=== PATIENT | female | born 1955 | race Caucasian/White ===

== ENCOUNTER 2023-12-27 22:10 | Emergency (ER) | payer MEDICARE, MEDICAID, SELFPAY ==
--- NOTE | ~2023-12-27 | CT_ITS ---
EXAMINATION: CT pelvis wo con DATE: 12/27/2023 23:54 INDICATION: Sacrococcygeal pain. Fall. TECHNIQUE: Computed tomography (CT) of the pelvis was performed without intravenous contrast. Automat ed exposure control and iterative reconstruction technique were employed. The dose-length product was 673.58 mGy-cm. COMPARISON: None FINDINGS: There is diverticulosis of the colon without evidence of diverticulitis. Bone alignment is normal. No fracture. There is mild osteoarthritis of the hips. There are dystrophic calcifications in volving left obturator internus muscle, which is smaller than the right. There is moderate lumbar spo ndylosis. There is a chronic compression fracture of L5. There is mild osteoarthritis of the sacrococ cygeal joints. IMPRESSION: 1. No acute fracture. Reviewed, dictated and finalized at location E. E PRINCIPAL IMPRESSION: 1. No acute fracture.
--- NOTE | ~2023-12-27 | CT_ITS ---
EXAMINATION: CT brain wo con DATE: 12/27/2023 22:38 INDICATION: Head injury. TECHNIQUE: Computed tomography (CT) of the head was performed without intravenous contrast. The mA wa s adjusted according to patient size. Iterative reconstruction technique was employed. The dose-lengt h product was 681.00 mGy-cm. COMPARISON: None FINDINGS: There is an old infarct involving right frontal, parietal, and occipital lobes and right in sula. There is no intracranial hemorrhage, acute infarction, or abnormal intracranial mass lesion. Th e ventricles are normal in size. The orbits are normal. There is mild mucosal thickening in the ethmo id sinuses. There is a small left mastoid effusion. IMPRESSION: 1. Large old infarct in the expected distribution of right middle cerebral artery. Reviewed, dictated and finalized at location E. ING MILL OPERATOR IMPRESSION: 1. Large old infarct in the expected distribution of right middle cerebral luann ry.
--- NOTE | ~2023-12-27 | CT_ITS ---
EXAMINATION: CT cervical spine wo con DATE: 12/27/2023 22:42 INDICATION: Head injury. TECHNIQUE: Computed tomography (CT) of the cervical spine was performed without intravenous contrast. Automated exposure control and iterative reconstruction technique were employed. The dose-length pro duct was 375.94 mGy-cm. COMPARISON: None FINDINGS: The visualized portions of the lung apices demonstrate emphysema. The patient's head is rot ated to her right. There is 6 degrees levocurvature of cervical spine. There is mild chronic anterior wedging of T1 vertebral body. There is mildly decreased disc height at C3-C4 and C4-C5, severely dec reased disc height at C5-C6, and mildly decreased disc height at C6-C7. The following disc levels are specifically discussed: C2-C3: There is mild bilateral uncovertebral joint osteoarthritis. There is mild bilateral facet join t osteoarthritis. There is no neural foraminal stenosis. There is no central canal stenosis. C3-C4: There is moderate bilateral uncovertebral joint osteoarthritis. There is moderate right and mi ld left facet joint osteoarthritis. There is no neural foraminal stenosis. There is mild central eliana l stenosis. C4-C5: There is mild bilateral uncovertebral joint osteoarthritis. There is moderate bilateral facet joint osteoarthritis. There is mild bilateral neural foraminal stenosis. There is mild central canal stenosis. C5-C6: There is severe bilateral uncovertebral joint osteoarthritis. There is moderate right and mild left facet joint osteoarthritis. There is mild bilateral neural foraminal stenosis. There is mild ce ntral canal stenosis. C6-C7: There is mild bilateral uncovertebral joint osteoarthritis. There is mild bilateral facet join t osteoarthritis. There is no neural foraminal stenosis. There is no central canal stenosis. C7-T1: There is no uncovertebral joint osteoarthritis. There is mild bilateral facet joint osteoarthr itis. There is no neural foraminal stenosis. There is no central canal stenosis. IMPRESSION: 1. No fracture. 2. Severe spondylosis at C5-C6 and mild spondylosis at other levels. 3. Emphysema. Reviewed, dictated and finalized at location E. GER TRANSPORTATION PLANNING
[2023-12-27 22:13] VITALS: BP 125/75; PULSE 60; RESP 20; TEMP 36.6; O2SAT 100
--- NOTE | 2023-12-27 23:29 | ED.FALL ---
HPI - Fall General Chief Complaint: Fall Stated Complaint: fall Time Seen by Provider: 12/27/23 22:24 Source: patient Mode of arrival: EMS Limitations: dementia History of Present Illness HPI Narrative: Patient is a 68-year-old female, with past medical history of CVA, who presents the ED via EMS with report of a fall. Patient is a resident of [facility]. Per [facility] report, patient had a fall earlier today in which she fell and struck her forehead. Patient denied LOC. She was then sent here for further evaluation. Patient is reportedly on Eliquis. Patient is a poor historian. Unable to tell me further how the fall occurred. She also complains of pain to her tailbone which is new from today. Denies chest pain, difficulty breathing. Related Data Allergies Allergy/AdvReac Type Severity Reaction Status Date / Time Penicillins Allergy Severe Verified 05/14/11 10:44 Review of Systems Review of Systems: CONSTITUTIONAL: Denies fever, chills, or sweats. CARDIOVASCULAR: Denies chest pain. RESPIRATORY: Denies dyspnea. GASTROINTESTINAL: Denies abdominal pain, nausea, vomiting. MUSCULOSKELETAL: See HPI. NEUROLOGIC: See HPI. All systems reviewed & are unremarkable except as noted in HPI and below Exam Narrative: GENERAL: Elderly, frail, non-toxic, in no acute distress. HEAD: Normocephalic, atraumatic. No wounds or contusions. RESPIRATORY: Airway patent, respirations nonlabored. Clear to auscultation bilaterally, no rales, rhonchi, wheezing. CARDIOVASCULAR: Regular rate and rhythm ABDOMINAL: Soft, nontender, nondistended. Normoactive BS. MUSCULOSKELETAL: Limited range of motion of left arm due to previous CVA. Right upper extremity and orthopedic stabilizer splint. No midline thoracic or lumbar spinal tenderness. Mild tenderness in directly over coccyx. SKIN: Warm, dry, normal color. NEURO: A&O X2. Speech clear. Intermittently confused. No ataxic movements. PSYCHIATRIC: Appropriate mood and affect. Normal interaction. Course Vital Signs Vital signs: Vital Signs Temperature 98 F 12/27/23 22:13 Pulse Rate 60 12/27/23 22:13 Respiratory Rate 20 12/27/23 22:13 Blood Pressure 125/75 12/27/23 22:13 Pulse Oximetry 100 12/27/23 22:13 Oxygen Delivery Nasal Cannula 12/27/23 22:13 Oxygen Flow Rate 4 12/27/23 22:13 Temperature 98 F 12/27/23 22:13 Pulse Rate 60 12/27/23 22:13 Respiratory Rate 20 12/27/23 22:13 Blood Pressure 125/75 12/27/23 22:13 Pulse Oximetry 100 12/27/23 22:13 Oxygen Delivery Nasal Cannula 12/27/23 22:13 Oxygen Flow Rate 4 12/27/23 22:13 MDM - Fall MDM Narrative Medical decision making narrative: Patient presented to ED from local [facility] with ground level fall, head injury, reportedly on Eliquis. Hx CVA, bedbound. CT brain and cervical spine without acute traumatic findings. Does show large old infarct. Patient also complaining of pain to tail bone, TTP on exam. CT pelvis obtained and also without traumatic findings, no acute fracture. Patient will be discharged back to [facility]. Discussed return precautions, pain management. D/C in stable condition. Medical Records Attestation: I reviewed the patient's medical records. Imaging Data Attestation: I personally reviewed and interpreted this imaging study as follows: Radiologist's impression: ITS Impressions Head CT 12/27/23 22:45 IMPRESSION: 1. Large old infarct in the expected distribution of right middle cerebral artery. Cervical Spine CT 12/27/23 22:48 IMPRESSION: 1. No fracture. 2. Severe spondylosis at C5-C6 and mild spondylosis at other levels. 3. Emphysema. Pelvis CT 12/27/23 23:58 IMPRESSION: 1. No acute fracture. Discharge Plan Discharge Clinical Impression: Fall from ground level Closed head injury Qualifiers: Encounter type: initial encounter Qualified Code(s): S09.90XA - Unspecified injury of head, initial encounter
[2023-12-28 00:19] VITALS: BP 122/68; PULSE 72; RESP 19; O2SAT 99
--- NOTE | 2023-12-28 00:22 | PC.NURSE ---
Patient began to start showing signs of altered mental status. Patient was saying that it was November. Per EMS patient was A&Ox3-4 en route.
== END 2023-12-28 00:59 ==
PROVIDERS: Emergency Provider Physician Assistant
DX: S09.90XA Unspecified injury of head, initial encounter (principal); S30.0XXA Contusion of lower back and pelvis, initial encounter; W19.XXXA Unspecified fall, initial encounter; Z86.73 Personal history of transient ischemic attack (TIA), and cerebral infarction without residual deficits
CPT/HCPCS: 70450; 72125; 72192; 99284

== ENCOUNTER 2023-12-31 11:42 | Emergency (ER) | payer MEDICARE, MEDICAID, SELFPAY ==
[2023-12-31] VITALS (11 sets, daily range): BP systolic 110–139; BP diastolic 56–71; PULSE 57–98; RESP 19–29; TEMP 37.1; O2SAT 96–100
--- NOTE | ~2023-12-31 | CT_ITS ---
EXAMINATION: CT thoracic lumbar wo con DATE: 12/31/2023 12:34 INDICATION: Trauma. Back pain. TECHNIQUE: Computed tomography (CT) of the thoracic and lumbar spine was performed without intravenou s contrast. The dose-length product was 1704.57 mGy-cm. Automated exposure control and iterative arthur nstruction technique were employed. COMPARISON: None FINDINGS: There is mild superior endplate compression fracture of L5 which is chronic. There is mild multilevel thoracic and lumbar spondylosis. There is accentuated thoracic kyphosis. Mild wedge-shaped appearance to 2 T5-T9, likely chronic. There are multiple left renal stones. There is emphysema. No pneumothorax. There is atherosclerosis without evidence for aneurysm. IMPRESSION: 1. No acute abnormality of the thoracic or lumbar spine. Reviewed, dictated and finalized at location A. M CRANE OPERATOR
--- NOTE | ~2023-12-31 | CT_ITS ---
EXAMINATION: CT cervical spine wo con DATE: 12/31/2023 12:34 INDICATION: Trauma TECHNIQUE: Computed tomography (CT) of the cervical spine was performed without intravenous contrast. The dose-length product was 220 mGy-cm. Automated exposure control and iterative reconstruction tech [email or web address] were employed. COMPARISON: CT dated 12/27/2023 FINDINGS: No acute fracture. There is cervical spondylosis, most severe at C5-6. Craniovertebral junc tion is normal. Odontoid process is normal. There is multilevel uncinate and facet hypertrophy. Mild levoscoliosis. There is emphysema in the lung apices. Study limited by motion. No paraspinal soft tis quirino abnormality. IMPRESSION: 1. No acute abnormality of the cervical spine. No significant interval change. Reviewed, dictated and finalized at location A. CE ACADEMY PROGRAM COORDINATOR
--- NOTE | ~2023-12-31 | CT_ITS ---
EXAMINATION: CT brain wo con DATE: 12/31/2023 12:34 INDICATION: Trauma. Head injury. TECHNIQUE: Computed tomography (CT) of the head was performed without intravenous contrast. The dose- length product was 832.33 mGy-cm. Automated exposure control and iterative reconstruction technique w ere employed. COMPARISON: CT dated 12/27/2023 FINDINGS: Large chronic infarction of the right middle cerebral artery distribution. No ventriculomeg jerry or midline shift. Study limited by motion artifact. Basilar cisterns are patent. There is intracr anial atherosclerosis. There are scattered mild periventricular and subcortical white matter changes, most likely related to small vessel ischemic disease (microangiopathy). No significant abnormality o f the sinuses or mastoids. No depressed skull fractures. IMPRESSION: 1. No acute intracranial abnormality. No interval change. Reviewed, dictated and finalized at location A. NSED SURVEYOR
--- NOTE | 2023-12-31 12:09 | ED.FALL ---
HPI - Fall General Chief Complaint: Fall Stated Complaint: fall History of Present Illness HPI Narrative: 68-year-old female presenting to the emergency department for evaluation after having a fall from bed. Patient does stay at a local intermediate and patient was reportedly leaning out of bed when she fell struck her head and injuring her neck tailbone. Patient denies any loss consciousness. Patient does have history CVA but is not blood thinners per intermediate. Related Data Allergies Allergy/AdvReac Type Severity Reaction Status Date / Time Penicillins Allergy Severe Verified 05/14/11 10:44 Review of Systems Review of Systems: All systems reviewed & are unremarkable except as noted in HPI and below Exam Narrative: APPEARANCE: Well appearing, no pain, no distress, well-nourished. HEAD: normocephalic, atraumatic. EYES: PERRLA/EOMI, conjunctivae clear. NOSE: Normal no drainage EARS:TMS clear with good light reflex. THROAT: Pharynx clear, no exudate. NECK: Supple. No adenopathy, no masses. RESPIRATORY: Airway patent, respirations nonlabored. Clear to auscultation bilaterally, no rales, rhonchi, wheezing. CARDIOVASCULAR: Regular rate and rhythm without murmurs rubs or gallops. ABDOMINAL: Soft, nontender, nondistended, normal bowel sounds MUSCULOSKELETAL: Right arm is in an external fixation NEURO: Alert. Cranial nerves II through XII intact. Grossly intact SKIN: Warm, dry. Normal Color Course Course Emergency Course: No acute injury and patient was discharged back to her care facility. Vital Signs Vital signs: Vital Signs Pulse Rate 98 12/31/23 11:49 Respiratory Rate 20 12/31/23 11:49 Blood Pressure 119/67 12/31/23 11:49 Pulse Oximetry 100 12/31/23 11:49 Oxygen Delivery Nasal Cannula 12/31/23 11:49 Oxygen Flow Rate 2 12/31/23 11:49 Temperature 98.8 F 12/31/23 12:02 Pulse Rate 64 12/31/23 14:24 Respiratory Rate 19 12/31/23 14:24 Blood Pressure 122/70 12/31/23 14:24 Pulse Oximetry 96 12/31/23 14:24 Oxygen Delivery Nasal Cannula 12/31/23 11:49 Oxygen Flow Rate 2 12/31/23 11:49 MDM - Fall MDM Narrative Medical decision making narrative: 68-year-old female presenting ED for evaluation after having a ground level fall. CTS of head neck cervical thoracic and lumbar spine were ordered due to locations of pain. Cervical brain, cervical spine, thoracic spine and lumbar spine were negative for acute fracture. Differential Diagnosis Differential diagnosis: Likely other (Subdural hematoma, subarachnoid fracture, cervical spine fracture, lumbar fracture) Lab Data Labs: Lab Results 12/31/23 Range/Units 12:11 POC Capillary Glucose 148 H (65-105) mg/dl Imaging Data Radiologist's impression: Impressions Head CT 12/31/23 12:35 IMPRESSION: 1. No acute intracranial abnormality. No interval change. Cervical Spine CT 12/31/23 12:40 IMPRESSION: 1. No acute abnormality of the cervical spine. No significant interval change. Thoracic/Lumbar Spine CT 12/31/23 12:43 IMPRESSION: 1. No acute abnormality of the thoracic or lumbar spine. Discharge Plan Discharge Clinical Impression: Head injury, Coccyx pain Patient Disposition: NH Detention/Asst Living Condition: Stable Instructions: Antibiotic Form Additional Instructions: Have close follow-up with your primary care physician Follow-up/Referrals: UNKNOWN,DOCTOR [Primary Care Provider] -
[2023-12-31 12:15] LABS: Glucose Point of Care 148 mg/dl (65-105)
== END 2023-12-31 14:27 ==
PROVIDERS: Emergency Provider Emergency Medicine
DX: S09.90XA Unspecified injury of head, initial encounter (principal); S39.92XA Unspecified injury of lower back, initial encounter; Z86.73 Personal history of transient ischemic attack (TIA), and cerebral infarction without residual deficits; W06.XXXA Fall from bed, initial encounter
CPT/HCPCS: 70450; 72125; 72128; 72131; 82948; 99284

== ENCOUNTER 2025-01-29 08:33 | Outpatient (CLI) | payer MEDICARE, MEDICAID, SELFPAY ==
--- NOTE | ~2025-01-29 | CT_ITS ---
EXAMINATION:CT diagnostic chest w con DATE: 01/29/2025 09:21 INDICATION: Cancer. TECHNIQUE: Computed tomography (CT) of the chest was performed with 75 mL Omnipaque 350 intravenous c ontrast. Automated exposure control and iterative reconstruction technique were employed. The dose-le ngth product (DLP) was 312.05 mGy-cm. COMPARISON: Thoracic spine CT 12/31/2023 FINDINGS: There is moderate emphysema. There are changes of left upper lobectomy. There is mild atele ctasis bilaterally. There is a 14 mm nodule in right lower lobe. There is a cluster of nodules measur ing up to 5 mm in right lower lobe. There is a 7 mm nodule in right upper lobe. No pleural effusion. There is a 12 mm nodule in the thyroid, likely not clinically significant. The heart size is normal. No pericardial effusion. There are coronary artery calcifications. There are cysts in the liver measu ring up to 14 mm. There are stones in left kidney measuring up to 7 mm. There is mild chronic anterio r wedging of multiple vertebral bodies. There is moderate thoracic spondylosis. IMPRESSION: 1. Pulmonary nodules measuring up to 14 mm suspicious for metastatic disease. 2. Moderate emphysema. 3. Left upper lobectomy. Reviewed, dictated and finalized at location A.
--- OUTSIDE RECORDS SUMMARY | 2025-01-29 09:00 | XMS_ITS | CONTINUITY OF CARE DOCUMENT ---
Author Name ashly shilpirodríguez Address Unknown Organization [facility] Address [address] [place] [address] Phone [phone] Care Team Providers Care Reinsurance Accountant Name Role Phone Rosy SHAH, Ralf Unavailable Ralf Gallegos MD Unavailable KYA ABREU MD Unavailable [phone] PROBLEMS Condition Status Date Provider Notes New patient consultation active Lana Vent imiglia RESIDENT CARE DIRECTOR Atrial fib paroxysmal active Lana Ventimi glia RESIDENT CARE DIRECTOR Diabetes mellitus, type 2 active Lana Raghav timiglia RESIDENT CARE DIRECTOR CVA active Lana Ventimiglia RESIDENT CARE DIRECTOR COPD active Lana Ventimiglia RESIDENT CARE DIRECTOR Hyperlipidemia active Lana Ventimiglia FN P Vitamin D deficiency active Lana Ventimig escobar RESIDENT CARE DIRECTOR Hypertension benign essential active Lana Ventimiglia RESIDENT CARE DIRECTOR PVD active Ralf Gallegos MD ENCOUNTERS Date Type Provider Location Encounter Diag nosis - In-person encounter Office Visit Ralf Gallegos MD [facility] PVD - In-person encounter Office Visit Ralf Gallegos MD [facility] - In-person encounter Office Visit Ralf Gallegos MD [facility] New patient consultationAtrial fib paroxysmalDiabetes mellitus, type 2CVACOPDHyperlipidemiaVitami n D deficiencyHypertension benign essential VITAL SIGNS Date Observation Value Provider Body Mass Index (Ratio) 28.03 kg/m2 Geoff Gallegos MD blood pressure, diastolic 69 mm[Hg] Roseanne heard Crandall blood pressure, systolic 106 mm[Hg] Evelyn solo Crandall oxygen saturation, oximetry 90 % Ramona Tahoma pulse rate 72 /min Ramona [place] respiratory rate E&M 12 [facility] 179 [lb_av] Ramona [place] height E&M 67 [in_i] [facility] blood pressure, cuff size regular An félix [place] blood pressure, cuff size regular Ke rri Gruenenfelder blood pressure, diastolic 70 mm[Hg] Ke rri Gruenenfelder blood pressure, systolic 102 mm[Hg] Birdie ri Gruenenfelder oxygen saturation, oximetry 95 % Rajani Grlilynenfelder respiratory rate E&M 12 /min Rajani perrinenenfelder pulse rate 52 /min Rajani Grlilynenfe lder height E&M 67 [in_i] Rajani Gruenenfe lder blood pressure, diastolic 79 mm[Hg] Li nkLogic blood pressure, systolic 116 mm[Hg] Kamla kLogic blood pressure, cuff size regular Do nnell Naveen blood pressure, diastolic 79 mm[Hg] Do nnell Naveen blood pressure, systolic 116 mm[Hg] Leonid mcgraw Naveen oxygen saturation, oximetry 98 % Layo Naveen respiratory rate E&M 16 /min Layo Naveen pulse rate 65 /min Layo Naveen height E&M 67 [in_i] Layo Hodge ALLERGIES Allergy Name Onset Date Reaction Criticality Status PENICILLIN High Criticality active HISTORY OF MEDICATION USE Medication Status Instructions Dates Provider Indications Com ments metoclopramide HCl 10 mg tablet active take 1 pill at bedtime Rajani Tavera cholecalciferol (vitamin D3) 1,250 mcg (50,000 unit) tablet active 1 tablet once a week Lana LI mirtazapine 30 mg tablet active 1 pill at bedtime as needed Rajani Tavera alprazolam 0.5 mg tablet active 1 pill a day as needed Rajani Tavera albuterol sulfate 1.25 mg/3 mL solution for nebulization active 1 mg using nebulizer four times a day Lana Keemishantal LI atorvastatin 40 mg tablet active TAKE 1 TABLET BY MOUTH AT BEDTIME Lana LI dicyclomine 20 mg tablet active 1 tablet via g-tube four times a day as needed Rajani Tavera Eliquis 5 mg tablet active TAKE ONE TABLET BY MOUTH TWICE A DAY Lana Ventimiglia RESIDENT CARE DIRECTOR Flonase Allergy Relief 50 mcg/actuation spray,suspension active ADMINISTER 2 SPRAYS INTO EACH NOSTRIL 2 TIMES A DAY. Lana Keemiglia RESIDENT CARE DIRECTOR Combivent Respimat 20-100 mcg/actuation mist active 1 puff as directed Lana LI metoprolol tartrate 25 mg tablet active Take 1 tablet by mouth twice a day depending on bp Rajani Tavera oxycodone 5 mg capsule active 1 capsule by mouth four times a day Lana LI SOCIAL HISTORY Date Observation Value Provider personal history of marijuana use no Ralf Gallegos MD drug use no Ralf Willett alcohol use no Ralf Willett smoking status Former smoker Ralf cruz MD personal history of marijuana use no Ralf Gallegos MD drug use no Ralf Willett alcohol use no Ralf Willett smoking status Former smoker Ralf cruz MD personal history of marijuana use no Lana Keemiglia RESIDENT CARE DIRECTOR drug use no Lana Bernalg escobar RESIDENT CARE DIRECTOR alcohol use no Lana Keemig escobar [facility] smoking status Former smoker Lana arce RESIDENT CARE DIRECTOR FAMILY HISTORY Family Member Condition Father Stroke/CVA Father Hypertension INSURANCE PROVIDERS Payer name Policy type / Coverage type Jenifer red republican ID ALDO [employer] Other [id number] 51 [place] MEDICARE Medicare [id number] HEALTHCARE AND FAMILY SERVICES Medicaid 0 [id number] ADVANCE DIRECTIVES Name Date DISCUSSED - NO DECISION MADE TREATMENT PLAN Date Name Performer Cardiology: o n statin therapy LDL 61 on last labs H er updated medication list for this problem includes: Atorvastatin 40 Mg Tablet (Atorvastatin) ..... Take 1 tablet by mouth at bedtime Ralf Gallegos MD Cardiology:Some impr ovement in left side Last visit P atient with recent ischemic CVA and admitted at [facility], will obtain those records to evaluate echo and carotid studies c ontinue eliquis and statin Ralf Gallegos MD Cardiology Ralf Gallegos MD Cardiology:This visi t has been a part of the consistent, comprehensive, and ongoing management of the chronic medical condition(s) listed above for the patient. N o recurrance on monitor. F/U in 6 months. Ralf Gallegos MD Cardiology: o n statin therapy LDL 61 on last labs H er updated medication list for this problem includes: Atorvastatin 40 Mg Tablet (Atorvastatin) ..... Take 1 tablet by mouth at bedtime Ralf Gallegos MD Cardiology Ralf Gallegos MD Cardiology: l ast Hgb A1C of 6.2% Ralf Gallegos MD Cardiology: P atient with recent ischemic CVA and admitted at [facility], will obtain those records to evaluate echo and carotid studies c ontinue eliquis and statin Ralf Gallegos MD Cardiology: M onitor showed a large amount of ectopy both supra and ventricular. No a-fib noted. c urrently in NSR, rate controlled. Will decrease BB to BID dosing W ill continue Eliquis for AC W ill do 2 week tele to determine afib burden H er updated medication list for this problem includes: Metoprolol Tartrate 25 Mg Tablet (Metoprolol tartrate) ..... Take 1 tablet by mouth twice a day Ralf Gallegos MD Cardiology:last Hgb A1C of 6.2% [facility] Cardiology:vitamin D of 13 on last labs W ill begin replacement therapy Gunlock Chilangomishantal [facility] Cardiology:on statin therapy LDL 61 on last labs H er updated medication list for this problem includes: Atorvastatin 40 Mg Tablet (Atorvastatin) ..... Take 1 tablet by mouth at bedtime Gunlock Chilangomiglreynold [facility] Cardiology:currently in NSR, rate controlled. Will decrease BB to BID dosing W ill continue Eliquis for AC W ill do 2 week tele to determine afib burden H er updated medication list for this problem includes: Metoprolol Tartrate 25 Mg Tablet (Metoprolol tartrate) ..... Take 1 tablet by mouth twice a day Gunlock Chilangomiglia [facility] Cardiology:Patient w ith recent ischemic CVA and admitted at [facility], will obtain those records to evaluate echo and carotid studies c ontinue eliquis and statin Lana Chilangomiglia [facility] Date Name Monitor - Telemetry (Mobile Cardiac) HISTORY OF PROCEDURES Procedure Date Procedure Name Provider Procedure Notes S tatus Complex e/m visit add on Ralf Gallegos MD completed EKG Ralf Gallegos MD complete d
--- OUTSIDE RECORDS SUMMARY | 2025-01-29 09:00 | XMS_ITS | Clinical Summary ---
Author Organization [facility] Address [address] [place] [address] Care Team Providers Care Supervisor Properties Name Role Phone Daly Redmond DO Primary Care Provider [phone] Source Comments [facility],non-owned Affiliates and Associated Physician Practices is amultiple site organization consisting of ambulatory clinics and hospital sitesin [place], [place], [place] and [place]. This disclosure is being madepursuant to the Care Everywhere program and may not contain all information available regarding this patient. Last updated 18.[facility] Allergies Active Allergy Reactions Criticality Noted Date Comments Penicillins Anaphylaxis High 04/10/2019 Medications * Be aware that medications may not be up to date on this document. Alwaysverify current medications with the patient. Medication Sig Dispensed Refills Start Date End Date Status albuterol (ACCUNEB) 1.25 MG/3ML nebulizer solution 02/27/2019 Active ALPRAZolam (XANAX) 1 MG tablet Take 0.5 (one-half) tablet by mouth once daily 03/25/2019 Active VENTOLIN HFA 108 (90 Base) MCG/ACT inhaler 03/25/2019 Act marilu fluticasone propionate (FLONASE) 50 MCG/ACT nasal spray 03/22/2019 Active dicyclomine (BENTYL) 20 MG tablet Take 1 (one) tablet by mouth 4 times daily Active mirtazapine (REMERON) 30 MG tablet Take 0.5 (one-half) tablet by mouth at bedtime Active OXYGEN Use as directed Active apixaban (Eliquis) 5 MG tablet 1 (one) tablet by Enteral Tube route 2 times daily 12/23/2023 Active metoprolol tartrate IR (Lopressor) 25 MG tablet 1 (one) tablet by Enteral Tube route every 6 hours 12/23/2023 Active atorvastatin (Lipitor) 40 MG tablet 1 (one) tablet by Enteral Tube route at bedtime 12/23/2023 Active metoclopramide (Reglan) 10 MG tablet Take 1 (one) tablet by mouth at bedtime 12/23/2023 Active vitamin D3 (Cholecalciferol) 25 MCG (1000 UNITS) tablet 1 (one) tablet by Enteral Tube route once daily 12/23/2023 Active oxyCODONE (Roxicodone) 5 MG/5ML oral solutionIndications:Se izure (HCC),Cerebrovascular accident (CVA), unspecified mechanism (HCC) 2.5 mL by Enteral Tube route every 6 hours as needed 15 mL 12/23/2023 Active Active Problems Problem Noted Date Diagnosed Date Status epilepticus 11/16/2023 Seizure 11/16/2023 Other closed nondisplaced fr acture of proximal end of right humerus, initial encounter 11/16/2023 Endotracheally intubated 11/16/2023 Cerebrovascular accident (CVA), unspecified mech anism 11/16/2023 COPD (chronic obstructive pulmonary disease) 09/2024 Hx of cancer of lung 11/16/2023 History of lobectomy of lung 11/16/2023 CAD (coronary artery disease) 11/16/2023 Family History Medical History Relation Name Comments Hypertension Father Relation Name Status Comments Father Social History Tobacco Use Types Packs/Day Years Used Date Smoking Tobacco: Former Cigarettes 1 45 Smokeless Tobacco: Never Tobacco Cessation:Counseling Given: Not Answered Alcohol Use Standard Drinks/Week Comments Yes 1 (1 standard drink = 0.6 oz pur e alcohol) AUDIT-C Answer Date Recorded Q1: How often do you have a drink containing alc ohol? Patient declined 11/16/2023 Q2: How many drinks containi ng alcohol do you have on a typical day when you are drinking? Patient declined 11/16/2023 Q3: How often do you have si x or more drinks on one occasion? Patient declined 11/16/2023 PHQ-2 Answer Date Recorded Patient Health Questionnaire-2 Score 0 02/29/2024 Sex and Gender Information Value Date Recorded Sex Assigned at Not on file Gender Identity Not on file Sexual Orientation Not on file Last Filed Vital Signs Vital Sign Reading Time Taken Comments Blood Pressure 102/68 01/29/2024 9:53 AM CDT Pulse 83 01/29/2024 9:53 AM CDT Temperature 36.1 C (97 F) 01/24/2024 10:18 AM CDT Respiratory Rate 10 01/29/2024 9:53 AM CDT Oxygen Saturation 88% 01/24/2024 10:18 AM CDT Inhaled Oxygen Concentration 32% 12/14/2023 5 :48 PM HOUSEMAN Weight 78.5 kg (173 lb) 02/29/2024 10:06 AM CDT Height 167.6 cm (5' 6 ) 11/17/2023 8:00 AM HOUSEMAN Body Mass Index 27.92 11/17/2023 8:00 AM HOUSEMAN Plan of Treatment Health Maintenance Due Date Last Done Comments BONE DENSITY TESTING 1957 COLOGUARD (AGES 45-75) - COLON CA SCREENING 1957 COLON MONITORING 1957 COLONOSCOPY - COLON CA SCREENING 1957 CT COLONOGRAPHY - COLON CA SCREENING 1957 Colorectal Cancer Screening 1957 FIT - COLON CA SCREENING 1957 FLEX SIG - COLON CA SCREENING 1957 MAMMOGRAM 1957 MEDICARE AWV 12 MONTHS 1957 HEPATITIS C SCREENING 08/15/1975 DTAP/TDAP/TD VACCINES (1 - Tdap) 1976 PNEUMOCOCCAL VACCINE 50+ (1 of 2 - PCV) 1976 LUNG CANCER SCREENING 2007 ZOSTER VACCINE (1 of 2) 2007 Respiratory Syncytial Virus (RSV) Vaccine Pt: or over 60 yrs (1 - Risk 60-74 years 1-dose series) 2017 COVID-19 VACCINE ( - season) 2024 INFLUENZA VACCINE (#1) 2024 08/06/2018, 2013 DEPRESSION SCREENING 11/06/2024 11/16/2023 SCREENING FOR DIABETES 12/25/2026 , 12/25/2023, 12/25/2023, Additional history exists HEPATITIS B VACCINE Aged Out No longe r eligible based on patient's age to complete this topic HIB VACCINE Aged Out No longer eligi ble based on patient's age to complete this topic HPV VACCINE Aged Out No longer eligi ble based on patient's age to complete this topic MENINGOCOCCAL (Group B) VACCINE SHARED DECISION-MAKING Aged Out No longer eligible based on patient's age to complete this topic MENINGOCOCCAL GROUPS A/C/Y/W VACCINE Aged Out No longer eligible based on patient's age to complete this topic Medical Devices Implanted Type Area Web Press Operator Helper Offset Device Identifier Shelf Expiration Date Model / Serial / Lot 9 Holes 153mm Right Extra Long Implanted:Qty: 1 on 12/01/2023 by Alex Merchant MD at [facility] Right: Humerus [id number] S / / Screw 3.5mm 6mm 24mm 2.5mm Ft Slf-Tap Implanted:Qty: 2 on 12/01/2023 by Alex Merchant MD at [facility] Right: Humerus [employer] [id number] / / Plate 1/3 Tblr [id number] Ss 2.7/3.5mm Implanted:Qty: 1 on 12/01/2023 by Alex Merchant MD at [facility] Right: Humerus [employer] [id number] / / Screw 2.7mm 24mm T8 Slf-Tap Lck Va Strdr Implanted:Qty: 1 on 12/01/2023 by Alex Merchant MD at [facility] Right: Humerus [employer] [id number] / / Screw 2.7mm 26mm T8 Slf-Tap Lck Va Strdr Implanted:Qty: 1 on 12/01/2023 by Alex Merchant MD at [facility] Right: Humerus [employer] [id number] / / Screw 2.7mm 30mm T8 Slf-Tap Lck Va Strdr Implanted:Qty: 1 on 12/01/2023 by Alex Merchant MD at [facility] Right: Humerus [employer] [id number] / / Screw 3.5mm 2.9mm 16mm T15 Ft Slf-Tap Implanted:Qty: 1 on 12/01/2023 by Alex Merchant MD at [facility] Right: Humerus [employer] [id number] / / Screw 3.5mm 2.9mm 20mm T15 Ft Slf-Tap Implanted:Qty: 3 on 12/01/2023 by Alex Merchant MD at [facility] Right: Humerus [employer] [id number] / / Screw 3.5mm 2.9mm 22mm T15 Ft Slf-Tap Implanted:Qty: 1 on 12/01/2023 by Alex Merchant MD at [facility] Right: Humerus [employer] [id number] / / Screw 3.5mm 6mm 14mm Ft Hank Slf-Tap Sm Implanted:Qty: 1 on 12/01/2023 by Alex Merchant MD at [facility] Right: Humerus [employer] [id number] / / Explanted Type Area Web Press Operator Helper Offset Device Identifier Shelf Expiration Date Model / Serial / Lot Screw 3.5mm 6mm 22mm 2.5mm Ft Slf-Tap Explanted:Qty: 2 on 12/01/2023 at [facility] Right: Humerus [employer] [id number] / / Procedures Procedure Name Priority Date/Time Associated Diagnosis Comments COMPREHENSIVE METABOLIC PANEL AM Draw 12/25/2023 10:58 AM HOUSEMAN from Last 3 Months or Most Recently Relevant to Health Maintenance Results * (ABNORMAL) COMPREHENSIVE METABOLIC PANEL (12/25/2023 10:58 AM HOUSEMAN) BUN 11 7 - 26 mg/dL 12/25/2023 12:[address] [facility] Creatinine 0.38(L) 0.56 - 0.96 mg/dL 12/25/2023 12:[address] [facility] Sodium 145 136 - 145 mmol/L 12/25/2023 12:[address] [facility] Potassium 3.5 3.5 - 4.5 mmol/L 12/25/2023 12:[address] [facility] Chloride 107 98 - 107 mmol/L 12/25/2023 12:[address] [facility] CO2 32(H) 22 - 29 mmol/L 12/25/2023 12:[address] [facility] Glucose 136(H) 70 - 115 mg/dL 12/25/2023 12:[address] [facility] Calcium 9.3 8.4 - 10.2 mg/dL 12/25/2023 12:[address] [facility] Protein Total 6.5 6.0 - 8.3 g/dL 12/25/2023 12:[address] [facility] Albumin 2.9(L) 3.4 - 5.0 g/dL 12/25/2023 12:[address] [facility] Bilirubin Total 0.6 0.2 - 1.2 mg/dL 12/25/2023 12:[address] [facility] Alkaline Phosphatase 205(H) 40 - 150 U/L 12/25/2023 12:[address] [facility] ALT 33 5 - 55 U/L 12/25/2023 12:[address] [facility] AST 22 5 - 34 U/L 12/25/2023 12:[address] [facility] Anion Gap 6 6 - 16 12/25/2023 12:[address] [facility] BUN/Creatinine Ratio 29(H) 7 - 23 12/25/2023 12:[address] [facility] Osmolality Calculated 301(H) 275 - 295 mOsm/kg 12/25/2023 12:[address] [facility] Albumin/Globulin Ratio 0.8(L) 1.1 - 2.3 12/25/2023 12:[address] [facility] eGFR by CKD-EPI >90 >=90 mL/min/1.7 3 m2 12/25/2023 12:[address] [facility] Blood BLOOD SPECIMEN / Unknown Lab Venipuncture / Unknown 12/25/2023 10:58 AM HOUSEMAN 12/25/2023 12:08 PM [facility] Madina Carson MD LAB - CHEMISTRY ORD ERABLES [facility] [address] [place] [address], [facility] [phone] from Last 3 Months or Most Recently Relevant to Health Maintenance Advance Directives * Full Code (Latest Code Status on File) Date Activated Date Inactivated Comments 11/16/2023 2:44 PM 12/25/2023 5:14 PM Care Teams Supervisor Properties Relationship Specialty Start Date End Date Daly Redmond DO [address] [address] PCP - General 03/06/19
--- OUTSIDE RECORDS SUMMARY | 2025-01-29 09:00 | XMS_ITS | Encounter Summary ---
Author Organization [facility] Address [address] [place] [address] Care Team Providers Care Seismic Prospecting Observer Helper Name Role Phone Daly Redmond DO Primary Care Provider [phone] Encounter Details Date Type Department Care Team (Late st Contact Info) Description 04/19/2019 Telephone [facility] [address] [place] [phone] Sowmya Kellogg RN Social History Tobacco Use Types Packs/Day Years Used Date Smoking Tobacco: Every Day Cigarettes 1 45 Smokeless Tobacco: Never Alcohol Use Standard Drinks/Week Comments Yes 1 (1 standard drink = 0.6 oz pur e alcohol) Sex and Gender Information Value Date Recorded Sex Assigned at Not on file Gender Identity Not on file Sexual Orientation Not on file documented as of this encounter Progress Notes * Sowmya Kellogg RN - 04/19/2019 9:57 AM CDT IR received a request for R lower lung 10 mm nodule bx. Spoke to the referral office who would likethe bx. Done post PET ( PET is on schedule for 04/29/29 ) . 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
--- OUTSIDE RECORDS SUMMARY | 2025-01-29 09:00 | XMS_ITS | Continuity of Care Document ---
Author Organization [facility] Address [address] [place] [address] Phone Care Team Providers Care Comprehensive Advisor Name Role Phone Thompson OD, Ortiz Unavailable Unavailable Advance Directives Directive Yes / No Effective Date File Name No Information Encounters Encounter Description Practice Location Reason(s) For Visit Diagnoses Date Provider Providers Copied on Encounter [facility], [address], [place], [place], [id number], [place] tel:[phone] [facility] No Information Nov-0 1-200 1 Thompson OD Ortiz. [address], [place], [address], [place]. tel:[phone] Family History Family Member Type Diagnosis Age At Onset No Information Payers Payer name Insurance type Covered libertarian ID Authoriza tion(s) Medicaid [facility] [id number] Social History Type Description Quantity Date Captured [...]
--- OUTSIDE RECORDS SUMMARY | 2025-01-29 09:00 | XMS_ITS ---
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 okay, it's normal. Depression: 2-3/10 Anxiety/Panic attacks: 7-8/10 Anger/Irritability: Denies Hallucinations/Paranoia: Denies Current Suicidal ideation: Denies Past suicidal ideation: Denies Homicidal ideation: Denies Medical concerns: Bilateral Lung Cancer-going to [facility] receiving radiation right now. Oncologist-cannot recall name Wears 3L home O2 Hospitalizations/medication changes by other providers: Denies Support system: , Daughter, Friends Labs: Had recent blood work will have sign disclosure Screening [place] Suicide Severity Rating Scale (LF) Do you want to initiate with: Screener form 1. Wish to be : Have you wished you were or wished you could go to sleep and not wake up?: No 2. Suicidal Thoughts: Have you actually had any thoughts of killing yourself?: No 6. Suicide Behavior Question: Have you ever done anything,started to do anything, or prepared to end your life?: No Interpretation:: Low Risk Do Not Use CSSRS Interpretation and Follow Up Plan CSSRS Interpretation and Follow Up Plan CSSRS Screen documented using SF: Yes Moderate or High risk requir es selection of a follow up plan: CSSRS No/Low: intervention not needed at this time Examination Category Sub-Category Detail Notes Category Not es General Examination PSYCH: full range o f affect/positive mood , speech clear , no auditory or visual hallucinations , thought content without suicidal ideation or delusions , alert, oriented x4 , cognitive function intact , cooperative with exam , judgement and insight good , thought process logical, goal directed , thought content without delusions , denies any current thoughts/plans of suidicial/homicidal ideation Mental Status Exam Protective Factors: , Children, Coping Skills, Denies Intent/Desire/Means
--- OUTSIDE RECORDS SUMMARY | 2025-01-29 09:00 | XMS_ITS ---
Author Organization [facility] Address [address] [place] [address] Care Team Providers Care Manager Lean Name Role Phone Doris Lynch Primary Care Provider REASON FOR VISIT 2 Month Psych F/U & Med Refill Medications Medication SIG (Take, Route, Frequency, Duration) Notes Start Date End Date Status Ambien CR 6.25 MG 1 tablet at bedtime as needed Orally Once a day as needed for sleep for 30 days Active Xanax 1 MG 1 tablet Orally up t o Twice a day as needed for SEVERE anxiety for 30 days 09/21/2023 Active Zolpidem Tartrate ER 6.25 mg TAKE 1 TABLET BY MOUTH AT BEDTIME NEEDED FOR SLEEP for 30 11/06/2023 Active Remeron 30 MG 1 tablet at bedtime Orally Once a day for 30 days Active Mirtazapine 30 mg TAKE 1 TABLET BY RAJIV TH AT BEDTIME for 30 Active Dicyclomine HCl 20 MG 1 tablet Orally Th ree times a day for 30 day(s) Active Full Kit Nebulizer Set - as directed neb ulizer machine with full kit three times daily for 10 days 02/27/2019 Active Albuterol Sulfate 1.25 MG/3ML 3 ml as needed Inhalation every 8 hrs for 10 days 02/27/2019 Active ALPRAZolam 1 mg TAKE 1 TABLET BY RAJIV TH UP TO TWICE A DAY NEEDED FOR SEVERE ANXIETY FOR 30 DAYS for 30 09/07/2023 Active Flonase 50 MCG/DOSE 1 spray in each nost ril Nasally Once a day for 30 days 01/31/2018 Active Albuterol Sulfate HFA 108 (90 Base) MCG/ACT 2 puffs as needed Inhalation every 4-6 hrs Active Benadryl Allergy 25 MG 1 tablet at bedti me as needed Orally Once a day Active Encounters Encounter Location Date Provider Diagnosis [address] [place] [address] 11/21/2023 Doris Lynch Plan Of Treatment No Information Progress Notes * Linda RAMIREZDOB:1955 (69 yo F)Acc No.[id number]:11/21/2023 UNLOCKED PROGRESS NOTE Patient: Linda MCLAUGHLIN Provider: Roslyn Lynch, MSN, DIRECTOR VALIDATION-BC, PMHNP-BC :1955 A ge:68 Y S ex:Female Date:11/21/2023 Address:[address] [place], [place] [id number] Subjective: * Chief Complaints: * 1 . 2 Month Psych F/U & Med Refill. * Medical History: * Medications: T aking Benadryl Allergy 25 MG Tablet 1 tablet at bedtime as needed Orally Once a day , Taking Albuterol Sulfate HFA 108 (90 Base) MCG/ACT Aerosol Solution 2 puffs as needed Inhalation every 4-6 hrs , Taking Dicyclomine HCl 20 MG Tablet 1 tablet Orally Three times a day , Taking Albuterol Sulfate 1.25 MG/3ML Nebulization Solution 3 ml as needed Inhalation every 8 hrs , Taking Full Kit Nebulizer Set - Miscellaneous as directed nebulizer machine with full kit three times daily , Taking Flonase 50 MCG/DOSE Inhaler 1 spray in each nostril Nasally Once a day , Taking ALPRAZolam 1 mg Tablet TAKE 1 TABLET BY MOUTH UP TO TWICE A DAY NEEDED FOR SEVERE ANXIETY FOR 30 DAYS , Taking Mirtazapine 30 mg Tablet TAKE 1 TABLET BY MOUTH AT BEDTIME , Taking Remeron 30 MG Tablet 1 tablet at bedtime Orally Once a day , Taking Xanax 1 MG Tablet 1 tablet Orally up to Twice a day as needed for SEVERE anxiety , Taking Ambien CR 6.25 MG Tablet Extended Release 1 tablet at bedtime as needed Orally Once a day as needed for sleep , Taking Zolpidem Tartrate ER 6.25 mg Tablet Extended Release TAKE 1 TABLET BY MOUTH AT BEDTIME NEEDED FOR SLEEP Objective: * Vitals: Assessment: Plan: * Treatment: * * Electronic signature of Doris Lynch , [id number] on 01/29/2025 at 08:59 AM CDT Sign off status: Pending * Provider: Roslyn Lynch, MSN, DIRECTOR VALIDATION-BC, PMHNP-BC Date: 0 11/21/2023 Generated for Cheryle hernandez/Yosef/Parish on: 0 01/29/2025 08:59 AM CDT
[2025-01-29 09:11] LABS: Estimated Glomerular Filt Rate > 60
== END 2025-01-29 08:34 | disposition home or self-care (01) ==
PROVIDERS: Visit Provider Nurse Practitioner Family
DX: J44.9 Chronic obstructive pulmonary disease, unspecified (principal); R91.8 Other nonspecific abnormal finding of lung field; J43.9 Emphysema, unspecified
CPT/HCPCS: 71260; Q9967

== ENCOUNTER 2025-02-17 15:41 | Outpatient (CLI) | payer MEDICARE, MEDICAID, SELFPAY ==
[2025-02-17 15:57] LABS: Basophils Absolute Auto 0.1 K/mm3 (0.0-0.1); Basophils Percent Auto 0.8 % (0.2-1.2); Eosinophils Absolute Auto 0.2 K/mm3 (0-0.3); Eosinophils Percent Auto 2.6 % (0-4.4); Hematocrit 45.4 % (37.0-47.0); Hemoglobin 14.5 g/dL (12.0-15.0); Immature Granulocyte Absolute 0.03 K/mm3 (0.00-0.031); Immature Granulocyte Percent A 0.4 % (0-0.5); Lymphocytes Absolute Auto 1.07 K/mm3 (0.9-3.2); Mean Corpuscular HGB Conc 31.9 g/dl (32-36); Mean Corpuscular Hemoglobin 30.3 pg (26-34); Mean Platelet Volume 11.7 fl (7.4-10.4); Monocytes Absolute Auto 0.6 K/mm3 (0.1-0.6); Monocytes Percent Auto 8.4 % (2.6-8.5); Neutrophils Absolute Auto 5.7 K/mm3 (1.3-6.7); Neutrophils Percent Auto 73.8 % (45.5-73.1); Platelet Count Result 220 k/mm3 (150-375); Red Blood Count 4.78 M/mm3 (4.2-5.4); Red Cell Distribution Width 12.7 % (11.5-14.5); White Blood Count 7.7 K/mm3 (4.5-10.0)
[2025-02-17 16:34] LABS: Alanine Aminotransferase 16 U/L (6-35); Albumin Level 4.1 g/dL (3.5-5.1); Alkaline Phosphatase 110 U/L (38-126); Anion Gap 7 mmol/L (4-12); Aspartate Amino Transferase 31 U/L (14-36); Bilirubin,Total 0.7 mg/dL (0.2-1.3); Blood Urea Nitrogen 14 mg/dL (7-17); Calcium 9.2 mg/dL (8.4-10.2); Carbon Dioxide 30 mmol/L (22-30); Chloride 101 mmol/L (98-107); Estimated Glomerular Filt Rate > 60; Glucose 131 mg/dL (65-110); Potassium 3.8 mmol/L (3.4-5.0); Sodium 138 mmol/L (137-145)
--- OUTSIDE RECORDS SUMMARY | 2025-02-17 17:25 | XMS_ITS | Clinical Summary ---
Author Organization [facility] [employer] [facility] [employer] Address [address] [place] [address] Care Team Providers Care Invoice Machine Operator Name Role Phone Daly Redmond DO Primary Care Provider [phone] Source Comments [facility],non-owned Affiliates and Associated Physician Practices is amultiple site organization consisting of ambulatory clinics and hospital sitesin [place], [place], [place] and [place]. This disclosure is being madepursuant to the Care Everywhere program and may not contain all information available regarding this patient. Last updated 18.[facility] Allergies Active Allergy Reactions Criticality Noted Date Comments Penicillins Anaphylaxis High 04/10/2019 Medications * Be aware that medications may not be up to date on this document. Alwaysverify current medications with the patient. albuterol (ACCUNEB) 1.25 MG/3ML nebulizer solution 9 Active ALPRAZolam (XANAX) 1 MG tablet Take 0.5 (one-half) tablet by mouth once daily 9 Active VENTOLIN HFA 108 (90 Base) MCG/ACT inhaler 9 Active fluticasone propionate (FLONASE) 50 MCG/ACT nasal spray 9 Active dicyclomine (BENTYL) 20 MG tablet Take 1 (one) tablet by mouth 4 times daily Active mirtazapine (REMERON) 30 MG tablet Take 0.5 (one-half) tablet by mouth at bedtime Active OXYGEN Use as directed Active apixaban (Eliquis) 5 MG tablet 1 (one) tablet by Enteral Tube route 2 times daily 4 Active metoprolol tartrate IR (Lopressor) 25 MG tablet 1 (one) tablet by Enteral Tube route every 6 hours 4 Active atorvastatin (Lipitor) 40 MG tablet 1 (one) tablet by Enteral Tube route at bedtime 4 Active metoclopramide (Reglan) 10 MG tablet Take 1 (one) tablet by mouth at bedtime 4 Active vitamin D3 (Cholecalciferol ) 25 MCG (1000 UNITS) tablet 1 (one) tablet by Enteral Tube route once daily 4 Active oxyCODONE (Roxicodone) 5 MG/5ML oral solutionIndicati ons:Seizure (HCC),Cerebrovas cular accident (CVA), unspecified mechanism (HCC) 2.5 mL by Enteral Tube route every 6 hours as needed 15 mL 4 Active Active Problems Problem Noted Date Diagnosed [...] Recorded Patient Health Questionnaire-2 Score 0 02/29/2024 Comments No Sex and Gender Information Value Date Recorded Sex Assigned at Not on file Legal Sex Female 5:50 AM BUTTON BUTTONHOLE MARKER Gender Identity Not on file Sexual Orientation [...] Oxygen Concentration 32% 12/14/2023 5 :48 PM BUTTON BUTTONHOLE MARKER Weight 78.5 kg (173 lb) 02/29/2024 10:06 AM CDT Height 167.6 cm (5' 6 ) 11/17/2023 8:00 AM BUTTON BUTTONHOLE MARKER Body Mass Index 27.92 11/17/2023 8:00 AM BUTTON BUTTONHOLE MARKER Plan of Treatment Upcoming Encounters Date Type Department Care Team (Late st Contact Info) Description 03/05/2025 1:30 PM CDT Office Visit [facility] - General Surgery [address] [place] [address], [place] [address] Health Maintenance Due Date Last Done Comments [...] 2017 COVID-19 VACCINE ( - season) 2024 DEPRESSION SCREENING 11/06/2024 11/16/2023 INFLUENZA VACCINE (Season Ended) 2025 08/06/2018, 09/11/2014 SCREENING FOR DIABETES 12/25/2026 , 12/25/2023, 12/25/2023, [...] this topic Medical Devices Implanted Type Area Centrifugal Machine Tender Device Identifier Shelf Expiration Date Model / Serial / Lot 9 Holes 153mm Right Extra Long Implanted:Qty: 1 on 12/01/2023 by Alex Merchant MD at [facility] Right: Humerus [id number] S / / Screw 3.5mm 6mm 24mm 2.5mm Ft Slf-Tap Implanted:Qty: 2 on 12/01/2023 by Alex Merchant MD at [facility] Right: Humerus Synthes Usa [id number] / / Plate 1/3 Tblr [id number] Ss 2.7/3.5mm Implanted:Qty: 1 on 12/01/2023 by Alex Merchant MD at [facility] Right: Humerus [employer] [id number] / / Screw 2.7mm 24mm T8 Slf-Tap Lck Va Strdr Implanted:Qty: 1 on 12/01/2023 by Alex Merchant MD at [facility] Right: Humerus [employer] [id number] / / Screw 2.7mm 26mm T8 Slf-Tap Lck Va Strdr Implanted:Qty: 1 on 12/01/2023 by Alex Merchant MD at [facility] Right: Humerus [employer] [id number] / / Screw 2.7mm 30mm T8 Slf-Tap Lck Va Strdr Implanted:Qty: 1 on 12/01/2023 by Alex Merchant MD at [facility] Right: Humerus [employer] [id number] / / Screw 3.5mm 2.9mm 16mm T15 Ft Slf-Tap Implanted:Qty: 1 on 12/01/2023 by Alex Merchant MD at [facility] Right: Humerus [employer]sa 212.104 / / Screw 3.5mm 2.9mm 20mm T15 Ft Slf-Tap Implanted:Qty: 3 on 12/01/2023 by Alex Merchant MD at [facility] Right: Humerus [employer] 212.106 / / Screw 3.5mm 2.9mm 22mm T15 Ft Slf-Tap Implanted:Qty: 1 on 12/01/2023 by Alex Merchant MD at [facility] Right: Humerus [employer]sa 212.107 / / Screw 3.5mm 6mm 14mm Ft Hank Slf-Tap Sm Implanted:Qty: 1 on 12/01/2023 by Alex Merchant MD at [facility] Right: Humerus [employer] [id number] / / Explanted Type Area Centrifugal Machine Tender Device Identifier Shelf Expiration Date Model / Serial / Lot Screw 3.5mm 6mm 22mm 2.5mm Ft Slf-Tap Explanted:Qty: 2 on 12/01/2023 at [facility] Right: Humerus [employer]sa 204.822 / / Procedures Procedure Name Priority Date/Time Associated Diagnosis Comments COMPREHENSIVE METABOLIC PANEL AM Draw 12/25/2023 10:58 AM BUTTON BUTTONHOLE MARKER from Last 3 Months or Most Recently Relevant to Health Maintenance Results * (ABNORMAL) COMPREHENSIVE METABOLIC PANEL (12/25/2023 10:58 AM BUTTON BUTTONHOLE MARKER) BUN 11 7 - 26 mg/dL 12/25/2023 12:38 PM [facility] Creatinine 0.38(L) 0.56 - 0.96 mg/dL 12/25/2023 12:38 PM [facility] Sodium 145 136 - 145 mmol/L 12/25/2023 12:38 PM BUTTON BUTTONHOLE MARKER [facility] Potassium 3.5 3.5 - 4.5 mmol/L 12/25/2023 12:38 PM [facility] Chloride 107 98 - 107 mmol/L 12/25/2023 12:38 PM [facility] CO2 32(H) 22 - 29 mmol/L 12/25/2023 12:38 PM [facility] Glucose 136(H) 70 - 115 mg/dL 12/25/2023 12:38 PM [facility] Calcium 9.3 8.4 - 10.2 mg/dL 12/25/2023 12:38 PM [facility] Protein Total 6.5 6.0 - 8.3 g/dL 12/25/2023 12:38 PM [facility] Albumin 2.9(L) 3.4 - 5.0 g/dL 12/25/2023 12:38 PM [facility] Bilirubin Total 0.6 0.2 - 1.2 mg/dL 12/25/2023 12:38 PM [facility] Alkaline Phosphatase 205(H) 40 - 150 U/L 12/25/2023 12:38 PM [facility] ALT 33 5 - 55 U/L 12/25/2023 12:38 PM [facility] AST 22 5 - 34 U/L 12/25/2023 12:38 PM [facility] Anion Gap 6 6 - 16 12/25/2023 12:38 PM [facility] BUN/Creatinine Ratio 29(H) 7 - 23 12/25/2023 12:38 PM [facility] Osmolality Calculated 301(H) 275 - 295 mOsm/kg 12/25/2023 12:38 PM [facility] Albumin/Globulin Ratio 0.8(L) 1.1 - 2.3 12/25/2023 12:38 PM [facility] eGFR by CKD-EPI >90 >=90 mL/min/1.7 3 m2 12/25/2023 12:38 PM [facility] Blood BLOOD SPECIMEN / Unknown Lab Venipuncture / Unknown 12/25/2023 10:58 AM BUTTON BUTTONHOLE MARKER 12/25/2023 12:08 PM [facility] Madina Carson MD LAB - CHEMISTRY ORDERABLES Final Result [facility] [address] [place] [address], [facility] [phone] from Last 3 Months or Most Recently Relevant to Health Maintenance Insurance [facility] MEDICARE COMMERCIAL GENERIC Advance Directives * Full Code (Latest Code Status on File) Date Activated Date Inactivated Comments 11/16/2023 2:44 PM 12/25/2023 5:14 PM Care Teams Invoice Machine Operator Relationship Specialty Start Date End Date Daly Redmond DO [address] [place] [address] PCP - General 03/06/19
--- OUTSIDE RECORDS SUMMARY | 2025-02-17 17:25 | XMS_ITS ---
Author Organization [facility] Address [address] [place] [address] Care Team Providers Care Auto Mechanics Instructor Name Role Phone Cris, Cari Primary Care Provider [phone] Allergies Allergen (clinical drug ingredient) Drug/Non Drug [...] Active Encounters Encounter Location Date Provider Diagnosis [address] [place] [address] 09/21/2023 Dorisrocio Noblei Tobacco dependence F17.200 ; [...] May also contact the 24-hour crisis hotline ([facility]), refer to the closest emergency [...] Notes * Lisa RAMIREZ:1955 (68 yo F)Acc No.[id number]:09/21/2023 Patient: Linda MCLAUGHLIN Provider: JEN Pope :1955 A ge:68 Y S ex:Female Date:09/21/2023 Address:[address] [place], [place] [id number] Subjective: * Chief Complaints: * 2 Month [...] COVID-19 emergency, with client/parental/guardian consent. S creening: [place] Suicide Severity Rating Scale (LF) D o [...] M edical concerns: Bilateral Lung Cancer-going to [facility] receiving radiation right now. O ncologist-cannot recall [...] 30.0 30 6.25 MG NA Doris Lynch [employer] - [id number] [employer] [place], [place] NA 0 [place] 1 [id number] 09/07/2023 09/07/2023 ALPRAZolam 34.0 30 1 MG NA Doris Lynch [facility] - [id number] [employer] [place], [place] NA 0 [place] 1 [id number] 08/10/2023 08/10/2023 ALPRAZolam 34.0 30 1 MG NA Doris Lynch [facility] - [id number] Barbra. * Medications: T akingBenadryl Allergy 25 [...] May also contact the 24-hour crisis hotline ([facility]), refer tot closest emergency room [...] - Medication Check,Psychiatric medication refill) * * INE FILLER SERVICER Sign off status: Completed true * Provider: JEN Pope Date: 1 11/21/2022 Generated for Cheryle hernandez/Yosef/Parish on: 0 02/17/2025 05:25 PM CDT History and Physical Notes * HPI [...] Going for walks, playing games, playing with [employer] (x5) Drugs/ETOH/nicotine: Tobacco smoker 10/day; No ETOH [...] Denies Medical concerns: Bilateral Lung Cancer-going to [facility] receiving radiation right now. Oncologist-cannot recall name Wears 3L home O2 Hospitalizations/medication changes by other providers: Denies Support system: , Daughter, Friends Labs: Had recent blood work will have sign disclosure Screening [place] Suicide Severity Rating Scale (LF) Do you [...]
--- OUTSIDE RECORDS SUMMARY | 2025-02-17 17:25 | XMS_ITS | Continuity of Care Document ---
Author Organization [facility] Address [address] [place] [address] Phone Care Team Providers Care Motion Picture Narrator Name Role Phone Thompson OD, Ortiz Unavailable Unavailable Advance Directives Directive Yes / No Effective Date File Name No Information Encounters Encounter Description Practice Location Reason(s) For Visit Diagnoses Date Provider Providers Copied on Encounter [facility], [address], [place], [place], [id number], [place] tel:[phone] [facility] No Information Nov-0 1-200 1 Thompson OD Ortiz. [address] , [address], [place], [address], [place]. tel:[phone] Family History Family Member Type Diagnosis Age At Onset No Information Payers Payer name Insurance type Covered republican ID Authoriza tion(s) [facility] [id number] Social History Type Description Quantity Date Captured [...]
--- OUTSIDE RECORDS SUMMARY | 2025-02-17 17:25 | XMS_ITS | CONTINUITY OF CARE DOCUMENT ---
Author Name ashly shilpirodríguez Address Unknown Organization [facility] Address [address] [place] [address] Phone [phone] Care Team Providers Care Knife Machine Operator Name Role Phone Rosy SHAH, Ralf Unavailable [phone] Ralf Gallegos MD Unavailable KYA ABREU MD Unavailable [phone] PROBLEMS Condition Status Date Provider Notes New patient consultation active Lana Vent imiglia PROPERTY CUSTODIAN Atrial fib paroxysmal active Lana Ventimi glia PROPERTY CUSTODIAN Diabetes mellitus, type 2 active Lana Raghav timiglia PROPERTY CUSTODIAN CVA active Lana Ventimiglia PROPERTY CUSTODIAN COPD active Lana Ventimiglia PROPERTY CUSTODIAN Hyperlipidemia active Lana Ventimiglia FN P Vitamin D deficiency active Lana Ventimig escobar PROPERTY CUSTODIAN Hypertension benign essential active Lana Ventimiglia PROPERTY CUSTODIAN PVD active Ralf Gallegos MD ENCOUNTERS Date Type Provider Location Encounter Diag nosis - In-person encounter Office Visit Ralf Gallegos MD [facility] PVD - In-person encounter Office Visit Ralf Gallegos MD [facility] - In-person encounter Office Visit Ralf Gallegos MD [facility] New patient consultationAtrial fib paroxysmalDiabetes mellitus, type 2CVACOPDHyperlipidemiaVitami n D deficiencyHypertension benign essential VITAL SIGNS Date Observation Value Provider Body Mass Index (Ratio) 28.03 kg/m2 Geoff Gallegos MD blood pressure, diastolic 69 mm[Hg] Roseanne heard Crandall blood pressure, systolic 106 mm[Hg] Evelyn solo Crandall oxygen saturation, oximetry 90 % Ramona Paterson pulse rate 72 /min Ramona Paterson respiratory rate E&M 12 /min [facility] E&M 179 [lb_av] Ramona Paterson height E&M 67 [in_i] [facility] blood pressure, cuff size regular An félix Paterson blood pressure, cuff size regular Ke rri [...] BY MOUTH TWICE A DAY Lana Ventimiglia PROPERTY CUSTODIAN Flonase Allergy Relief 50 mcg/actuation spray,suspension active ADMINISTER 2 SPRAYS INTO EACH NOSTRIL 2 TIMES A DAY. Lana Keemiglia PROPERTY CUSTODIAN Combivent Respimat 20-100 mcg/actuation mist active 1 [...] history of marijuana use no Lana Keemiglia PROPERTY CUSTODIAN drug use no Lana Bernalg escobar PROPERTY CUSTODIAN alcohol use no Lana Keemig escobar [facility] smoking status Former smoker Lana arce PROPERTY CUSTODIAN FAMILY HISTORY Family Member Condition Father Stroke/CVA Father Hypertension INSURANCE PROVIDERS Payer name Policy type / Coverage type Jenifer red republican ID [employer] [place] Other [id number] 51 [place] MEDICARE Medicare [id number] HEALTHCARE AND FAMILY SERVICES Medicaid 0 [id number] ADVANCE DIRECTIVES Name Date DISCUSSED - NO [...] with recent ischemic CVA and admitted at [facility], will obtain those records to evaluate echo [...] with recent ischemic CVA and admitted at [facility], will obtain those records to evaluate echo [...] Gallegos MD Cardiology:last Hgb A1C of 6.2% [facility] Cardiology:vitamin D of 13 on last labs W ill begin replacement therapy Elliott Chilangomishantal [facility] Cardiology:on statin therapy LDL 61 on last labs H er updated medication list for this problem includes: Atorvastatin 40 Mg Tablet (Atorvastatin) ..... Take 1 tablet by mouth at bedtime Elliott Chilangomiglreynold [facility] Cardiology:currently in NSR, rate controlled. Will decrease BB to BID dosing W ill continue Eliquis for AC W ill do 2 week tele to determine afib burden H er updated medication list for this problem includes: Metoprolol Tartrate 25 Mg Tablet (Metoprolol tartrate) ..... Take 1 tablet by mouth twice a day Elliott Chilangomiglia [facility] Cardiology:Patient w ith recent ischemic CVA and admitted at [facility], will obtain those records to evaluate echo and carotid studies c ontinue eliquis and statin Lana Chilangomiglia [facility] Date Name Monitor - Telemetry (Mobile Cardiac) HISTORY OF PROCEDURES Procedure Date Procedure Name Provider Procedure Notes S tatus Complex e/m visit add on Ralf Gallegos MD completed EKG Ralf Gallegos MD complete d
--- OUTSIDE RECORDS SUMMARY | 2025-02-17 17:25 | XMS_ITS | Encounter Summary ---
Author Organization [facility] Health Address [facility] [place] [address] Care Team Providers Care Computing Systems Mechanic Name Role Phone Daly Redmond DO Primary Care Provider [phone] Encounter Details Date Type Department Care Team (Late Contact Info) Description 04/19/2019 Telephone [facility] [address] [place] [address] Sowmya Kellogg RN Social History Tobacco Use Types Packs/Day Years Used Date Smoking Tobacco: Every Day Cigarettes 1 45 Smokeless Tobacco: Never Alcohol Use Standard Drinks/Week Comments Yes 1 (1 standard drink = 0.6 oz pur e alcohol) Comments Unknown Sex and Gender Information Value Date Recorded Sex Assigned at Not on file Legal Sex Female 5:50 AM AUDIO PRODUCTION MANAGER Gender Identity Not on file Sexual Orientation [...] documented in this encounter Plan of Treatment Upcoming Encounters Date Type Department Care Team (Late Contact Info) Description 03/05/2025 1:30 PM CDT Office Visit [facility] - General Surgery [address] [facility], [place] [address] documented as of this encounter Visit Diagnoses Not on filedocumented in this encounter Additional Health Concerns Infection Onset Date Last Indicated Resolved Time COVID-19 Under Investigation 11/21/2023 11/21/2023 11/21/2023 12:30 PM AUDIO PRODUCTION MANAGER documented as of this encounter Care Teams Computing Systems Mechanic Relationship Specialty Start Date End Date Daly Redmond DO [address] [place] [address] PCP - General 03/06/19 documented as of this encounter
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
--- OUTSIDE RECORDS SUMMARY | 2025-02-17 17:26 | XMS_ITS ---
Author Organization [facility] Address [address] [place] [address] Care Team Providers Care Photo Mask Inspector Name Role Phone Doris Lynch Primary Care [...] Active Encounters Encounter Location Date Provider Diagnosis [address] [place] [address] 11/21/2023 Doris Lynch Plan Of Treatment No Information Progress Notes * Linda RAMIREZDOB:1955 (69 yo F)Acc No.[id number]:11/21/2023 UNLOCKED PROGRESS NOTE Patient: Linda MCLAUGHLIN Provider: Roslyn Lynch, MSN, PROGRAMMER OPERATOR NUMERICAL CONTROL-BC, PMHNP-BC :1955 A ge:68 Y S ex:Female Date:11/21/2023 Address:[address] [place], [place] [id number] Subjective: * Chief Complaints: * 1 . [...] * Electronic signature of Doris Lynch , [id number] on 02/17/2025 at 05:25 PM CDT Sign off status: Pending * Provider: Roslyn Lynch, MSN, PROGRAMMER OPERATOR NUMERICAL CONTROL-BC, PMHNP-BC Date: 0 11/21/2023 Generated for Cheryle hernandez/Yosef/Parish on: 0 02/17/2025 05:25 PM CDT
== END 2025-02-17 15:42 | disposition home or self-care (01) ==
PROVIDERS: Visit Provider Internal Medicine Hematology & Oncology
DX: C34.12 Malignant neoplasm of upper lobe, left bronchus or lung (principal)
CPT/HCPCS: 36415; 80053; 85025

== ENCOUNTER 2025-04-01 11:54 | Outpatient (CLI) | payer MEDICARE, MEDICAID, SELFPAY ==
--- NOTE | ~2025-04-01 | PE_ITS ---
EXAMINATION: PET skull to mid thigh DATE: 04/01/2025 14:35 INDICATION: Left lung cancer TECHNIQUE: Blood glucose level was 126 mg/dL. 8.381 mCi of 18-fluorodeoxyglucose (18-FDG) was adminis tered i.v. Low dose computed tomography (CT) images were acquired from the base of the brain to the p roximal thighs for attenuation correction and anatomic localization. Positron emission tomography (PE T) images were acquired in the same distribution beginning 56 minutes after injection. Images includi ng fused PET/CT images were reconstructed in axial, coronal, and sagittal planes. Automated exposure control technique was employed. The dose-length product was 1019.36mGy-cm. COMPARISON: Chest CT dated 01/29/2025 FINDINGS: Head/neck: There is decreased activity such with a large region of encephalomalacia involving the right middle c erebral artery vascular distribution consistent with sequela of chronic infarct. There is symmetric i ncreased activity in the oral cavity, palatine tonsils, submandibular glands, laryngeal muscles and o cular muscles without CT correlate, likely physiologic. No pathologically enlarged cervical lymphaden opathy or suspicious foci of increased FDG uptake in the visualized head or neck. Chest: Moderate emphysema. Postoperative change of prior left thoracotomy and left upper lobectomy. No signi ficant interval change in a 12 x 10 mm right lower lobe nodule which without significant increased FD G uptake with maximal SUV of 2.2. There has also been no significant change in a 9 x 7 mm right upper lobe nodule as well as a cluster of smaller nodules the largest measuring up to 5 mm in the right lo wer lobe, all without abnormal FDG uptake. There is a more solid appearance to a 3 mm nodule in the l eft lower lobe near the apex which without activity. Mild atelectasis/scarring at the lung bases, lef t greater than right. Heart size is normal. Atherosclerotic coronary artery calcific location. Thorac ic aorta is normal in caliber. No pathologically enlarged or FDG avid thoracic lymphadenopathy. Small sliding-type hiatal hernia. Abdomen/pelvis/proximal thighs: There is mild uptake along the tract of a left upper quadrant percutaneous gastrostomy tube with bulb within the body the stomach. Physiologic renal accumulation and excretion of FDG activity in the kid neys, bladder and along portions of ureters. Bilateral nonobstructing renal stones the largest the le ft kidney measuring up to 1 cm. There are multiple scattered low-attenuation hepatic cysts, the large st measuring up to 1.7 cm. Normal degree and heterogenous pattern of increased uptake throughout the liver without radiologic correlate or dominant FDG avid lesion. The gallbladder, pancreas, spleen and bilateral adrenal glands are normal. Mild uptake scattered throughout the bowels without radiologic correlate, also likely physiologic. Mild diverticulosis without adjacent comparison to suggest divert iculitis0. Normal appendix. The uterus is not identified and has likely been surgically resected. The re is mild increased activity with maximal SUV of 5.1 associated with a 6 x 5 x 2.3 cm lesion in the subcutaneous fat along the left lateral margin of the sacrum and coccyx which demonstrates thickened soft tissue density rim and internal septations surrounding central macroscopic fat. No other abnorm al foci of increased FDG uptake or pathologically enlarged lymphadenopathy in the abdomen, pelvis or proximal thighs. Musculoskeletal: Small focus of marked increased FDG activity with maximal SUV of 23.6 at the T3 spinous process. Ther e appears be subtle cortical thinning at the left side of the base of the spinous process which is montgomery spicious for metastatic disease. There is an additional small focus of increased uptake at the latera l right sixth rib which is without radiologic correlate on CT. Curvilinear peripheral sclerosis under lying the articular cortex of the right humeral head suggestive of a small region of osteonecrosis. I nternal fixation with plate and screws and cerclage wires along the right humeral diaphysis. Mild upt kennedy associated with enthesopathy at the bilateral ischial tuberosities and the linear aspera along th e proximal bilateral femurs. IMPRESSION: 1. There is increased FDG uptake associated with a couple bone lesions at the lateral right sixth rib and more prominently at the T3 spinous process what appears to be a region of subtle cortical erosio n new since CT dated 12/31/2023 and concerning for metastatic disease. 2. Moderate emphysema with no significant increased FDG uptake associated with a few indeterminate pu lmonary nodules which are without significant change in the right L2 short interval since the prior s tudy. Despite the absence of significant increased FDG uptake, these could be infectious, inflammator y or malignant/metastatic in etiology. Recommend correlation with any earlier prior outside imaging. 3. Mild FDG uptake associated with a 6 x 5 x 2.3 cm mixed fat tissue and soft tissue density lesion i n the subcutaneous tissues along the left lateral margin of the sacrum and coccyx with appearance fav oring sequela of fat necrosis. The soft tissue density appears relatively thin along septations and a t the periphery of the lesion with no more nodular soft tissue density to elevate concern for neoplas m. Reviewed, dictated and finalized at location A. IMPRESSION: 1. There is increased FDG uptake associated with a couple bone lesions at the l ateral right sixth rib and more prominently at the T3 spinous process what appe ars to be a region of subtle cortical erosion new since CT dated 12/31/2023 and concerning for metastatic disease. 2. Moderate emphysema with no significant increased FDG uptake associated with a few indeterminate pulmonary nodules which are without significant change in t he right L2 short interval since the prior study. Despite the absence of signif icant increased FDG uptake, these could be infectious, inflammatory or malignan t/metastatic in etiology. Recommend correlation with any earlier prior outside imaging. 3. Mild FDG uptake associated with a 6 x 5 x 2.3 cm mixed fat tissue and soft t issue density lesion in the subcutaneous tissues along the left lateral margin of the sacrum and coccyx with appearance favoring sequela of fat necrosis. The soft tissue density appears relatively thin along septations and at the periphe ry of the lesion with no more nodular soft tissue density to elevate concern fo r neoplasm.
--- OUTSIDE RECORDS SUMMARY | 2025-04-01 12:03 | XMS_ITS ---
Author Organization [facility] Address [address] [place] [address] Care Team Providers Care Release And Technical Records Clerk Name Role Phone Doris Lynch Primary Care Provider [phone] REASON FOR VISIT 2 Month Psych F/U [...] Active Encounters Encounter Location Date Provider Diagnosis [address] [place] [address] 11/21/2023 Doris Lynch Plan Of Treatment No Information Progress Notes * Linda RAMIREZDOB:1955 (69 yo F)Acc No.[id number]:11/21/2023 UNLOCKED PROGRESS NOTE Patient: Linda MCLAUGHLIN Provider: Roslyn Lynch, MSN, BRONZE CHASER-BC, PMHNP-BC :1955 A ge:68 Y S ex:Female Date:11/21/2023 Address:[address] [place], [place] [id number] Subjective: * Chief Complaints: * 1 . [...] * Electronic signature of Doris Lynch , [id number] on 04/01/2025 at 12:03 PM CDT Sign off status: Pending * Provider: Roslyn Lynhc, MSN, BRONZE CHASER-BC, PMHNP-BC Date: 0 11/21/2023 Generated for Cheryle hernandez/Yosef/Parish on: 0 04/01/2025 12:03 PM CDT
--- OUTSIDE RECORDS SUMMARY | 2025-04-01 12:03 | XMS_ITS | Continuity of Care Document ---
Author Organization [facility] Address [address] [facility] [address] [place] [address] Phone Care Team Providers Care Media Operator Name Role Phone Thompson OD, Ortiz Unavailable Unavailable Advance Directives Directive Yes / No Effective Date File Name No Information Encounters Encounter Description Practice Location Reason(s) For Visit Diagnoses Date Provider Providers Copied on Encounter [facility], [address], [place], [place], [id number], [place] tel:[phone] [facility] No Information Nov-0 1-200 1 Thompson OD Ortiz. [address] , [address], [place], [address], [place]. tel:[phone] Family History Family Member Type Diagnosis Age At Onset No Information Payers Payer name Insurance type Covered alliance party ID Authoriza tion(s) Medicaid [facility] [id number] Social History Type Description Quantity Date Captured [...]
--- OUTSIDE RECORDS SUMMARY | 2025-04-01 12:03 | XMS_ITS | CONTINUITY OF CARE DOCUMENT ---
Author Name ashly shilpirodríguez Address Unknown Organization [facility] Address [address] [facility] [address] [place] [address] Phone [phone] Care Team Providers Care Cloud Systems Architect Name Role Phone Rosy SHAH, Ralf Unavailable Ralf Gallegos MD Unavailable KYA ABREU MD Unavailable [phone] PROBLEMS Condition Status Date Provider Notes New patient consultation active Lana Vent imiglia [employer] Atrial fib paroxysmal active Lana Ventimi glia [employer] Diabetes mellitus, type 2 active Lana Raghav timiglia [employer] CVA active Lana Ventimiglia [employer] COPD active Lana Ventimiglia [employer] Hyperlipidemia active Lana Ventimiglia FN P Vitamin D deficiency active Lana Ventimig escobar [employer] Hypertension benign essential active Lana Ventimiglia [employer] PVD active Ralf Gallegos MD ENCOUNTERS Date Type Provider Location Encounter Diag nosis - In-person encounter Office Visit Ralf Gallegos MD [facility] - In-person encounter Office Visit Ralf Gallegos MD [facility] - In-person encounter Office Visit Ralf Gallegos MD [facility] New patient consultationAtrial fib paroxysmalDiabetes mellitus, type 2CVACOPDHyperlipidemiaVitami n D deficiencyHypertension benign essential VITAL SIGNS Date Observation Value Provider Body Mass Index (Ratio) 28.03 kg/m2 Geoff Gallegos MD blood pressure, diastolic 69 mm[Hg] Roseanne heard Crandall blood pressure, systolic 106 mm[Hg] Evelyn solo Crandall oxygen saturation, oximetry 90 % Ramona [place] pulse rate 72 /min Ramona [place] respiratory rate E&M 12 /min [facility] weight E&M 179 [lb_av] Ramona [place] height E&M 67 [in_i] [facility] blood pressure, cuff size regular An félix [place] blood pressure, cuff size regular Ke rri [...] BY MOUTH TWICE A DAY Lana Ventimiglia [employer] Flonase Allergy Relief 50 mcg/actuation spray,suspension active ADMINISTER 2 SPRAYS INTO EACH NOSTRIL 2 TIMES A DAY. Lana Keemiglia [employer] Combivent Respimat 20-100 mcg/actuation mist active 1 [...] history of marijuana use no Lana Keemiglia [employer] drug use no Lana Bernalg escobar [employer] alcohol use no Lana Keemig escobar [facility] smoking status Former smoker Lana arce [employer] FAMILY HISTORY Family Member Condition Father Stroke/CVA Father Hypertension INSURANCE PROVIDERS Payer name Policy type / Coverage type Jenifer red constitution party ID [employer] Other [id number] [place] MEDICARE Medicare [id number] HEALTHCARE AND FAMILY SERVICES Medicaid 0 [id number] ADVANCE DIRECTIVES Name Date DISCUSSED - NO [...] with recent ischemic CVA and admitted at [facility], will obtain those records to evaluate echo [...] with recent ischemic CVA and admitted at [facility], will obtain those records to evaluate echo [...] Gallegos MD Cardiology:last Hgb A1C of 6.2% [facility] Cardiology:vitamin D of 13 on last labs W ill begin replacement therapy Wadley Chilangomishantal [facility] Cardiology:on statin therapy LDL 61 on last labs H er updated medication list for this problem includes: Atorvastatin 40 Mg Tablet (Atorvastatin) ..... Take 1 tablet by mouth at bedtime Wadley Chilangomiglreynold [facility] Cardiology:currently in NSR, rate controlled. Will decrease BB to BID dosing W ill continue Eliquis for AC W ill do 2 week tele to determine afib burden H er updated medication list for this problem includes: Metoprolol Tartrate 25 Mg Tablet (Metoprolol tartrate) ..... Take 1 tablet by mouth twice a day Wadley Chilangomiglia [facility] Cardiology:Patient w ith recent ischemic CVA and admitted at [facility], will obtain those records to evaluate echo and carotid studies c ontinue eliquis and statin Lana Chilangomiglia [facility] Date Name Monitor - Telemetry (Mobile Cardiac) HISTORY OF PROCEDURES Procedure Date Procedure Name Provider Procedure Notes S tatus Complex e/m visit add on Ralf Gallegos MD completed EKG Ralf Gallegos MD complete d
--- OUTSIDE RECORDS SUMMARY | 2025-04-01 12:03 | XMS_ITS | Encounter Summary ---
Author Organization [facility] Address [address] [place] [address] [place] [address] Care Team Providers Care Agile Project Manager Name Role Phone Daly Redmond DO Primary Care Provider [phone] Encounter Details Date Type Department Care Team (Late st Contact Info) Description 04/19/2019 Telephone [facility] [address] [place] [address] Sowmya Kellogg RN Social History Tobacco Use Types Packs/Day Years Used Date Smoking Tobacco: Every Day Cigarettes 1 45 Smokeless Tobacco: Never Alcohol Use Standard Drinks/Week Comments Yes 1 (1 standard drink = 0.6 oz pur e alcohol) Comments Unknown Sex and Gender Information Value Date Recorded Sex Assigned at Not on file Legal Sex Female 5:50 AM FEED INSPECTION SUPERVISOR Gender Identity Not on file Sexual Orientation [...] Under Investigation 11/21/2023 11/21/2023 11/21/2023 12:30 PM FEED INSPECTION SUPERVISOR documented as of this encounter Care Teams Agile Project Manager Relationship Specialty Start Date End Date Daly Redmond DO [address] [place] [address] PCP - General 03/06/19 documented as of this encounter
--- OUTSIDE RECORDS SUMMARY | 2025-04-01 12:03 | XMS_ITS | Patient Health Record ---
Author Organization [facility] Address [address] [place] [address] Care Team Providers Care Kitchen Lead Name Role Phone Cris Doris Primary Care Provider [phone] Allergies Allergen (clinical drug ingredient) Drug/Non Drug [...] do you smoke? 6-10 Section Notes: Family Ovviahh-npufih-orcgbrajgc, brother had MS and depression and addiction Occupational History-accounting Eduation Zoqmdyw-ppddcxd-Hgejityi degree Family Mesldjk-rhojfb-xzifalnuqo, brother had MS and depression and addiction Occupational History-accounting Eduation Fuehrfp-zdobbra-Rixrkzgu degree Family Dgrnhir-bwmtjz-tbczfelmnt, brother had MS and depression and addiction Occupational History-accounting Eduation Clvvlkn-nztpman-Ihspkbyj degree Family Nrloeez-dmtldu-imxsezxuel, brother had MS and depression and addiction Occupational History-accounting Eduation Ynwibyq-abhmtqn-Rbknvzte degree Family Uvungkq-hyhztu-ihkhuxdswv, brother had MS and depression and addiction Occupational History-accounting Eduation Bknzfxo-legofxt-Yvfpnggv degree Family Nacxhuj-bwfola-twlazblxiv, brother had MS and depression and addiction Occupational History-accounting Eduation Imxcarp-pyoowmf-Fsqcsdyy degree Family Wrrtcoy-pmpbbj-srynuagxis, brother had MS and depression and addiction Occupational History-accounting Eduation Ejdcema-putrbyv-Kbskmhjp degree Family Lwusbfx-jxuddo-lpfafrbmde, brother had MS and depression and addiction Occupational History-accounting Eduation Idpchrt-tdkortj-Afiolayq degree Family Vbmxsqu-xugdwj-tyehhxizkb, brother had MS and depression and addiction Occupational History-accounting Eduation Lzylhru-jscwoge-Gtshjzjr degree Family Bpnzlth-dxscwb-alxkyurkig, brother had MS and depression and addiction Occupational History-accounting Eduation Inhuxza-nlgjpto-Qrjevajx degree Family Aztjxof-ifbkzs-rxciwhzmms, brother had MS and depression and addiction Occupational History-accounting Eduation Lfesxpp-pgxnahn-Yqnednxv degree Family Gpwqpqz-hqrlcq-jowijmtzde, brother had MS and depression and addiction Occupational History-accounting Eduation Myewjpw-gzzcdfs-Hjhtfsva degree Family Fovutkv-ppedud-eekmatvcll, brother had MS and depression and addiction Occupational History-accounting Eduation Etimghs-vnsctdd-Diafdrsr degree Family Yyrtnes-ifdkli-aeogcaaalt, brother had MS and depression and addiction Occupational History-accounting Eduation Tbftkll-utccfhk-Meevnxri degree Family Bmatipz-upiejs-dlxxhltrbs, brother had MS and depression and addiction Occupational History-accounting Eduation Osefxdx-yuqibxg-Rnsotwxy degree Family Esdddoo-ioaavw-gpevuxsorg, brother had MS and depression and addiction Occupational History-accounting Eduation Ckqwgds-kknwpnz-Xpdjueie degree Family Awtedbl-btwkol-rfiwcljnth, brother had MS and depression and addiction Occupational History-accounting Eduation Yqgtfuq-apkxjxd-Hluekiiu degree Family Ukjxivb-mwlzgm-vzplaewkth, brother had MS and depression and addiction Occupational History-accounting Eduation Mrrmath-yjfklua-Gdycdpnn degree Family Tuagbfi-gpuobm-rifkaxbtkp, brother had MS and depression and addiction Occupational History-accounting Eduation Ddkhwpa-fracqdb-Fzxvuuls degree Family Wmhgnoc-shsuus-rjjfphspmd, brother had MS and depression and addiction Occupational History-accounting Eduation Lddodjv-nvzawnt-Ovrzajip degree Family Yjtnifq-ydulpw-ecnimzmbii, brother had MS and depression and addiction Occupational History-accounting Eduation Vqadkmo-vudmitn-Jbknovlp degree Family Gnslqfp-yqdugn-vltdvkdvpp, brother had MS and depression and addiction Occupational History-accounting Eduation Sqiimtf-jrzyhik-Ddpmdkmx degree Family Eyzbwts-auoxqy-cacqgwmvat, brother had MS and depression and addiction Occupational History-accounting Eduation Uvtsjws-okcatby-Zepglgez degree Family Ddgnqjf-lduwtu-rosevzkmke, brother had MS and depression and addiction Occupational History-accounting Eduation Lucxpms-mtszgfd-Vjslhhph degree Family Docthvw-fewsvj-licbawzicy, brother had MS and depression and addiction Occupational History-accounting Eduation Fogazku-kbrpfeu-Gedwyako degree Family Vzbyqbp-cjkuqd-rmjqdvfbxs, brother had MS and depression and addiction Occupational History-accounting Eduation Ywvqxge-afxnafu-Axgqeqlc degree Family Bkxpwhp-bklqxm-jndsohdjcy, brother had MS and depression and addiction Occupational History-accounting Eduation Hslrxus-kfqdzot-Uepikslt degree Family Djnkmos-mipcsh-hkplxhtuwj, brother had MS and depression and addiction Occupational History-accounting Eduation Fzotpiu-tmaiehx-Rwxehvnm degree Family Lgnucqk-nkyuzm-ehacbamelw, brother had MS and depression and addiction Occupational History-accounting Eduation Uhhhaxw-hgizcbo-Szmqzcny degree Family Fgeiomx-mrjaud-jmvdncmqis, brother had MS and depression and addiction Occupational History-accounting Eduation Qlvfois-cpdgduh-Rtesdkbh degree Family Gnjixza-tpzlxi-qfkxlguepi, brother had MS and depression and addiction Occupational History-accounting Eduation Kvuanqx-sczkebb-Bwkwfoqs degree PRESCRIPTION # FILLED WRITTEN DRUG LABEL QTY DAYS STRENGTH MEDD PRESCRIBER PHARMACY REFILL NO. REFILLS STATE 01/10/2023 12/13/2022 ALPRAZolam 38.0 30 1 MG NA Karen Finley ([facility]) - [id number] [place] 1 [id number] 12/14/2022 12/13/2022 ALPRAZolam 38.0 30 1 MG NA Karen Finley ([facility]) - [id number] [place] 1 [id number] 11/18/2022 10/20/2022 ALPRAZolam 38.0 30 1 MG NA Karen Finley ([facility]) - [id number] Family Sdnxtij-aqfemh-ocfbtskeay, brother had MS and depression and addiction Occupational History-accounting Eduation Kooppxe-rroawzn-Nuthjujf degree PRESCRIPTION # FILLED WRITTEN DRUG LABEL QTY DAYS STRENGTH MEDD PRESCRIBER PHARMACY REFILL NO. REFILLS STATE 02/01/2023 01/19/2023 ALPRAZolam 34.0 30 1 MG NA Doris Lynch [facility] - [id number] [place] 1 [id number] 01/10/2023 12/13/2022 ALPRAZolam 38.0 30 1 MG NA Karen Finley ([facility]) - [id number] [place] PRESCRIPTION # FILLED WRITTEN DRUG LABEL QTY DAYS STRENGTH MME PRESCRIBER PHARMACY REFILL NO. REFILLS STATE 03/23/2023 02/23/2023 ALPRAZolam 34.0 30 1 MG NA Doris Lynch [facility] - [id number] [place] 1 [id number] 03/23/2023 03/23/2023 Zolpidem Tartrate 30.0 30 6.25 MG NA Doris Lynch [facility] - [id number] [place] 1 [id number] 02/24/2023 02/23/2023 Zolpidem Tartrate 30.0 30 6.25 MG NA Cris Doris [facility] - [id number] [place] 1 [id number] 02/23/2023 02/23/2023 ALPRAZolam 34.0 30 1 MG NA CrisCkrocio [facility] - [id number] PRESCRIPTION # FILLED WRITTEN DRUG LABEL QTY DAYS STRENGTH MME PRESCRIB[facility] PHARMACY REFILL NO. REFILLS STATE 05/18/2023 05/18/2023 ALPRAZolam 34.0 30 1 MG NA Cris Doris [facility] - [id number] [place] 1 [id number] 05/18/2023 05/18/2023 Zolpidem Tartrate 30.0 30 6.25 MG NA CrisCkrocio Bill[facility]ley [facility] - [id number] [employer] [place], [place] NA 0 [place] 1 [id number] 04/20/2023 04/20/2023 ALPRAZolam 34.0 30 1 MG NA CrisCkrocio Bill[facility]ley [facility] - [id number] [place] 1 [id number] 04/20/2023 04/20/2023 Zolpidem Tartrate 30.0 30 6.25 MG NA Cris Doris [facility] - [id number] PRESCRIPTION # FILLED WRITTEN DRUG LABEL QTY DAYS STRENGTH MME PRESCRIBER PHARMACY REFILL NO. REFILLS STATE 07/13/2023 07/13/2023 ALPRAZolam 34.0 30 1 MG NA Cris Doris [facility] - [id number] [place] 0 [place] 1 [id number] 07/13/2023 07/13/2023 Zolpidem Tartrate 30.0 30 6.25 MG NA Doris Lynch [facility] - [id number] [place] 0 [place] 1 [id number] 06/15/2023 06/15/2023 ALPRAZolam 34.0 30 1 MG NA Doris Lynch [facility] - [id number] Differential PRESCRIPTION # FILLED WRITTEN DRUG LABEL QTY DAYS STRENGTH MME PRESCRIBER PHARMACY REFILL NO. REFILLS STATE 09/07/2023 09/07/2023 Zolpidem Tartrate 30.0 30 6.25 MG NA Doris Lynch [facility] - [id number] [place] 0 [place] 1 [id number] 09/07/2023 09/07/2023 ALPRAZolam 34.0 30 1 MG NA Doris Lynch [facility] - [id number] [place] 0 [place] 1 [id number] 08/10/2023 08/10/2023 ALPRAZolam 34.0 30 1 MG NA Doris Lynch [facility] - [id number] Differential Family Qsdiyds-dzgikm-dwyrmtygfs, brother had MS and depression and addiction Occupational History-accounting Eduation Znbrndk-atmvvbj-Qzuarbeu degree Problems Problem Type SNOMED Code ICD Code Onset Dates Problem Status W/U Status Risk Notes Problem Tobacco user (629112970) Nicotine dependence, unspecified, uncomplicated (F17.200) Active confirmed Problem 32767026 Other chronic pain (G89.29) Active confirmed Problem 32267560 Unspecified chronic bronchitis (J42) Active confirmed Problem 294256763 Irritable bowel syndrome with diarrhea (K58.0) Active confirmed Problem 62679479 Tobacco dependence (F17.200) Active confirmed Problem 63601359 Anxiety (F41.9) Active confirmed Problem 77529051 Vitamin D deficiency (E55.9) Active confirmed Problem 639086144418294 Obesity (BMI 30.0-34.9) (E66.9) Active confirmed Problem Cancer (184861122) Cancer (C80.1) Active confir med Problem 020368884 Insomnia, unspecified type (G47.00) Active confirmed Problem 31454074 Hyperlipidemia, unspecified hyperlipidemia type (E78.5) Active confirmed Problem 48007882 Chronic obstructive pulmonary disease, unspecified COPD type (J44.9) Active confirmed Problem 94435282 Seasonal allergi c rhinitis due to pollen (J30.1) Active confirmed Problem 06844457 Pulmonary emphysema, unspecified emphysema type (J43.9) 03/06/20 19 Active confirmed Problem Exposure to streptococcal pharyngitis (event) (7900208074243) Strep throat exposure (Z20.818) Active confirmed Problem 349010506 Chronic obstructive pulmonary disease with acute exacerbation (J44.1) Active confirmed Problem 068442590 Pulmonary nodule seen on imaging study (R91.1) Active confirmed Plan Of Treatment Future Test Test Name Order Date Vitamin D, 25-Hydroxy* 12/18/2018 Lipid Panel w/ Chol/HDL Ratio 12/18/2018 Insurance Providers Payer Name Payer Address Payer Phone Subscriber Number Group Number Insured Name Patient Relationship to Insured Coverage Start Date Coverage End Date [employer] [address] [place] [address] [id number] Linda Gray Self - patient is the insured 4 2 MEDICARE PART A [address] [place] [address] [id number] Linda Gray Self - patient is the insured 2 MEDICAID [address] [place] [address] [id number] Linda Gray Self - patient is the insured 3 [employer] [address] [place] [address] [id number] Linda Gray Self - patient is the [...]
--- OUTSIDE RECORDS SUMMARY | 2025-04-01 12:03 | XMS_ITS | Clinical Summary ---
Author Organization [facility] Address [address] [place] [address] Care Team Providers Care Correctional Supervising Cook Name Role Phone Daly Redmond DO Primary Care Provider [phone] Source Comments [facility],non-owned Affiliates and Associated Physician Practices is amultiple site organization consisting of ambulatory clinics and hospital sitesin [place], [place], [place] and [place]. This disclosure is being madepursuant to the Care Everywhere program and may not contain all information available regarding this patient. Last updated 18.[facility] Allergies Active Allergy Reactions Criticality Noted Date [...] on file Legal Sex Female 5:50 AM BUS COMPANY MANAGER Gender Identity Not on file Sexual [...] Oxygen Concentration 32% 12/14/2023 5 :48 PM BUS COMPANY MANAGER Weight 78.5 kg (173 lb) 02/29/2024 10:06 AM CDT Height 167.6 cm (5' 6) 11/17/2023 8:00 AM BUS COMPANY MANAGER Body Mass Index 27.92 11/17/2023 8:00 AM BUS COMPANY MANAGER Plan of Treatment Health Maintenance Due Date Last Done Comments BONE DENSITY TESTING 1957 COLOGUARD (AGES 45-75) - COL ON CA SCREENING 1957 COLON MONITORING 1957 COLONOSCOPY - COLON CA SCREENING 1957 CT COLONOGRAPHY - COLON CA SCREENING 1957 Colorectal Cancer Screening 1957 FIT - COLON CA SCREENING 1957 FLEX SIG - COLON CA SCREENING 1957 MAMMOGRAM 1957 MEDICARE AWV 12 MONTHS 1957 HEPATITIS C SCREENING 08/15/1975 DTAP/TDAP/TD VACCINES (1 - Tdap) 1976 PNEUMOCOCCAL VACCINE 50+ (1 of 2 - PCV) 1976 ZOSTER VACCINE (1 of 2) 2007 Respiratory Syncytial Virus (RSV) Vaccine Pt: or over 60 yrs (1 - Risk 60-74 years 1-dose series) 2017 COVID-19 VACCINE (1 - 2023-2 5 season) 2024 DEPRESSION SCREENING 11/06/2024 11/16/2023 INFLUENZA VACCINE (Season Ended) 2025 08/06/2018, 09/11/2014 HEPATITIS B VACCINE Aged Out No longe [...] A/C/Y/W VACCINE Aged Out No longer eligible b ased on patient's age to complete this topic Medical Devices Implanted Type Area Supervisor Paper Coating Device Identifier Shelf Expiration Date Model / Serial / Lot 9 Holes 153mm Right Extra Long Implanted:Qty: 1 on 12/01/2023 by Alex Merchant MD at [facility] Right: Humerus [id number] S / / Screw 3.5mm 6mm 24mm 2.5mm Ft Slf-Tap Implanted:Qty: 2 on 12/01/2023 by Alex Merchant MD at [facility] Right: Humerus [employer] [id number] / / Plate 1/3 Tblr [id number] Ss 2.7/3.5mm Implanted:Qty: 1 on 12/01/2023 by Alex Merchant MD at [facility] Right: Humerus [employer] [id number] / / Screw 2.7mm 24mm T8 Slf-Tap Lck Va Strdr Implanted:Qty: 1 on 12/01/2023 by Alex Merchant MD at [facility] Right: Humerus [employer] 02.211.024 / / Screw 2.7mm 26mm T8 Slf-Tap Lck Va Strdr Implanted:Qty: 1 on 12/01/2023 by Alex Merchant MD at [facility] Right: Humerus [employer] 02.211.026 / / Screw 2.7mm 30mm T8 Slf-Tap Lck Va Strdr Implanted:Qty: 1 on 12/01/2023 by Alex Merchant MD at [facility] Right: Humerus [employer] 02.211.030 / / Screw 3.5mm 2.9mm 16mm T15 Ft Slf-Tap Implanted:Qty: 1 on 12/01/2023 by Alex Merchant MD at [facility] Right: Humerus [employer] 212.104 / / Screw 3.5mm 2.9mm 20mm T15 Ft Slf-Tap Implanted:Qty: 3 on 12/01/2023 by Alex Merchant MD at [facility] Right: Humerus [employer] 212.106 / / Screw 3.5mm 2.9mm 22mm T15 Ft Slf-Tap Implanted:Qty: 1 on 12/01/2023 by Alex Merchant MD at [facility] Right: Humerus [employer] 212.107 / / Screw 3.5mm 6mm 14mm Ft Hank Slf-Tap Sm Implanted:Qty: 1 on 12/01/2023 by Alex Merchant MD at [facility] Right: Humerus [employer] 204.814 / / Explanted Type Area Supervisor Paper Coating Device Identifier Shelf Expiration Date Model / Serial / Lot Screw 3.5mm 6mm 22mm 2.5mm Ft Slf-Tap Explanted:Qty: 2 on 12/01/2023 at [facility] Right: Humerus S[employer]s [facility] 204.822 / / Insurance MEDICARE COMMERCIAL GENERIC Advance Directives * Full Code (Latest Code Status on File) Date Activated Date Inactivated Comments 11/16/2023 2:44 PM 12/25/2023 5:14 PM Care Teams Correctional Supervising Cook Relationship Specialty Start Date End Date Daly Redmond DO [address] [id number] PCP - General 03/06/19
--- OUTSIDE RECORDS SUMMARY | 2025-04-01 12:03 | XMS_ITS | Clinical Summary ---
Author Organization [facility] Fernanda pineda [facility] Address [address] [place] [address] Care Team Providers Care Compensation And Hris Analyst Name Role Phone Unavailable Primary Care Provider Unavailabl e Allergies Active Allergy Reactions Criticality Noted Date Comments Penicillins Anaphylaxis High 04/10/2019 Medications albuterol sulfate HFA 90 mcg/actuation aerosol inhaler Take 2 Puffs by inhalation every 6 hours as needed for Shortness of Breath. Active tiZANidine (ZANAFLEX) 2 mg Capsule Take 2 mg by mouth 2 times daily. Active sennosides-docu sate sodium (Senna Plus) 8.6-50 mg Capsule Take by mouth 2 times daily. Active metoclopramide HCl (Reglan) 10 mg tablet Take 10 mg by mouth daily at bedtime. Active oxyCODONE (ROXICODONE) 5 mg tablet Take 2.5 mg by mouth every 6 hours as needed for Pain. Active mirtazapine (REMERON SolTab) 15 mg Tablet, Rapid Dissolve Place 15 mg inside cheek daily at bedtime. Active magnesium HYDROXIDE (MILK OF MAGNESIA) 400 mg/5 mL suspension Take 30 mL by mouth 1 time daily as needed for Constipation. Active ALPRAZolam (XANAX) 0.5 mg tablet Take 0.5 mg by mouth 3 times daily as needed for Anxiety. Active apixaban (Eliquis) 5 mg tablet Take 5 mg by mouth 2 times daily. 4 Active cholecalciferol , vitamin D3, 1,000 unit 1,000 Units by Feeding Tube route daily. 4 Active dicyclomine (BENTYL) 20 mg tablet Take 20 mg by mouth 4 times daily before meals and at bedtime. Active metoprolol tartrate (LOPRESSOR) 25 mg tablet Take 25 mg by mouth 2 times daily. 4 Active ipratropium-alb uteroL (Combivent Respimat) 20-100 mcg/actuation Mist Take 1 Puff by inhalation every 6 hours. Active melatonin 5 mg Tablet Take 5 mg by mouth nightly as needed for Insomnia. Active atorvastatin (LIPITOR) 40 mg tablet Take 10 mg by mouth daily at bedtime. 4 Active polyethylene glycol (MIRALAX) 17 gram Powder in Packet Take 17 Grams by mouth daily. Active Active Problems No known active problems Encounters Date Type Department Care Team Description 03/27/2025 External Device Data [facility] ABSTRACTION Provider, Abstract 03/26/2025 External Device Data [facility] ABSTRACTION Provider, Abstract 03/26/2025 External Device Data [facility] ABSTRACTION Provider, Abstract 02/18/2025 External Device Data ST[facility] ABSTRACTION Provider, Abstract 02/18/2025 External Device Data [facility] ABSTRACTION Provider, Abstract 02/18/2025 External Device Data ST[place] ABSTRACTION Provider, Abstract 02/18/2025 Orders Only [facility] Oncology and Hematology [facility] [place] [facility] [address] [place] [address] Alli Pena MD 02/17/2025 3:00 PM CDT Office Visit [facility] On[facility] [place] [facility] [address] [place] [address] Alli Pena MD Malignant neoplasm of upper lobe of left lung (CMS/HCC) (Primary Dx) from Last 3 Months Family History Medical History Relation Name Comments Diabetes Brother 1 Multiple Sclerosis Brother 1 Diabetes Brother 2 Heart Attack Brother 2 Kidney Disease Brother 2 SLE Daughter Stroke Father Hypertension Mother Kidney Cancer Mother Relation Name Status Comments Brother 1 Brother 2 Daughter Alive Father Mother Social History Tobacco Use Types Packs/Day Years Used Date Smoking Tobacco: Former Cigarettes 1 40 0 11/06/1983 - 11/06/2023 Smokeless Tobacco: Never Tobacco Cessation:Counseling Given: Not Answered Alcohol Use Standard Drinks/Week Comments Not Currently 0 (1 standard drink = 0.6 oz pur e alcohol) socially Comments Unknown Sex and Gender Information Value Date Recorded Sex Assigned at Not on file Legal Sex Female 2:41 PM CDT Gender Identity Not on file Sexual Orientation Not on file Last Filed Vital Signs Vital Sign Reading Time Taken Comments Blood Pressure 126/72 02/17/2025 2:53 PM CDT Pulse 58 02/17/2025 2:53 PM CDT Temperature 36.8 C (98.2 F) 02/17/2025 2:53 PM CDT Respiratory Rate 15 02/17/2025 2:53 PM CDT Oxygen Saturation 90% 02/17/2025 2:53 PM CDT Inhaled Oxygen Concentration - - Weight 86.2 kg (190 lb) 02/17/2025 2:53 PM CDT Height 170.2 cm (5' 7) 02/17/2025 2:53 PM CDT Body Mass Index 29.76 02/17/2025 2:53 PM CDT Plan of Treatment Upcoming Encounters Date Type Department Care Team (Late st Contact Info) Description 04/08/2025 4:30 PM CDT Telephone Check Up [facility] Oncology and Hematology - [place] [address] [facility] [address] [place] [address] Alli Pena MD [address] [place] [address] Health Maintenance Due Date Last Done Comments DIABETES ANNUAL FOOT EXAM 1975 DIABETES ANNUAL RETINAL EXAM 1975 DIABETES MICROALBUMIN ANNUAL SCREEN 1975 LDL CHOLESTEROL ANNUAL 1975 DTAP/TDAP/TD VACCINES (1 - Tdap) 1976 PNEUMOCOCCAL VACCINE 50+ YEARS (1 of 2 - PCV) 08/19/19 76 BREAST CANCER SCREENING 1997 COLORECTAL SCREENING 2002 Colorectal Cancer Screening 2002 FIT-DNA Q 3 years 2002 FIT/FOBT Q 1 year 2002 Flex Sig/CT Colonography Q 5 years 2002 ZOSTER VACCINE (1 of 2) 2007 RSV VACCINE (60+ or ) (1 - Risk 60-74 years 1-dose series) 2017 OSTEOPOROSIS SCREENING 2022 DIABETES HBA1C Q 6 MONTHS 05/17/2024 11/17/2023 INFLUENZA VACCINE (#1) 2024 Procedures Procedure Name Priority Date/Time Associated Diagnosis Comments COMPREHENSIVE METABOLIC PANEL Routine 02/17/2025 12:07 PM CDT from Last 3 Months Results * COMPREHENSIVE METABOLIC PANEL (02/17/2025 12:07 PM CDT) Blood us Alli Pena MD CHEMISTRY ORDERABLES Final Resu lt from Last 3 Months Insurance MEDICARE PART A AND B [facility]
[2025-04-01 13:01] LABS: Glucose Point of Care 126 mg/dl (65-105)
== END 2025-04-01 11:55 | disposition home or self-care (01) ==
PROVIDERS: PCP Internal Medicine Hematology & Oncology; Visit Provider Internal Medicine Hematology & Oncology
DX: C34.12 Malignant neoplasm of upper lobe, left bronchus or lung (principal); J43.9 Emphysema, unspecified
CPT/HCPCS: 78815; A9552

== ENCOUNTER 2025-05-05 08:48 | Inpatient (IN) | payer MEDICARE, MEDICAID, SELFPAY ==
[2025-05-05] VITALS (12 sets, daily range): BP systolic 101–147; BP diastolic 62–98; PULSE 56–80; RESP 16–20; TEMP 36.5–37.4; O2SAT 91–97; BMI 27.1
--- NOTE | ~2025-05-05 | XR_ITS ---
CHEST RADIOGRAPH CLINICAL HISTORY: sob, chest pain . COMPARISON: 05/05/2025 TECHNIQUE: Single portable view of the chest. FINDINGS The cardiomediastinal silhouette remains partially obscured. Redemonstration of a left-sided pleural effusion, moderate in size. Patchy opacification of the right lung base. The remainder of the right hemithorax and upper left are clear. IMPRESSION: Moderate left-sided pleural effusion, as detailed above. Reviewed, dictated and finalized at location A.
--- NOTE | ~2025-05-05 | XR_ITS ---
XR chest 2V Ordering provider: Perri Mi History: 69 years Female with . SOB . Comparison: February 01, 2013 FINDINGS: MEDIASTINUM: The cardiac silhouette is slightly enlarged. LUNGS: No pneumothorax. Bibasilar opacification more on the left side. Bilateral interstitial thicken ing suggestive of pulmonary edema versus pneumonitis. Left pleural effusion. OTHER: No free air under the diaphragm. Degenerative changes of the spine. Postoperative changes in the right humerus. IMPRESSION: Bilateral basal pneumonia. Left pleural effusion. Underlying pulmonary edema is highly suggestive. Reviewed, dictated and finalized at location A.
--- NOTE | 2025-05-05 08:57 | ECG_ITS ---
Test Date: 2025-05-05 08:55:44 Measurements Intervals [place]wey Rate: 74 P: -53 TX: 131 QRS: -13 QRSD: 112 T: -46 QT: 428 QTc: 476 Interpretive Statements SINUS RHYTHM WITH OCCASIONAL VENTRICULAR PREMATURE COMPLEXES WITH OCCASIONAL SUPRAVENTRICULAR PREMATURE COMPLEXES INCOMPLETE RIGHT BUNDLE BRANCH BLOCK ST DEVIATION AND MODERATE T-WAVE ABNORMALITY, CONSIDER ANTERIOR ISCHEMIA BASELINE ARTIFACT- I, II, AVR, AVF, V1, V3-V6 ABNORMAL ECG No previous ECG available for comparison Electronically Signed On 05-05-2025 09:55:11 CDT by Jay Fuchs D.O.
[2025-05-05 09:22] LABS: Hematocrit 39.2 % (37.0-47.0); Hemoglobin 11.8 g/dL (12.0-15.0); Immature Granulocyte Percent A 2.3 % (0-0.5); Lymphocytes Absolute Auto 2.14 K/mm3 (0.9-3.2); Mean Corpuscular HGB Conc 30.1 g/dl (32-36); Mean Corpuscular Hemoglobin 29.3 pg (26-34); Mean Corpuscular Volume 97.3 fl (80-100); Nucleated Red Blood Cells Absolute Auto 0.000 K/mm3 (0.0-0.012); Nucleated Red Blood Cells Perc 0.0 % (0.0-0.2); Platelet Count Result 310 k/mm3 (150-375); Red Blood Count 4.03 M/mm3 (4.2-5.4); White Blood Count 12.2 K/mm3 (4.5-10.0)
[2025-05-05 09:40] LABS: Alanine Aminotransferase 22 U/L (6-35); Albumin Level 3.2 g/dL (3.5-5.1); Alkaline Phosphatase 106 U/L (38-126); Anion Gap 6 mmol/L (4-12); Aspartate Amino Transferase 39 U/L (14-36); Bilirubin,Total 0.3 mg/dL (0.2-1.3); Blood Urea Nitrogen 8 mg/dL (7-17); Calcium 9.4 mg/dL (8.4-10.2); Carbon Dioxide 37 mmol/L (22-30); Chloride 99 mmol/L (98-107); Estimated CRCL calculation 84 ml/min; Estimated Glomerular Filt Rate > 60; Glucose 139 mg/dL (65-110); Potassium 3.2 mmol/L (3.4-5.0); Sodium 142 mmol/L (137-145); Total Protein 7.5 g/dL (6.3-8.2)
--- NOTE | 2025-05-05 10:55 | ED_ITS ---
HPI - SOB/Dyspnea General Chief Complaint: Shortness of Breath/Dyspnea Stated Complaint: shortness of breath, dull cp Time Seen by Provider: 05/05/25 10:37 History of Present Illness HPI Narrative: Pt presents with SOB worsening over last 3 days. Pt is on 2l per concentrator and this was apparently not working and her sats dropped into 80's. Pt is now at 96% on 2L nc. Pt denies fever or CP. Related Data Allergies Allergy/AdvReac Type Severity Reaction Status Date / Time Penicillins Allergy Severe Anaphylaxis Verified 05/05/25 09:00 Review of Systems 2 Review of Systems: All systems reviewed & are unremarkable except as noted in HPI and below PMFSH Past Medical History Medical History COPD (chronic obstructive pulmonary disease) Atrial fibrillation CVA (cerebral vascular accident) Social History Social History Smoking status: Former smoker Tobacco type: cigarettes Smoking end date: 11/10/23 Alcohol intake: former Substance use: never Do You Feel Safe in your Home?: Yes Lack of Transportation: No Lack of Food: Never True Current Housing: I Have Housing Concerned About Future Housing: No Difficulty Paying Gas/Electric Bills: No Difficulty Paying for Meds: No Currently Unemployed: No Education: Decline to Answer Difficulty w/ Childcare or Family Care: No Spiritual care concerns: No Exam 2 Const: General: healthy appearing and no acute distress Nutritional Appearance: well nourished Orientation/consciousness: patient oriented x3 Chest: Chest palpation & inspection: normal inspection of the chest Resp: Effort & Inspection: normal respiratory effort Auscultation: crackles Cardio: Rate: regular rate Rhythm: regular rhythm GI: GI Palp: Yes Soft to palpation and Yes Tenderness to palpation present (GI) Auscultation: normal bowel sounds Skin: General skin exam: normal color Rashes: no rashes Wounds: no wounds Neuro: General: patient oriented x3, moves all extremities, no meningeal signs and no focal motor deficits Speech: normal speech Extrem: General: normal to inspection and no clubbing, cyanosis or edema Psych: Mental Status: mental status grossly normal Affect: normal affect Attitude: cooperative Course Vital Signs Vital signs: Vital Signs Temperature 98.0 F 05/05/25 08:51 Pulse Rate 61 05/05/25 08:51 Respiratory Rate 20 05/05/25 08:51 Pulse Oximetry 95 05/05/25 08:51 Oxygen Delivery Nasal Cannula 05/05/25 08:51 Oxygen Flow Rate 2 05/05/25 08:51 Temperature 99.3 F 05/05/25 15:34 Pulse Rate 76 05/05/25 16:00 Respiratory Rate 20 05/05/25 15:34 Blood Pressure 147/98 H 05/05/25 15:34 Pulse Oximetry 91 05/05/25 15:34 Oxygen Delivery Nasal Cannula 05/05/25 14:33 Oxygen Flow Rate 2 05/05/25 14:33 MDM - SOB/Dyspnea MDM Narrative Medical decision making narrative: Pt presents with SOB getting worse. sats ok now on 2L. cxr looks like chf and bnp elevated. will give dose of lasix. discussed with Sharda Osborne and agrees to admit Differential Diagnosis Differential diagnosis: Likely acute exacerbation of chronic obstructive airways disease, congestive heart failure, community acquired pneumonia, asthma with exacerbation and pulmonary embolism Lab Data 05/05/25 09:07 05/05/25 09:07 Labs: Lab Results 05/05/25 Range/Units 09:07 WBC 12.2 H (4.5-10.0) K/mm3 RBC 4.03 L (4.2-5.4) M/mm3 Hgb 11.8 L (12.0-15.0) g/dL Hct 39.2 (37.0-47.0) % MCV 97.3 (80-100) fl MCH 29.3 (26-34) pg MCHC 30.1 L (32-36) g/dl RDW 12.8 (11.5-14.5) % Plt Count 310 (150-375) k/mm3 MPV 12.1 H (7.4-10.4) fl Immature Gran % (Auto) 2.3 H (0-0.5) % Neut % (Auto) 67.6 (45.5-73.1) % Lymph % (Auto) 17.6 L (18.3-44.2) % [place] % (Auto) 7.3 (2.6-8.5) % Eos % (Auto) 4.4 (0-4.4) % Baso % (Auto) 0.8 (0.2-1.2) % Lymph # (Auto) 2.14 (0.9-3.2) K/mm3 [place] # (Auto) 0.9 H (0.1-0.6) K/mm3 Eos # (Auto) 0.5 H (0-0.3) K/mm3 Baso # (Auto) 0.1 (0.0-0.1) K/mm3 Abs Immat Gran (auto) 0.28 H (0.00-0.031) K/mm3 Absolute Neuts (auto) 8.2 H (1.3-6.7) K/mm3 Absolute Nucleated RBC 0.000 (0.0-0.012) K/mm3 Nucleated RBC % 0.0 (0.0-0.2) % Sodium 142 (137-145) mmol/L Potassium 3.2 L (3.4-5.0) mmol/L Chloride 99 (98-107) mmol/L Carbon Dioxide 37 H (22-30) mmol/L Anion Gap 6 (4-12) mmol/L BUN 8 D (7-17) mg/dL Creatinine 0.53 L (0.7-1.0) mg/dL Estim Creat Clear Calc 84 ml/min Estimated GFR > 60 (59 - ) Glucose 139 H (65-110) mg/dL Calcium 9.4 (8.4-10.2) mg/dL Total Bilirubin 0.3 (0.2-1.3) mg/dL AST 39 H (14-36) U/L ALT 22 (6-35) U/L Alkaline Phosphatase 106 (38-126) U/L Troponin I < 0.012 (0.000-0.034) ng/mL NT-Pro-B Natriuret Pep 716 H (19.9-100) pg/mL Total Protein 7.5 (6.3-8.2) g/dL Albumin 3.2 L (3.5-5.1) g/dL Discharge Plan Discharge Clinical Impression: Congestive heart failure Patient Disposition: Still a Patient Condition: Stable
[2025-05-05] MEDS: FUROSEMIDE INJ 40 MG/4 ML VIAL IV PUSH (11:38)
--- OUTSIDE RECORDS SUMMARY | 2025-05-05 11:43 | XMS_ITS | Clinical Summary ---
Author Organization [facility] Fernanda Zarate Address [address] [place] [address] Care Team Providers Care Hydraulic Press Operator Name Role Phone Unavailable Primary Care Provider [...] Encounters Date Type Department Care Team Description 04/07/2025 4:30 PM CDT Telephone Check Up [facility] Hematology [facility] [address] [place] [address] Alli Pena MD Malignant neoplasm of upper lobe of left lung (CMS/HCC) (Primary Dx) 04/04/2025 Orders Only [facility] Oncology [facility] Hematology [facility] [address] [place] [address] Alli Pena MD 04/02/2025 Abstract [facility] Oncology [facility] [address] [place] [address] Alli Pena MD 03/27/2025 External Device Data ST[facility] ABSTRACTION Provider, Abstract 03/26/2025 External Device Data [facility] ABSTRACTION Provider, Abstract 03/26/2025 External Device Data [facility] ABSTRACTION Provider, Abstract 02/18/2025 External Device Data [facility] ABSTRACTION Provider, Abstract 02/18/2025 External Device Data ST[facility] ABSTRACTION Provider, Abstract 02/18/2025 External Device Data STL ABSTRACTION Provider, Abstract 02/18/2025 Orders Only [facility] Oncology and Hematology [facility] [address] [place] [address] Alli Pena MD 02/17/2025 3:00 PM CDT Office Visit [facility] Oncology and Hematology [facility] [address] [place] [address] Alli Pena MD Malignant neoplasm of upper [...] Care Team (Late st Contact Info) Description 07/21/2025 10:00 AM CDT Office Visit [facility] Oncology and Hematology [facility] [address] [place] [address] Alli Pena MD [address] [place] [address] Health Maintenance Due Date Last [...] Procedure Name Priority Date/Time Associated Diagnosis Comments GLUCOSE LEVEL Routine 04/01/2025 3:41 PM CDT COMPREHENSIVE METABOLIC PANEL Routine 02/17/2025 12:07 PM CDT from Last 3 Months Results * GLUCOSE LEVEL (04/01/2025 3:41 PM CDT) Blood Alli Pena MD CHEMISTRY ORDERABLES Final Resu lt * COMPREHENSIVE METABOLIC PANEL (02/17/2025 12:07 PM CDT) Blood Alli Pena MD CHEMISTRY ORDERABLES Final Resu lt from Last 3 Months Insurance MEDICARE PART A AND B [facility] [place]
--- OUTSIDE RECORDS SUMMARY | 2025-05-05 11:43 | XMS_ITS | Clinical Summary ---
Author Organization [facility] Address [address] [place] [address] Care Team Providers Care Chief School Finance Officer Name Role Phone Dayl Redmond DO Primary Care Provider [phone] Source Comments [facility],non-owned Affiliates and Associated Physician Practices is amultiple site organization consisting of ambulatory clinics and hospital sitesin [place], [place], [place] and [place]. This disclosure is being madepursuant to the Care Everywhere program and may not contain all information available regarding this patient. Last updated 18.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 Gender Identity Not on file Sexual [...] Oxygen Concentration 32% 12/14/2023 5 :48 PM ELECTRICAL INSTALLATION SUPERVISOR Weight 78.5 kg (173 lb) 02/29/2024 10:06 AM CDT Height 167.6 cm (5' 6) 11/17/2023 8:00 AM ELECTRICAL INSTALLATION SUPERVISOR Body Mass Index 27.92 11/17/2023 8:00 AM ELECTRICAL INSTALLATION SUPERVISOR Plan of Treatment Health Maintenance Due Date [...] this topic Medical Devices Implanted Type Area Document Management Consultant Device Identifier Shelf Expiration Date Model / Serial / Lot 9 Holes 153mm Right Extra Long Implanted:Qty: 1 on 12/01/2023 by Alex Merchant MD at [facility] Right: Humerus [id number] S / / Screw 3.5mm 6mm 24mm 2.5mm Ft Slf-Tap Implanted:Qty: 2 on 12/01/2023 by Alex Merchant MD at [facility] Right: Humerus [employer] [id number] / / Plate 1/3 Tblr [id number] Ss 2.7/3.5mm Implanted:Qty: 1 on 12/01/2023 by Alex Merchant MD at [facility] Right: Humerus [employer] [id number] / / Screw 2.7mm 24mm T8 Slf-Tap Lck Va Strdr Implanted:Qty: 1 on 12/01/2023 by Alex Merchant MD at [facility] Right: Humerus [employer] [id number] / / Screw 2.7mm 26mm T8 Slf-Tap Lck Va Strdr Implanted:Qty: 1 on 12/01/2023 by Alex Merchant MD at [facility] Right: Humerus [employer] [id number] / / Screw 2.7mm 30mm T8 Slf-Tap Lck Va Strdr Implanted:Qty: 1 on 12/01/2023 by Alex Merchant MD at [facility] Right: Humerus [employer] [id number] / / Screw 3.5mm 2.9mm 16mm T15 Ft Slf-Tap Implanted:Qty: 1 on 12/01/2023 by Alex Merchant MD at [facility] Right: Humerus [employer] [id number] / / Screw 3.5mm 2.9mm 20mm T15 Ft Slf-Tap Implanted:Qty: 3 on 12/01/2023 by Alex Merchant MD at [facility] Right: Humerus [employer] 212.106 / / Screw 3.5mm 2.9mm 22mm T15 Ft Slf-Tap Implanted:Qty: 1 on 12/01/2023 by Alex Merchant MD at [facility] Right: Humerus [employer] 212.107 / / Screw 3.5mm 6mm 14mm Ft Hank Slf-Tap Sm Implanted:Qty: 1 on 12/01/2023 by Alex Merchant MD at [facility] Right: Humerus [employer] [id number] / / Explanted Type Area Document Management Consultant Device Identifier Shelf Expiration Date Model / Serial / Lot Screw 3.5mm 6mm 22mm 2.5mm Ft Slf-Tap Explanted:Qty: 2 on 12/01/2023 at [facility] Right: Humerus [employer] [facility] [id number] / / Insurance MEDICARE COMMERCIAL GENERIC Advance Directives * Full Code (Latest Code Status on File) Date Activated Date Inactivated Comments 11/16/2023 2:44 PM 12/25/2023 5:14 PM Care Teams Chief School Finance Officer Relationship Specialty Start Date End Date Daly Redmond DO [address] [place] [address] PCP - General 03/06/19
--- OUTSIDE RECORDS SUMMARY | 2025-05-05 11:43 | XMS_ITS ---
Author Organization Pending sale to [facility] Address [address] [place] [address] Care Team Providers Care Dining Room Manager Name Role Phone Cris, Cari Primary Care Provider REASON FOR VISIT 2 Month Psych F/U & Med Refill Medications Medication SIG (Take, Route, Frequency, Duration) Notes Start Date End Date Status Ambien CR 6.25 MG 1 tablet at bedtime as needed Orally Once a day as needed for sleep; Duration: 30 days Active Xanax 1 MG 1 tablet Orally up t o Twice a day as needed for SEVERE anxiety; Duration: 30 days 09/21/2023 Active Zolpidem Tartrate ER 6.25 mg TAKE 1 TABLET BY MOUTH AT BEDTIME NEEDED FOR SLEEP; Duration: 30 11/06/2023 Active Remeron 30 MG 1 tablet at bedtime Orally Once a day; Duration: 30 days Active Mirtazapine 30 mg TAKE 1 TABLET BY RAJIV TH AT BEDTIME; Duration: 30 Active Dicyclomine HCl 20 MG 1 tablet Orally Th ree times a day; Duration: 30 day(s) Active Full Kit Nebulizer Set - as directed neb ulizer machine with full kit three times daily; Duration: 10 02/27/2019 Active Albuterol Sulfate 1.25 MG/3ML 3 ml as needed Inhalation every 8 hrs; Duration: 10 02/27/2019 Active ALPRAZolam 1 mg TAKE 1 TABLET BY RAJIV TH UP TO TWICE A DAY NEEDED FOR SEVERE ANXIETY FOR 30 DAYS; Duration: 30 09/07/2023 Active Flonase 50 MCG/DOSE 1 spray in each nost ril Nasally Once a day; Duration: 30 days 01/31/2018 Active Albuterol Sulfate HFA 108 (90 Base) MCG/ACT 2 puffs as needed Inhalation every 4-6 hrs Active Benadryl Allergy 25 MG 1 tablet at bedti me as needed Orally Once a day Active Encounters Encounter Location Date Provider Diagnosis [address] [address] 11/21/2023 Doris Lynch Plan Of Treatment No Information Progress Notes * Linda RAMIREZDOB:1955 (69 yo F)Acc No.[id number]:11/21/2023 UNLOCKED PROGRESS NOTE Patient: Linda MCLAUGHLIN Provider: Roslyn Lynch, MSN, RIVET HEATER-BC, PMHNP-BC :1955 A ge:68 Y S ex:Female Date:11/21/2023 Address:[address] [place], [place] [id number] Subjective: * Chief Complaints: * 1 . [...] * Electronic signature of Doris Lynch , [id number] on 05/05/2025 at 11:42 AM CDT Sign off status: Pending * Provider: Roslyn Lynch, MSN, RIVET HEATER-BC, PMHNP-BC Date: 0 11/21/2023 Generated for Cheryle hernandez/Yosef/Parish on: 0 05/05/2025 11:42 AM CDT
--- OUTSIDE RECORDS SUMMARY | 2025-05-05 11:43 | XMS_ITS | Patient Health Record ---
Author Organization [facility] Address [address] [place] [address] Care Team Providers Care Bulkhead Carpenter Name Role Phone Cris Doris Primary Care Provider [phone] Allergies Allergen (clinical drug ingredient) Drug/Non [...] full kit three times daily; Duration: 10 days 02/27/2019 Active Albuterol Sulfate 1.25 MG/3ML 3 ml as needed Inhalation every 8 hrs; Duration: 10 02/27/2019 Active Ambien CR 6.25 MG 1 tablet at bedtime as needed Orally Once a day as needed for sleep; Duration: 30 days Active Xanax 1 MG 1 tablet Orally up t o Twice a day as needed for SEVERE anxiety; Duration: 30 days 09/21/2023 Active Albuterol Sulfate HFA 108 (90 Base) MCG/ACT 2 puffs as needed Inhalation every 4-6 hrs Active Benadryl Allergy 25 MG 1 tablet at bedti me as needed Orally Once a day Active Zolpidem Tartrate ER 6.25 mg TAKE 1 TABLET BY MOUTH AT BEDTIME NEEDED FOR SLEEP; Duration: 11/06/2023 Active ALPRAZolam 1 mg TAKE 1 TABLET BY RAJIV TH UP TO TWICE A DAY NEEDED FOR SEVERE ANXIETY FOR 30 DAYS; Duration: 30 09/07/2023 Active Flonase 50 MCG/DOSE 1 spray in each nost ril Nasally Once a day; Duration: 30 days 01/31/2018 Active Remeron 30 MG 1 tablet at bedtime Orally Once a day; Duration: 30 days Active Mirtazapine 30 mg TAKE 1 TABLET BY RAJIV TH AT BEDTIME; Duration: 30 Active Immunizations Vaccine Route Administration Date Status Comme nts Influenza, injectable, quadrivalent, preservative free Unknown 08/06/2018 Administered pt states Gwen Social History Tobacco Use: Social History Observation Description Date Details (start date - stop date) Current Smoker NA - NA Dont use, Tobacco Use/Smoking Question Answer Notes Are you a current smoker How many cigarettes a day do you smoke? 6-10 Section Notes: Family Cvcgupy-sybfdw-hfvgpqoafs, brother had MS and depression and addiction Occupational History-accounting Eduation Oddarfz-rxhrdax-Knjqsudg degree Family Actiufw-vpwkjr-ebdtbdnvug, brother had MS and depression and addiction Occupational History-accounting Eduation Scqetcm-thdimsa-Tfvyrzlu degree Family Gkrvott-vsqxja-svenntxjey, brother had MS and depression and addiction Occupational History-accounting Eduation Budsvmz-rnpuluh-Nsjnkwkn degree Family Bjvqxui-sixepw-puqhjmrrsu, brother had MS and depression and addiction Occupational History-accounting Eduation Owbqxym-nvjwmmr-Xibaszol degree Family Jepdkrp-mibajv-resngoeoyx, brother had MS and depression and addiction Occupational History-accounting Eduation Qjrtpzs-nvktrbk-Bqnxckec degree Family Sdxbqte-velmcx-vaehlabits, brother had MS and depression and addiction Occupational History-accounting Eduation Felkuuq-zfrlcvw-Ojaqzchf degree Family Pbrogkk-keupnf-vsvidazwoe, brother had MS and depression and addiction Occupational History-accounting Eduation Bbfhigt-mshwpva-Dphsdbsk degree Family Dcxwamk-buutfb-sxjditjvpp, brother had MS and depression and addiction Occupational History-accounting Eduation Jgticsn-dymxefg-Irduipwg degree Family Zrkalbb-knlstz-btzuuyubbj, brother had MS and depression and addiction Occupational History-accounting Eduation Vegwwjl-wawyubk-Trnddxgd degree Family Bbbfrwk-ekvgoi-vpmcpiubmp, brother had MS and depression and addiction Occupational History-accounting Eduation Wjivlck-acnioay-Bpefvydt degree Family Rtmcezc-tcbsml-dbdqfrqxcn, brother had MS and depression and addiction Occupational History-accounting Eduation Sargumw-rhbdvct-Gltoevgk degree Family Dpbpinr-haolby-sbfpgcsuvn, brother had MS and depression and addiction Occupational History-accounting Eduation Zeutnie-odmcqmy-Jwcedwbk degree Family Wwunaku-wapgzt-kbpzgvuvnf, brother had MS and depression and addiction Occupational History-accounting Eduation Yqggsqe-sdsmuoy-Jgjatmka degree Family Dzqvvpc-cywaqi-gacewwjksc, brother had MS and depression and addiction Occupational History-accounting Eduation Qzutkto-sdqlbcv-Axwkjgfr degree Family Renppee-qbyupt-rlhcqvthgk, brother had MS and depression and addiction Occupational History-accounting Eduation Kmpyyob-hcitmav-Rpqmtmhm degree Family Syjxxhr-lnqwbd-vqxqapdsnq, brother had MS and depression and addiction Occupational History-accounting Eduation Kfngmaa-ucidouo-Dpaoitcg degree Family Rumkwld-gnqkkh-uetiisxjzx, brother had MS and depression and addiction Occupational History-accounting Eduation Qfhtjeo-fsjroes-Bpqraser degree Family Kmvhnqs-lqbdwb-wxujxrzpyg, brother had MS and depression and addiction Occupational History-accounting Eduation Ezhejov-ojhykaa-Vijkboib degree Family Bsywqhq-dpvrfl-vovbkjwwhg, brother had MS and depression and addiction Occupational History-accounting Eduation Jqlfdda-tvltdwo-Qsldxxlc degree Family Prxwbez-rdsbqb-zvwvroedon, brother had MS and depression and addiction Occupational History-accounting Eduation Nhgxngh-qfwxteo-Ylqmkrxd degree Family Kxpvdwf-awomyy-nifjwgjqdd, brother had MS and depression and addiction Occupational History-accounting Eduation Ztnovec-gjleswg-Iuvhxakn degree Family Shaiqfr-vbsuqr-lpjnzupdxn, brother had MS and depression and addiction Occupational History-accounting Eduation Fybjrmo-kxnwgcn-Mgsezuzo degree Family Azaeayl-crcdzx-dutynmbxsy, brother had MS and depression and addiction Occupational History-accounting Eduation Yqljhgx-bcpomam-Yjpvsmao degree Family Kspxfrm-xuioaq-cpiusvrcjg, brother had MS and depression and addiction Occupational History-accounting Eduation Fschylu-nbycdqv-Qxiuhwzp degree Family Ahpapnl-jekguz-qpkgiwopqi, brother had MS and depression and addiction Occupational History-accounting Eduation Evbxzal-zzesodt-Vtdldykb degree Family Jhwlimy-hgdlgs-kbwaqvjwsw, brother had MS and depression and addiction Occupational History-accounting Eduation Hhftoct-txkkbow-Apdqmkzc degree Family Dtbxyuw-xwosln-lrdmkvgfrr, brother had MS and depression and addiction Occupational History-accounting Eduation Bgnveue-rqoyxuj-Rmmcafyo degree Family Bspugtr-xcauxq-zxbpufggef, brother had MS and depression and addiction Occupational History-accounting Eduation Zogwqlp-ntnxalo-Tnretcxa degree Family Wydpbsn-jcwjes-vkbkixhkaw, brother had MS and depression and addiction Occupational History-accounting Eduation Ewavksh-yxqxgxa-Apjwdvjl degree Family Mnifsco-kfalzd-oszocqhitm, brother had MS and depression and addiction Occupational History-accounting Eduation Zjzmkfj-fbuleue-Oltkzqfn degree Family Zfomrno-clndwi-eyryxfxkmv, brother had MS and depression and addiction Occupational History-accounting Eduation Txtdegq-msxrvpq-Llcmlmmr degree PRESCRIPTION # FILLED WRITTEN DRUG LABEL QTY DAYS STRENGTH MEDD PRESCRIBER PHARMACY REFILL NO. REFILLS STATE 01/10/2023 12/13/2022 ALPRAZolam 38.0 30 1 MG NA PacKaren soliman ([facility]) - [id number] [place] NA 1 [place] 1 [id number] 12/14/2022 12/13/2022 ALPRAZolam 38.0 30 1 MG NA PacKaren soliman ([facility]) - [id number] [place], [place] NA 1 [place] 1 [id number] 11/18/2022 10/20/2022 ALPRAZolam 38.0 30 1 MG NA PacKaren soliman ([facility]) - [id number] Family Bwtqffy-zkcvzd-fpmvfjbdux, brother had MS and depression and addiction Occupational History-accounting Eduation Gvlemda-vxlsyhp-Trzctrwl degree PRESCRIPTION # FILLED WRITTEN DRUG LABEL QTY DAYS STRENGTH MEDD PRESCRIBER PHARMACY REFILL NO. REFILLS STATE 02/01/2023 01/19/2023 ALPRAZolam 34.0 30 1 MG NA Doris Lynch [facility] - [id number] [place], [place] NA 1 [place] 1 [id number] 01/10/2023 12/13/2022 ALPRAZolam 38.0 30 1 MG NA PacKaren soliman ([facility]) - [id number] [place] PRESCRIPTION # FILLED WRITTEN DRUG LABEL QTY DAYS STRENGTH MME PRESCRIBER PHARMACY REFILL NO. REFILLS STATE 03/23/2023 02/23/2023 ALPRAZolam 34.0 30 1 MG NA Doris Lynch Certified [facility] Education Specialist - [id number] [place], [place] NA 1 [place] 1 [id number] 03/23/2023 03/23/2023 Zolpidem Tartrate 30.0 30 6.25 MG NA Cris Doris L Certified Health Education Specialist - [id number] [place], [place] NA 0 [place] 1 [id number] 02/24/2023 02/23/2023 Zolpidem Tartrate 30.0 30 6.25 MG NA Cris Doris L Certified Health Education Specialist - [id number] [place], [place] NA 0 [place] 1 [id number] 02/23/2023 02/23/2023 ALPRAZolam 34.0 30 1 MG NA Ck Lynchi L Certified Health Education Specialist - [id number] PRESCRIPTION # FILLED WRITTEN DRUG LABEL QTY DAYS STRENGTH MME PRESCRIBER PHARMACY REFILL NO. REFILLS STATE 05/18/2023 05/18/2023 ALPRAZolam 34.0 30 1 MG NA Cris Doris Billingsley Certified Health Education Specialist - [id number] [place], [place] NA 0 [place] 1 [id number] 05/18/2023 05/18/2023 Zolpidem Tartrate 30.0 30 6.25 MG NA Cris Doris L Certified Health Education Specialist - [id number] [place], [place] NA 0 [place] 1 [id number] 04/20/2023 04/20/2023 ALPRAZolam 34.0 30 1 MG NA CrisCkrocio Billingsley Certified Health Education Specialist - [id number] [place], [place] NA 0 [place] 1 [id number] 04/20/2023 04/20/2023 Zolpidem Tartrate 30.0 30 6.25 MG NA CrisCki L Certified Health Education Specialist - [id number] PRESCRIPTION # FILLED WRITTEN DRUG LABEL QTY DAYS STRENGTH MME PRESCRIBER PHARMACY REFILL NO. REFILLS STATE 07/13/2023 07/13/2023 ALPRAZolam 34.0 30 1 MG NA Cris Doris Billingsley Certified Health Education Specialist - [id number] [place], [place] NA 0 [place] 1 [id number] 07/13/2023 07/13/2023 Zolpidem Tartrate 30.0 30 6.25 MG NA Doris Lynch Certified Health Education Specialist - [id number] [place], [place] NA 0 [place] 1 [id number] 06/15/2023 06/15/2023 ALPRAZolam 34.0 30 1 MG NA Doris Lynch Certified Health Education Specialist - [id number] [place] PRESCRIPTION # FILLED WRITTEN DRUG LABEL QTY DAYS STRENGTH MME PRESCRIBER PHARMACY REFILL NO. REFILLS STATE 09/07/2023 09/07/2023 Zolpidem Tartrate 30.0 30 6.25 MG NA Doris Lynch Certified Health Education Specialist - [id number] [place], [place] NA 0 [place] 1 [id number] 09/07/2023 09/07/2023 ALPRAZolam 34.0 30 1 MG NA Doris Lynch Certified Health Education Specialist - [id number] [place], [place] NA 0 [place] 1 [id number] 08/10/2023 08/10/2023 ALPRAZolam 34.0 30 1 MG NA Doris Lynch [facility] - [id number] [place] Family Bsyahjg-ebjioo-huuxoajxeg, brother had MS and depression and addiction Occupational History-accounting Eduation Cpeyjvd-ptsgcct-Sowyurvg degree Problems Problem Type SNOMED Code ICD Code Onset Dates Problem Status W/U Status Risk Notes Problem Tobacco user (382419301) Nicotine dependence, unspecified, uncomplicated (F17.200) Active confirmed Problem Chronic pain (18729264) Other chronic pain (G89.29) Active confirmed Problem Chronic bronchitis (10605823) Unspecified chronic bronchitis (J42) Active confirmed Problem Irritable bowel syndrome with diarrhea (522773524) Irritable bowel syndrome with diarrhea (K58.0) Active confirmed Problem Tobacco dependence (47313548) Tobacco dependence (F17.200) Active confirmed Problem Anxiety (39389954) Anxiety (F41.9) Active confi rmed Problem Vitamin D deficiency (01160850) Vitamin D deficiency (E55.9) Active confirmed Problem Obese class I (finding) (333734107246804) Obesity (BMI 30.0-34.9) (E66.9) Active confirmed Problem Cancer (520738653) Cancer (C80.1) Active confir med Problem Insomnia (608908387) Insomnia, unspecified type (G47.00) Active confirmed Problem Hyperlipidaemia (39966998) Hyperlipidemia, unspecified hyperlipidemia type (E78.5) Active confirmed Problem COPD - Chronic obstructive pulmonary disease (33475266) Chronic obstructive pulmonary disease, unspecified COPD type (J44.9) Active confirmed Problem Allergic rhinitis caused by pollen (24752566) Seasonal allergic rhinitis due to pollen (J30.1) Active confirmed Problem Pulmonary emphysema (76222241) Pulmonary emphysema, unspecified emphysema type (J43.9) 03/06/20 19 Active confirmed Problem Exposure to streptococcal pharyngitis (event) (7526665849270) Strep throat exposure (Z20.818) Active confirmed Problem Acute exacerbation of chronic obstructive airways disease (130105143) Chronic obstructive pulmonary disease with acute exacerbation (J44.1) Active confirmed Problem Solitary pulmonary nodule (225458514) Pulmonary nodule seen on imaging study (R91.1) Active confirmed Plan Of Treatment Future Test Test Name Order Date Vitamin D, 25-Hydroxy* 12/18/2018 Lipid Panel w/ Chol/HDL Ratio 12/18/2018 Insurance Providers Payer Name Payer Address Payer Phone Subscriber Number Group Number Insured Name Patient Relationship to Insured Coverage Start Date Coverage End Date [employer] [address] [place] [address] [id number] Linda Gray Self - patient is the insured 4 2 MEDICARE PART A [address] [place] [address] [id number] Linda Gray Self - patient is the insured 2 MEDICAID [address] [place] [address] [id number] Linda Gray Self - patient is the insured 3 [employer] [address] [place] [address] [id number] Linda Gray Self - patient is the [...]
--- OUTSIDE RECORDS SUMMARY | 2025-05-05 11:43 | XMS_ITS | Continuity of Care Document ---
Author Organization [facility] Address [address] [place] [address] Phone Care Team Providers Care Medical Support Assistant Name Role Phone Thompson OD, Ortiz Unavailable Unavailable Advance Directives Directive Yes / No Effective Date File Name No Information Encounters Encounter Description Practice Location Reason(s) For Visit Diagnoses Date Provider Providers Copied on Encounter [facility], [address], [place], [place], [id number], [place] tel:[phone] [facility] No Information Nov-0 1-200 1 Thompson OD Ortiz. [address] , [address], [place], [address], [place]. tel:[phone] Family History Family Member Type Diagnosis Age At Onset No Information Payers Payer name Insurance type Covered green party ID Authoriza tion(s) Medicaid [facility] [id number] Social History Type Description Quantity Date Captured [...]
--- OUTSIDE RECORDS SUMMARY | 2025-05-05 11:43 | XMS_ITS | Encounter Summary ---
Author Organization [facility] Address [address] [place], [place] [address] [address] Care Team Providers Care Forest Botany Instructor Name Role Phone Daly Redmond DO Primary Care Provider [phone] Encounter Details Date Type Department Care Team (Late st Contact Info) Description 04/19/2019 Telephone [facility] [address] [place] [phone] Sowmya Kellogg RN Social History Tobacco Use Types Packs/Day Years Used Date Smoking Tobacco: Every Day Cigarettes 1 45 Smokeless Tobacco: Never Alcohol Use Standard Drinks/Week Comments Yes 1 (1 standard drink = 0.6 oz pur e alcohol) Comments Unknown Sex and Gender Information Value Date Recorded Sex Assigned at Not on file Legal Sex Female 5:50 AM WIRELESS NETWORK ENGINEER Gender Identity Not on file Sexual Orientation [...] Under Investigation 11/21/2023 11/21/2023 11/21/2023 12:30 PM WIRELESS NETWORK ENGINEER documented as of this encounter Care Teams Forest Botany Instructor Relationship Specialty Start Date End Date Daly Redmond DO [address] [place] [address] PCP - General 03/06/19 documented as of this encounter
[2025-05-05 12:12] LABS: NT Pro B Type Natriuretic Pept 716 pg/mL (19.9-100)
[2025-05-05 12:50] LABS: Troponin I < 0.012 ng/mL (0.000-0.034)
--- NOTE | 2025-05-05 13:01 | PM.IMHP ---
H&P: HPI History of Present Illness Date/Time: 05/05/25 13:01 Chief Complaint: Shortness of Breath Narrative: 69 y/o F with PMH of CVA, atrial fibrillation, and COPD on chronic O2 presents here with shortness of breath. The patient presents here from [facility] via EMS for further evaluation of shortness breath. The patient has a history of COPD, on chronic home O2 - 2L NC. Patient did with the above Lue tone through our wound through probably and was 84% on room air. She was placed back on her supplemental O2 and O2 sat increased to 95%. She is additionally on antibiotics for treatment of pneumonia. Shortness of breath is accompanied by a dry cough for the past week and chest pain with cough for the past week. Denies fever, chills, body aches, nausea, vomiting, diarrhea, or fatigue. She is unsure if she has a history of heart failure, however family reports she has a history of fluid in her lungs. Patient currently denies a history but is a difficult historian - non-conversant by A&O x4. She also denies weight gain, lower extremity edema, or abdominal swelling. Initial VS at presentation: 98? F, HR 61, R 20, 114/82, and 95% on 2L nasal cannula. ED workup showed: WBC 12.2, hemoglobin 11.8, potassium 3.2, creatinine 0.53 and GFR >60, initial troponin negative, BNP 716. Review of Systems Review of Systems: All systems reviewed & are unremarkable except as noted in HPI and below PMFSH Past Medical History Medical History (Updated 05/05/25 @ 22:26 by Sharda Quiles APRN) Anxiety and depression Diabetes Anemia Renal disease Kidney stones Lung cancer Coronary artery disease HLD (hyperlipidemia) TIA (transient ischemic attack) Seizures COPD (chronic obstructive pulmonary disease) Atrial fibrillation CVA (cerebral vascular accident) Residual right-sided deficits Surgical History Surgical History (Updated 05/05/25 @ 22:21 by Sharda Quiles APRN) History of hysterectomy History of tonsillectomy History of partial nephrectomy Social History Social History Smoking status: Former smoker Tobacco type: cigarettes Smoking end date: 11/10/23 Alcohol intake: former Substance use: never Do You Feel Safe in your Home?: Yes Lack of Transportation: No Lack of Food: Never True Current Housing: I Have Housing Concerned About Future Housing: No Difficulty Paying Gas/Electric Bills: No Difficulty Paying for Meds: No Currently Unemployed: No Education: Decline to Answer Difficulty w/ Childcare or Family Care: No Spiritual care concerns: No Meds Home Medications and Allergies Home Medications ?Medication ?Instructions ?Recorded ?Confirmed ?Type acetaminophen 325 mg capsule 650 mg PO Q4H pain 05/05/25 05/05/25 History albuterol sulfate 1.25 mg/3 mL 1.25 mg inhalation Q6H PRN 05/05/25 05/05/25 History solution for nebulization shortness of breath or wheezing albuterol sulfate 90 mcg/actuation 1 puff inhalation QID PRN 05/05/25 05/05/25 History aerosol inhaler (Ventolin HFA) shortness of breath or wheezing alprazolam 0.5 mg tablet 0.5 mg PO BID 05/05/25 05/05/25 History apixaban 5 mg tablet (Eliquis) 5 mg PO DAILY 05/05/25 05/05/25 History atorvastatin 10 mg tablet 10 mg PO HS 05/05/25 05/05/25 History calamine 1 ea topical BID PRN rash 05/05/25 05/05/25 History cholecalciferol (vitamin D3) 25 1,000 unit PO DAILY 05/05/25 05/05/25 History mcg (1,000 unit) capsule dicyclomine 20 mg tablet 20 mg PO QID PRN diarrhea 05/05/25 05/05/25 History ipratropium 0.5 mg-albuterol 3 mg 3 ml inhalation BID 05/05/25 05/05/25 History (2.5 mg base)/3 mL nebulization soln levofloxacin 750 mg tablet 750 mg PO Q24H 05/05/25 05/05/25 History magnesium hydroxide 400 mg/5 mL 30 ml PO BID PRN constipation 05/05/25 05/05/25 History oral suspension (Milk of Magnesia) melatonin 5 mg capsule 5 mg PO HS 05/05/25 05/05/25 History metoclopramide HCl 10 mg tablet 10 mg PO TIDWM 05/05/25 05/05/25 History metoclopramide HCl 5 mg tablet 10 mg PO HS 05/05/25 05/05/25 History metoprolol tartrate 25 mg tablet 25 mg PO BID 05/05/25 05/05/25 History mirtazapine 15 mg tablet 15 mg PO QHS 05/05/25 05/05/25 History oxycodone 5 mg tablet 5 mg PO Q6H PRN pain 05/05/25 05/05/25 History polyethylene glycol 3350 17 17 g PO DAILY 05/05/25 05/05/25 History gram/dose oral powder (ClearLax) senna-docusate sodium capsule 2 cap PO BID PRN constipation 05/05/25 05/05/25 History tizanidine 2 mg tablet 2 mg PO QHS 05/05/25 05/05/25 History Allergies Allergy/AdvReac Type Severity Reaction Status Date / Time Penicillins Allergy Severe Anaphylaxis Verified 05/05/25 09:00 Vital Signs Vital Signs - 24 hr 05/05/25 08:51 05/05/25 08:58 05/05/25 09:00 Temperature 98.0 F Pulse Rate 61 75 Respiratory Rate 20 18 Blood Pressure 114/82 Pulse Oximetry 95 95 95 Oxygen Delivery Nasal Cannula Nasal Cannula Oxygen Flow Rate 2 2 05/05/25 10:41 05/05/25 11:54 Temperature Pulse Rate 56 L 80 Respiratory Rate 20 20 Blood Pressure 112/73 122/62 Pulse Oximetry 96 96 Oxygen Delivery Oxygen Flow Rate Exam Const: General: comfortable and no acute distress Other: , female, chronically ill-appearing, nontoxic appearance HENMT: Face/Nose/Sinus: Normal nares present Mouth: Yes moist mucous membranes Eyes: General: appearance normal, both eyes and all related structures Sclera: sclerae normal Pupils: Equal, round and reactive pupils present EOM: EOMs intact bilaterally Resp: Effort & Inspection: normal respiratory effort Other: Bibasilar crackles, left worse than right. Nasal cannula place, tolerating well. No wheezing. Cardio: Rate: regular rate Rhythm: regular rhythm Other: S1-S2 present without murmur, rub, ectopy GI: Other: Abdomen soft, nondistended, nontender. Normoactive bowel sounds in all quadrants. Skin: General skin exam: normal color and no rashes or lesions noted Wounds: no wounds Neuro: Speech: normal speech Sensory Exam: normal sensation Other: A/Ox self, time, place, and situation. Residual right-sided deficits. Extrem: General: normal to inspection Psych: Mental Status: mental status grossly normal Other: Flat affect. Fair insight and judgment. H&P: Results Labs Labs: Short CBC 05/05/25 Range/Units 09:07 WBC 12.2 H (4.5-10.0) K/mm3 Hgb 11.8 L (12.0-15.0) g/dL Hct 39.2 (37.0-47.0) % Plt Count 310 (150-375) k/mm3 BMP 05/05/25 09:07 Sodium 142 Potassium 3.2 L Chloride 99 Carbon Dioxide 37 H BUN 8 D Creatinine 0.53 L Glucose 139 H Calcium 9.4 Cardiac Enzymes 05/05/25 Range/Units 09:07 Troponin I < 0.012 (0.000-0.034) ng/mL Liver Function 05/05/25 Range/Units 09:07 Total Bilirubin 0.3 (0.2-1.3) mg/dL AST 39 H (14-36) U/L ALT 22 (6-35) U/L Alkaline Phosphatase 106 (38-126) U/L Albumin 3.2 L (3.5-5.1) g/dL Assessment and Plan Assessment and plan (1) Congestive heart failure: Qualifiers: Heart failure type: unspecified Heart failure chronicity: acute Qualified Code(s): I50.9 - Heart failure, unspecified Code(s): I50.9 - Heart failure, unspecified Status: Acute Assessment and Plan: - BNP 716 - no echo on file, ordered - currently on a daily diuretic, start Lasix 20 mg IV daily - monitor I&Os and daily weights - trend renal function (2) Pneumonia: Qualifiers: Laterality: bilateral Lung location: lower lobe of lung Pneumonia type: due to unspecified organism Qualified Code(s): J18.9 - Pneumonia, unspecified organism Code(s): J18.9 - Pneumonia, unspecified organism Status: Acute Assessment and Plan: - diagnosis palpation, redemonstrated on CXR today - bilateral basilar - continue outpatient antibiotics: Levaquin - supportive care (3) COPD (chronic obstructive pulmonary disease): Qualifiers: COPD type: COPD with acute lower respiratory infection Qualified Code(s): J44.0 - Chronic obstructive pulmonary disease with (acute) lower respiratory infection Code(s): J44.9 - Chronic obstructive pulmonary disease, unspecified Status: Chronic Assessment and Plan: - DuoNebs p.r.n. - no wheezing leading to concerns for current exacerbation, will hold on steroid course (4) Diabetes: Qualifiers: Diabetes mellitus type: type 2 Diabetes mellitus intermediate frame tender insulin use: without intermediate frame tender use Diabetes mellitus complication status: without complication Qualified Code(s): E11.9 - Type 2 diabetes mellitus without complications Code(s): E11.9 - Type 2 diabetes mellitus without complications Status: Acute Assessment and Plan: - hypoglycemia protocol - POC blood glucose ACHS - no current home medications, arrived with a glucose of 139 - correct regimen ordered - low dose TIDWM - A1C ordered Plan Mild hypokalemia noted on initial evaluation, K 3.2. Repletion with KCl 40 p.o.. Recheck in a.m.. Diet: heart healthy GI Prophylaxis: NA DVT Prophylaxis: Eliquis IV fluids: none Lines/Tubes: peripheral IV Code Status: full code Quality VTE Prophylaxis VTE prophylaxis: pharmacologic ordered Hospitalist [facility] Advance Care Plan I have confirmed that the patient's Advanced Care Plan is present, code status is documented, or surrogate decision maker is listed in patient medical record.: Yes Medication Reconciliation I have utilized all available resources to obtain, update and review the patients current medications (includes all prescriptions, OTC, herbals, cannabis, and nutritional supplements).: Yes
--- NOTE | 2025-05-05 14:05 | ADMGEN ---
This patient, Linda Gray, was admitted to Medical Room 342-01. Patient/family oriented to hospital policies and general routines including ID bracelet, bed and alarms, visiting hours, pain management, procedures, bathroom and other care routines, personal items, smoking policy, room service/diet, and visiting hours. Information on how to activate the Rapid Response Team has been discussed. Patient/Family are encouraged to report perceived risks to care and to ask questions if they do not understand what they are told or what they should do.
[2025-05-05] MEDS: POTASSIUM CHLORIDE 20 MEQ ER TABLET 40 MEQ PO (15:17)
[2025-05-05 16:47] LABS: Troponin I < 0.012 ng/mL (0.000-0.034)
[2025-05-05] MEDS: guaiFENesin 12 HR 600 MG TABCR PO (20:23)
[2025-05-05] MEDS: ACETAMINOPHEN 325 MG TABLET 650 MG PO (20:27)
[2025-05-05] MEDS: BENZONATATE 100 MG CAPSULE PO (20:27)
[2025-05-06] VITALS (13 sets, daily range): BP systolic 104–107; BP diastolic 59–76; PULSE 67–86; RESP 16–20; TEMP 36.3–36.6; O2SAT 92–95
--- NOTE | 2025-05-06 | ECHO_ITS ---
Patient Info Name: Linda Gray Age: 69 years : 1955 Gender: Female Ht: 67 in Wt: 173 lbs BSA: 1.94 m2 HR: 77 bpm BP: 135 / 84 mmHg Technical Quality: Good Exam Date: 05/06/2025 2:59 PM Patient Status: I Admit Date: 05/06/2025 Exam Type: CA echo dop color flow w con Complete two-dimensional, color flow and Doppler transthoracic echocardiogram is performed with contrast to opacify the left ventricle and to improve the deliniation of the left ventricle endocardial borders. Staff Referring Physician: Perri Mi III Reliability Technologist: Maki Almonte Attending Provider: Adilene Perry Contrast/Agitated Saline Contrast/Ag. Saline: Definity Amount: 2.00 ml Administered By: Maki Almonte Existing IV Access: Yes IV Access Condition: patent with no signs of infiltration Summary 1. Left ventricular systolic function is normal, estimated at 50-55. 2. There is mildly increased left ventricular wall thickness. 3. There is mild tricuspid valve regurgitation. 4. No pulmonary hypertension, estimated pulmonary arterial systolic pressure is 26 mmHg. 5. Right ventricular chamber dimension is normal. 6. Right ventricular systolic function is normal. Left Ventricle Left ventricular chamber dimension is normal. Left ventricular systolic function is normal, estimated at 50-55. There is mildly increased left ventricular wall thickness. Left ventricular septal wall motion is normal. The left ventricular diastolic function is normal. Right Ventricle Right ventricular chamber dimension is normal. Right ventricular systolic function is normal. Left Atria Left atrial chamber dimension is normal. Right Atria Right atrial chamber dimension is normal. Aortic Valve The aortic valve is trileaflet. There is no aortic valve sclerosis. There is no aortic valve stenosis. There is no aortic valve regurgitation. Pulmonic Valve The pulmonic valve is normal. There is no pulmonic valve stenosis. There is trace pulmonic regurgitation. Mitral Valve The mitral valve has normal leaflets. There is no mitral valve stenosis. There is no mitral valve regurgitation. Tricuspid Valve The tricuspid valve leaflets are normal. There is no tricuspid valve stenosis. There is mild tricuspid valve regurgitation. No pulmonary hypertension, estimated pulmonary arterial systolic pressure is 26 mmHg. Pericardium/Pleural The pericardium appears normal. There is trivial pericardial effusion. Inferior Vena Cava Normal inferior vena cava with >50% collapse upon inspiration consistent with normal right atrial pressure, 3 mmHg. Aorta The aortic root size at the sinus of Valsalva is normal. The prox ascending aorta size is normal. Left Ventricular Outflow Tract Name Value Normal LVOT 2D LVOT Diameter 2.0 cm LVOT Doppler LVOT Peak Velocity 121 cm/s LVOT Peak Gradient 6 mmHg LVOT Mean Gradient 3 mmHg LVOT VTI 23 cm LVOT Stroke Volume 74 ml LVOT CO 4.3 l/min LVOT CI 2.2 l/min/m2 Pulmonic Valve Name Value Normal RVOT Doppler RVOT Peak Velocity 81 cm/s RVOT Peak Gradient 3 mmHg PV Doppler PV Peak Velocity 109 cm/s PV Peak Gradient 5 mmHg Mitral Valve Name Value Normal MV Diastolic Function MV E Peak Velocity 33 cm/s MV A Peak Velocity 57 cm/s MV E/A 0.6 MV Decel Time (PW) 338 ms Tricuspid Valve Name Value Normal TV Regurgitation Doppler TR Peak Velocity 243 cm/s TR Peak Gradient 24 mmHg Estimated PAP/RSVP RA Pressure 3 mmHg <=5 PA Systolic Pressure 26 mmHg <36 RV Systolic Pressure 27 mmHg <36 Aortic Valve Name Value Normal AV Doppler AV Peak Velocity 139 cm/s AV Peak Gradient 8 mmHg AV Area (Cont Eq Raza) 2.9 cm2 AV DI (Raza) 0.87 AV Regurgitation 2D LVOT Area 3.3 cm2 Ventricles Name Value Normal LV Dimensions 2D/MM IVS Diastolic Thickness (2D) 1.1 cm 0.6-1.0 LVID Diastole (2D) 5.3 cm 3.8-5.2 LVIW Diastolic Thickness (2D) 1.2 cm 0.6-0.9 LVID Systole (2D) 4.0 cm 2.2-3.5 LVOT Diameter 2.0 cm LV Mass (2D Cubed) 245.32 g 67.00-162.00 LV Mass Index (2D Cubed) 126 g/m2 43-95 Relative Wall Thickness (2D) 0.45 <=0.42 LV Fractional Shortening/Ejection Fraction 2D/MM LV Fractional Shortening (2D) 26 % 27-45 LV EF (2D Teichholz) 50 % LV Diastolic Volume (4C MOD) 100 ml LV EF (4C MOD) 47 % LV Diastolic Volume (2C MOD) 75 ml LV EF (2C MOD) 57 % LV Diastolic Volume (BP MOD) 88 ml 46-106 LV Diastolic Volume Index (BP MOD) 46 ml/m2 29-61 LV Systolic Volume (BP MOD) 42 ml 14-42 LV Systolic Volume Index (BP MOD) 22 ml/m2 8-24 LV EF (BP MOD) 52 % 54-74 LV Diastolic Length (4C) 7.7 cm LV Systolic Length (4C) 6.0 cm LV Stroke Volume (4C MOD) 47 ml Atria Name Value Normal LA Dimensions LA Volume (4C A-L) 53 ml LA Volume (BP A-L) 55 ml RA Dimensions RA Systolic Major [place] Length (4C) 6.2 cm 2.2-2.8 RA Area (4C) 19.4 cm2 <=18.0 Report Signatures
[2025-05-06] MEDS: IPRATROPIUM 0.5 MG/ALBUTEROL SULFATE 2.5 MG AMPUL.NEB 3 ML INHALATION (05:39)
[2025-05-06 05:40] LABS: Hematocrit 41.6 % (37.0-47.0); Hemoglobin 12.3 g/dL (12.0-15.0); Immature Granulocyte Percent A 3.2 % (0-0.5); Lymphocytes Absolute Auto 2.13 K/mm3 (0.9-3.2); Mean Corpuscular HGB Conc 29.6 g/dl (32-36); Mean Corpuscular Hemoglobin 29.0 pg (26-34); Mean Corpuscular Volume 98.1 fl (80-100); Nucleated Red Blood Cells Absolute Auto 0.000 K/mm3 (0.0-0.012); Nucleated Red Blood Cells Perc 0.0 % (0.0-0.2); Platelet Count Result 316 k/mm3 (150-375); Red Blood Count 4.24 M/mm3 (4.2-5.4); White Blood Count 10.2 K/mm3 (4.5-10.0)
[2025-05-06 06:39] LABS: Hypochromasia 1+; Schistocytes None Seen
[2025-05-06 07:54] LABS: Anion Gap 11 mmol/L (4-12); Blood Urea Nitrogen 10 mg/dL (7-17); Calcium 9.3 mg/dL (8.4-10.2); Carbon Dioxide 34 mmol/L (22-30); Chloride 95 mmol/L (98-107); Estimated CRCL calculation 92 ml/min; Estimated Glomerular Filt Rate > 60; Glucose 125 mg/dL (65-110); Potassium 3.4 mmol/L (3.4-5.0); Sodium 140 mmol/L (137-145)
--- NOTE | 2025-05-06 07:54 | P.PNIM_ITS ---
Progress Note: A&P Assessment and Plan (1) Congestive heart failure: Qualifiers: Heart failure chronicity: acute Heart failure type: unspecified Qualified Code(s): I50.9 - Heart failure, unspecified Code(s): I50.9 - Heart failure, unspecified Status: Acute Assessment and Plan: - Symptoms: shortness of breath - Current medications: Lasix 20 mg IV daily, not on diuretics at home - BNP: 716 - Chest XR: Bilateral basal pneumonia, left pleural effusion, and underlying pu lmonary edema is highly suggestive - Echo ordered - Monitor vital signs, I&Os, BUN/creatinine, daily weights, neuro status and patient is a fall risk - Monitor serum electrolytes, Keep serum Potassium>4 and serum Magnesium>2 and CBC (2) Pneumonia: Qualifiers: Laterality: bilateral Lung location: lower lobe of lung Pneumonia type: due to unspecified organism Qualified Code(s): J18.9 - Pneumonia, unspecified organism Code(s): J18.9 - Pneumonia, unspecified organism Status: Acute Assessment and Plan: CXR: Bilateral basal pneumonia, left pleural effusion, and underlying pulmonary edema is highly suggestive - continue outpatient antibiotic Levaquin - Viral PCR: negative for Flu/COVID/RSV - Consider ordering legionella, mycoplasma and pneumococcal - Remains on baseline oxygen supplementation of 2L NC - Monitor vital signs, I&Os, neuro status and patient is a fall risk - Follow WBC, serum electrolytes, temperature curves and cultures (3) COPD (chronic obstructive pulmonary disease): Qualifiers: COPD type: COPD with acute lower respiratory infection Qualified Code(s): J44.0 - Chronic obstructive pulmonary disease with (acute) lower res piratory infection Code(s): J44.9 - Chronic obstructive pulmonary disease, unspecified Status: Chronic Assessment and Plan: Chronic, does not appear in acute exacerbation as no wheezing on exam. Hold steroid course at this time. Derick p.r.nSylvain (4) Diabetes: Qualifiers: Diabetes mellitus complication status: without complication Diabetes mellitus rodent exterminator insulin use: without rodent exterminator use Diabetes mellitus type: type 2 Qualified Code(s): E11.9 - Type 2 diabetes mellitus without complications Code(s): E11.9 - Type 2 diabetes mellitus without complications Status: Acute Assessment and Plan: - hypoglycemia protocol - POC blood glucose ACHS - no current home medications, arrived with a glucose of 139 - correct regimen ordered - low dose TIDWM - A1C 6 (5) Atrial fibrillation: Code(s): I48.91 - Unspecified atrial fibrillation Status: Acute Assessment and Plan: - EKG: sinus rhythm - Not on a beta sofía, remains rate controlled - Anticoagulation: scott - Sound Technician Supervisor: Dr. Gallegos Time Spent With Patient Time with patient: 25 - 35 minutes Subjective Date/time seen: 05/06/25 07:54 Interval history: 69 year old female with past medical history of CVA, atrial fibrillation on anticoagulation, and COPD on chronic 2L [place] O2 supplementation presents to the hospital for shortness of breath. Patient is pleasant lying comfortably in bed. She states that her shortness of breath is about at her baseline and denies a cough. She does note increased chest discomfort with her hiccups she has no other complaints denying chest pain, palpitations, nausea/vomiting, and abdominal pain. Patient states that she is wheelchair-bound at the sling in the facility uses a Balwinder lift to transfer. Review of Systems Review of Systems: All systems reviewed & are unremarkable except as noted in HPI and below Exam Narrative: AF HR 67 RR 18 SpO2 92 2LNC baseline BP 107/76 General: female in no acute respiratory distress who is nontoxic appearing, lying semi recumbent in bed. HEENT: Normocephalic. Atraumatic. Extraocular movement intact. Sclera clear and anicteric. No facial asymmetry. Chest: Lungs are crackles to auscultation bilaterally. No wheezes. CV: Heart was regular rate and rhythm. Abd: Abdomen was soft. Nontender. Nondistended. Positive bowel sounds. Ext: No clubbing, cyanosis, or edema. DP pulses bilaterally. Neuro: Patient is alert. Speech is clear. Left-sided deficits from prior CVA. Objective Data Vital Signs Vital Signs: Vital Signs - 24 hr 05/05/25 08:51 05/05/25 08:58 05/05/25 09:00 Temperature 98.0 F Pulse Rate 61 75 Respiratory Rate 20 18 Blood Pressure 114/82 Pulse Oximetry 95 95 95 Oxygen Delivery Nasal Cannula Nasal Cannula Oxygen Flow Rate 2 2 Fraction of Inspired Oxygen 05/05/25 10:41 05/05/25 11:54 05/05/25 13:38 Temperature Pulse Rate 56 L 80 61 Respiratory Rate 20 20 20 Blood Pressure 112/73 122/62 101/66 Pulse Oximetry 96 96 97 Oxygen Delivery Oxygen Flow Rate Fraction of Inspired Oxygen 05/05/25 13:38 05/05/25 14:33 05/05/25 15:34 Temperature 99.3 F Pulse Rate 80 Respiratory Rate 20 Blood Pressure 147/98 H Pulse Oximetry 97 97 91 Oxygen Delivery Nasal Cannula Nasal Cannula Oxygen Flow Rate 2 2 Fraction of Inspired Oxygen 05/05/25 16:00 05/05/25 19:27 05/05/25 20:00 Temperature Pulse Rate 76 67 Respiratory Rate 20 Blood Pressure Pulse Oximetry 93 93 Oxygen Delivery Nasal Cannula Nasal Cannula Oxygen Flow Rate 2 2 Fraction of Inspired Oxygen 28 05/05/25 20:00 05/05/25 22:20 05/06/25 00:00 Temperature 97.7 F Pulse Rate 78 79 76 Respiratory Rate 16 Blood Pressure 135/84 Pulse Oximetry 94 Oxygen Delivery Oxygen Flow Rate Fraction of Inspired Oxygen 05/06/25 04:00 05/06/25 05:42 05/06/25 06:00 Temperature 97.5 F L Pulse Rate 68 77 78 Respiratory Rate 20 16 Blood Pressure 104/59 L Pulse Oximetry 94 Oxygen Delivery Oxygen Flow Rate Fraction of Inspired Oxygen Intake/Output Intake/Output: Intake & Output 05/03/25 05/04/25 05/05/25 05/06/25 23:59 23:59 23:59 23:59 Intake Total 700 Output Total 100 400 Balance 600 -400 Meds/Results Medications: Active Medications Generic Name Dose Route Start Last Admin Trade Name Freq PRN Reason Stop Dose Admin Acetaminophen 650 mg 05/05/25 13:42 05/05/25 20:27 Acetaminophen 325 Mg Tablet PO 650 mg Q6H PRN Administration Mild Pain (1-3) or Fever Albuterol/Ipratropium 3 ml 05/05/25 14:00 05/06/25 05:39 Ipratropium 0.5 Mg/Albuterol Sulfate 2.5 Mg Ampul.Neb 3 Ml INHALATION 3 ml Q6HRT PRN Administration Shortness Of Breath Or Wheezing Alprazolam 0.5 mg 05/06/25 09:00 Alprazolam (*Crx) 0.5 Mg Tablet PO BID [facility] Apixaban 5 mg 05/06/25 09:00 Apixaban 5 Mg Tablet PO DAILY [facility] Atorvastatin Calcium 10 mg 05/06/25 21:00 Atorvastatin 10 Mg Tablet PO HS ELLYN Benzonatate 100 mg 05/05/25 13:41 05/05/25 20:27 Benzonatate 100 Mg Capsule PO 100 mg TID PRN Administration Cough Calamine 1 applic 05/05/25 22:34 Calamine Lotion 120 Ml Bottle TOPICAL BID PRN rash Dextrose 12.5 gm 05/05/25 22:25 Dextrose 50% 25 Gm/50 Ml Syringe IV PUSH PRN PRN Hypoglycemia Protocol Furosemide 20 mg 05/06/25 09:00 Furosemide Inj 40 Mg/4 Ml Vial IV PUSH DAILY ELLYN Glucagon 1 mg 05/05/25 22:25 Glucagon For Inj 1 Mg Vial IM PRN PRN Hypoglycemia Protocol Glucose 15 gm 05/05/25 22:25 Glucose Oral Gel 15 Gm Of Glucse In 37.5 Gm Tube PO PRN PRN Hypoglycemia Protocol Guaifenesin 600 mg 05/05/25 21:00 05/05/25 20:23 Guaifenesin 12 Hr 600 Mg Tabcr PO 600 mg Q12HR ELLYN Administration Dextrose 1,000 mls @ 100 mls/hr 05/05/25 22:25 Dextrose 5% 1,000 Ml IVPB PRN PRN Hypoglycemia Protocol Insulin Aspart 2 - 5 units 05/06/25 08:00 Insulin Aspart (*Bkc) 100 Units/Ml SUB-Q TIDWM [facility] Protocol Levofloxacin 750 mg 05/05/25 22:35 05/05/25 23:00 Levofloxacin 750 Mg Tablet PO 05/09/25 21:01 750 mg HS ELLYN Administration Magnesium Hydroxide 30 ml 05/05/25 22:24 Magnesium Hydroxide Susp 30 Ml Udc PO BID PRN constipation Melatonin 5 mg 05/06/25 21:00 Melatonin 5 Mg Tablet PO HS ELLYN Metoclopramide HCl 10 mg 05/06/25 21:00 Metoclopramide Hcl 10 Mg Tablet PO HS ELLYN Metoclopramide HCl 10 mg 05/06/25 08:00 Metoclopramide Hcl 10 Mg Tablet PO TIDWM [facility] Metoprolol Tartrate 25 mg 05/06/25 09:00 Metoprolol Tartrate 25 Mg Tablet PO Q12HR ELLYN Mirtazapine 15 mg 05/06/25 21:00 Mirtazapine 15 Mg Tablet PO QHS ELLYN Oxycodone HCl 5 mg 05/05/25 22:24 Oxycodone Hcl (*Crx) 5 Mg Tab Ir PO Q6H PRN pain 7-10 Perflutren Lipid Microsphere 0 ml 05/05/25 13:16 Perflutren Lipid Microspheres 1.5 Ml Vial Diluted To 10 Ml Total Volume IV PUSH 05/08/25 13:16 ONCE PRN adequate visualization Protocol Polyethylene Glycol 17 gm 05/06/25 09:00 Polyethylene Glycol 3350 17 Gm Powd.Pack PO DAILY ELLYN Senna/Docusate Sodium 2 tab 05/05/25 22:33 Senna/Docusate Sodium Tablet PO BID PRN constipation Tizanidine HCl 2 mg 05/06/25 21:00 Tizanidine Hcl 2 Mg Tablet PO QHS ELLYN Vitamin D 25 mcg 05/06/25 09:00 Cholecalciferol (Vitamin D3) 25 Mcg (1,000 Units) Tablet PO DAILY [facility] Radiology Results: ITS Impressions Chest X-Ray 05/05/25 09:41 IMPRESSION: Bilateral basal pneumonia. Left pleural effusion. Underlying pulmonary edema is highly suggestive. Labs Labs: Laboratory Results - last 24 hr 05/05/25 05/05/25 05/05/25 09:07 16:15 21:03 WBC 12.2 H RBC 4.03 L Hgb 11.8 L Hct 39.2 MCV 97.3 MCH 29.3 MCHC 30.1 L RDW 12.8 Plt Count 310 MPV 12.1 H Immature Gran % (Auto) 2.3 H Neut % (Auto) 67.6 Lymph % (Auto) 17.6 L [place] % (Auto) 7.3 Eos % (Auto) 4.4 Baso % (Auto) 0.8 Lymph # (Auto) 2.14 [place] # (Auto) 0.9 H Eos # (Auto) 0.5 H Baso # (Auto) 0.1 Abs Immat Gran (auto) 0.28 H Absolute Neuts (auto) 8.2 H Absolute Nucleated RBC 0.000 Band Neutrophils % Nucleated RBC % 0.0 Platelet Estimate Hypochromasia Schistocytes Sodium 142 Potassium 3.2 L Chloride 99 Carbon Dioxide 37 H Anion Gap 6 BUN 8 D Creatinine 0.53 L Estim Creat Clear Calc 84 Estimated GFR > 60 Glucose 139 H POC Capillary Glucose 146 H Calcium 9.4 Total Bilirubin 0.3 AST 39 H ALT 22 Alkaline Phosphatase 106 Troponin I < 0.012 < 0.012 NT-Pro-B Natriuret Pep 716 H Total Protein 7.5 Albumin 3.2 L 05/06/25 05:28 WBC 10.2 H RBC 4.24 Hgb 12.3 Hct 41.6 MCV 98.1 MCH 29.0 MCHC 29.6 L RDW 12.6 Plt Count 316 MPV 11.9 H Immature Gran % (Auto) 3.2 H Neut % (Auto) 63.5 Lymph % (Auto) 20.9 [place] % (Auto) 6.7 Eos % (Auto) 4.6 H Baso % (Auto) 1.1 Lymph # (Auto) 2.13 [place] # (Auto) 0.7 H Eos # (Auto) 0.5 H Baso # (Auto) 0.1 Abs Immat Gran (auto) 0.33 H Absolute Neuts (auto) 6.5 Absolute Nucleated RBC 0.000 Band Neutrophils % Not Reportable Nucleated RBC % 0.0 Platelet Estimate Adequate Hypochromasia 1+ Schistocytes None seen Sodium Potassium Chloride Carbon Dioxide Anion Gap BUN Creatinine Estim Creat Clear Calc Estimated GFR Glucose POC Capillary Glucose Calcium Total Bilirubin AST ALT Alkaline Phosphatase Troponin I NT-Pro-B Natriuret Pep Total Protein Albumin Quality VTE Prophylaxis VTE prophylaxis: pharmacologic ordered
[2025-05-06] MEDS: METOCLOPRAMIDE HCL 10 MG TABLET PO ×4 (10:05→21:01)
[2025-05-06] MEDS: METOPROLOL TARTRATE 25 MG TABLET PO ×2 (10:06→21:02)
[2025-05-06] MEDS: ALPRAZolam (*CRX) 0.5 MG TABLET PO ×2 (10:06→17:20)
[2025-05-06] MEDS: CHOLECALCIFEROL (VITAMIN D3) 25 MCG (1,000 UNITS) TABLET PO (10:06)
[2025-05-06] MEDS: guaiFENesin 12 HR 600 MG TABCR PO ×2 (10:06→21:01)
[2025-05-06] MEDS: FUROSEMIDE INJ 40 MG/4 ML VIAL 20 MG IV PUSH (10:07)
[2025-05-06] MEDS: APIXABAN 5 MG TABLET PO (10:07)
[2025-05-06 10:28] LABS: Hemoglobin A1C 6.0 % (<5.7)
[2025-05-06] MEDS: PERFLUTREN LIPID MICROSPHERES 1.5 ML VIAL DILUTED TO 10 ML TOTAL VOLUME IV PUSH (15:50)
--- NOTE | 2025-05-06 16:05 | IVDEFINITY ---
Prior to administration of IV Definity the patient was educated on the risks and benefits of the imaging enhancing agent including potential adverse side effects. The patient verbalized understanding. Allergies were verified. No exclusion criteria were identified and at least one of the following inclusion criteria were met: 1) physician request, 2) patient technically difficult to image (per the [place] [employer] guidelines of two or more segments not discernable within the apical view), or 3) questionable left ventricular function. ?
[2025-05-06] MEDS: TIZANIDINE HCL 2 MG TABLET PO (21:01)
[2025-05-06] MEDS: MELATONIN 5 MG TABLET PO (21:01)
[2025-05-06] MEDS: ATORVASTATIN 10 MG TABLET PO (21:01)
[2025-05-06] MEDS: MIRTAZAPINE 15 MG TABLET PO (21:01)
[2025-05-06] MEDS: ACETAMINOPHEN 325 MG TABLET 650 MG PO (21:04)
[2025-05-07] VITALS (13 sets, daily range): BP systolic 92–114; BP diastolic 42–85; PULSE 55–75; RESP 16–18; TEMP 36.4–37.1; O2SAT 92–94
[2025-05-07 05:42] LABS: Hematocrit 38.6 % (37.0-47.0); Hemoglobin 12.1 g/dL (12.0-15.0); Mean Corpuscular HGB Conc 31.3 g/dl (32-36); Mean Corpuscular Hemoglobin 29.8 pg (26-34); Mean Corpuscular Volume 95.1 fl (80-100); Platelet Count Result 339 k/mm3 (150-375); Red Blood Count 4.06 M/mm3 (4.2-5.4); White Blood Count 10.1 K/mm3 (4.5-10.0)
[2025-05-07 06:00] LABS: Alanine Aminotransferase 15 U/L (6-35); Albumin Level 3.2 g/dL (3.5-5.1); Alkaline Phosphatase 94 U/L (38-126); Anion Gap 10 mmol/L (4-12); Aspartate Amino Transferase 22 U/L (14-36); Bilirubin,Total 0.4 mg/dL (0.2-1.3); Blood Urea Nitrogen 12 mg/dL (7-17); Calcium 9.0 mg/dL (8.4-10.2); Carbon Dioxide 35 mmol/L (22-30); Chloride 93 mmol/L (98-107); Estimated CRCL calculation 89 ml/min; Estimated Glomerular Filt Rate > 60; Glucose 138 mg/dL (65-110); Potassium 3.1 mmol/L (3.4-5.0); Sodium 138 mmol/L (137-145); Total Protein 7.4 g/dL (6.3-8.2)
--- NOTE | 2025-05-07 07:51 | ECG_ITS ---
Test Date: 2025-05-07 09:02:25 Measurements Intervals [place] Rate: 80 P: 83 RI: 183 QRS: -19 QRSD: 105 T: -39 QT: 415 QTc: 481 Interpretive Statements SINUS RHYTHM WITH OCCASIONAL VENTRICULAR PREMATURE COMPLEXES WITH FREQUENT SUPRAVENTRICULAR PREMATURE COMPLEXES NONSPECIFIC T-WAVE ABNORMALITY ABNORMAL ECG Compared to ECG 05/05/2025 08:55:44 NO SIGNIFICANT CHANGE Electronically Signed On 05-07-2025 12:53:07 CDT by Jose A Zarate M.D.
[2025-05-07] MEDS: MORPHINE SULFATE (*CRX) 2 MG/ML INJ 0.5 MG IV PUSH (08:22)
[2025-05-07] MEDS: FUROSEMIDE INJ 40 MG/4 ML VIAL IV PUSH (08:22)
[2025-05-07] MEDS: guaiFENesin 12 HR 600 MG TABCR PO ×2 (08:22→20:23)
[2025-05-07] MEDS: APIXABAN 5 MG TABLET PO (08:22)
[2025-05-07] MEDS: POTASSIUM CHLORIDE INJ 40 MEQ in SODIUM CHLORIDE 0.9% IV 500 ML 130 MEQ IVPB (08:22)
[2025-05-07] MEDS: CHOLECALCIFEROL (VITAMIN D3) 25 MCG (1,000 UNITS) TABLET PO (08:23)
[2025-05-07] MEDS: METOCLOPRAMIDE HCL 10 MG TABLET PO ×4 (08:23→20:23)
[2025-05-07] MEDS: ALPRAZolam (*CRX) 0.5 MG TABLET PO ×2 (08:23→17:43)
[2025-05-07 08:24] LABS: Troponin I < 0.012 ng/mL (0.000-0.034)
[2025-05-07] MEDS: METOPROLOL TARTRATE 25 MG TABLET PO ×2 (09:43→20:23)
[2025-05-07] MEDS: oxyCODONE HCL (*CRX) 5 MG TAB IR PO (09:46)
--- NOTE | 2025-05-07 10:22 | PC.NURSE ---
Pt complaining of chest pain, heavy in nature. Stabbing pain to center of chest with deep inhaling. Patient reports coughing. Vitals stable. Notified provider- order received for troponin, EKG, chest x-ray, morphine x1 dose, and 40meq Potassium IVPB.
[2025-05-07] MEDS: LIDOCAINE 5% PATCH 1 PATCH TRANSDERM (11:46)
--- NOTE | 2025-05-07 15:22 | P.PNIM_ITS ---
Progress Note: A&P Assessment and Plan (1) Congestive heart failure: Qualifiers: Heart failure chronicity: acute Heart failure type: unspecified Qualified Code(s): I50.9 - Heart failure, unspecified Code(s): I50.9 - Heart failure, unspecified Status: Acute Assessment and Plan: - Symptoms: shortness of breath - Current medications: Lasix 20 mg IV daily, not on diuretics at home - BNP: 716 - Chest XR: Bilateral basal pneumonia, left pleural effusion, and underlying pu lmonary edema is highly suggestive - Echo ordered - Monitor vital signs, I&Os, BUN/creatinine, daily weights, neuro status and patient is a fall risk - Monitor serum electrolytes, Keep serum Potassium>4 and serum Magnesium>2 and CBC i/o reviewed. chets xray ordered to be repeated (2) Pneumonia: Qualifiers: Pneumonia type: due to unspecified organism Laterality: bilateral Lung location: lower lobe of lung Qualified Code(s): J18.9 - Pneumonia, unspecified organism Code(s): J18.9 - Pneumonia, unspecified organism Status: Acute Assessment and Plan: CXR: Bilateral basal pneumonia, left pleural effusion, and underlying pulmonary edema is highly suggestive - continue outpatient antibiotic Levaquin - Viral PCR: negative for Flu/COVID/RSV - Consider ordering legionella, mycoplasma and pneumococcal - Remains on baseline oxygen supplementation of 2L NC - Monitor vital signs, I&Os, neuro status and patient is a fall risk - Follow WBC, serum electrolytes, temperature curves and cultures - chest pain could be due to pnemonia will repeat chest xray continue antibiotics (3) COPD (chronic obstructive pulmonary disease): Qualifiers: COPD type: COPD with acute lower respiratory infection Qualified Code(s): J44.0 - Chronic obstructive pulmonary disease with (acute) lower respiratory infection Code(s): J44.9 - Chronic obstructive pulmonary disease, unspecified Status: Chronic Assessment and Plan: Chronic, does not appear in acute exacerbation as no wheezing on exam. Hold steroid course at this time. 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 use Diabetes mellitus complication status: without complication Qualified Code(s): E11.9 - Type 2 diabetes mellitus without complications Code(s): E11.9 - Type 2 diabetes mellitus without complications Status: Acute Assessment and Plan: - hypoglycemia protocol - POC blood glucose ACHS - no current home medications, arrived with a glucose of 139 - correct regimen ordered - low dose TIDWM - A1C 6 (5) Atrial fibrillation: Code(s): I48.91 - Unspecified atrial fibrillation Status: Acute Assessment and Plan: - EKG: sinus rhythm - Not on a beta sofía, remains rate controlled - Anticoagulation: [email or web address] - [facility] Nurse: Dr. Gallegos Time Spent With Patient Time with patient: 25 - 35 minutes Subjective Date/time seen: 05/07/25 15:22 Interval history: 69 year old female with past medical history of CVA, atrial fibrillation on anticoagulation, and COPD on chronic 2L [place] O2 supplementation presents to the hospital for shortness of breath. Patient is pleasant lying comfortably in bed. She states that her shortness of breath is about at her baseline and denies a cough. She does note increased chest discomfort with her hiccups she has no other complaints denying chest pain, palpitations, nausea/vomiting, and abdominal pain. Patient states that she is wheelchair-bound at the sling in the facility uses a Balwinder lift to transfer. 7/- pt continues to have chest pain. EKG, trop ordered. card consulted. Review of Systems Review of Systems: All systems reviewed & are unremarkable except as noted in HPI and below Exam Narrative: AF HR 67 RR 18 SpO2 92 2LNC baseline BP 107/76 General: female in no acute respiratory distress who is nontoxic appearing, lying semi recumbent in bed. HEENT: Normocephalic. Atraumatic. Extraocular movement intact. Sclera clear and anicteric. No facial asymmetry. Chest: Lungs are crackles to auscultation bilaterally. No wheezes. CV: Heart was regular rate and rhythm. Abd: Abdomen was soft. Nontender. Nondistended. Positive bowel sounds. Ext: No clubbing, cyanosis, or edema. DP pulses bilaterally. Neuro: Patient is alert. Speech is clear. Left-sided deficits from prior CVA. Const: General: comfortable and no acute distress Other: , female, chronically ill-appearing, nontoxic appearance HENMT: Face/Nose/Sinus: Normal nares present Mouth: Yes moist mucous membranes Eyes: General: appearance normal, both eyes and all related structures Sclera: sclerae normal Pupils: Equal, round and reactive pupils present EOM: EOMs intact bilaterally Resp: Effort & Inspection: normal respiratory effort Other: Bibasilar crackles, left worse than right. Nasal cannula place, tolerating well. No wheezing. Cardio: Rate: regular rate Rhythm: regular rhythm Other: S1-S2 present without murmur, rub, ectopy GI: Other: Abdomen soft, nondistended, nontender. Normoactive bowel sounds in all quadrants. Skin: General skin exam: normal color and no rashes or lesions noted Wounds: no wounds Neuro: Cranial nerves: Yes Equal, round and reactive pupils present Speech: normal speech Sensory Exam: normal sensation Other: A/Ox self, time, place, and situation. Residual right-sided deficits. Extrem: General: normal to inspection Psych: Mental Status: mental status grossly normal Other: Flat affect. Fair insight and judgment. Objective Data Vital Signs Vital Signs: Vital Signs - 24 hr 05/06/25 16:00 05/06/25 20:00 05/06/25 20:00 Temperature Pulse Rate 80 81 Respiratory Rate Blood Pressure Pulse Oximetry 95 Oxygen Delivery Nasal Cannula Oxygen Flow Rate 2 Fraction of Inspired Oxygen 05/06/25 21:13 05/07/25 00:00 05/07/25 04:00 Temperature 97.8 F Pulse Rate 71 61 62 Respiratory Rate 16 Blood Pressure 106/67 Pulse Oximetry 95 Oxygen Delivery Oxygen Flow Rate Fraction of Inspired Oxygen 05/07/25 05:41 05/07/25 08:00 05/07/25 08:11 Temperature 97.6 F Pulse Rate 64 72 Respiratory Rate 16 Blood Pressure 112/42 L 114/69 Pulse Oximetry 92 92 93 Oxygen Delivery Nasal Cannula Oxygen Flow Rate 2 Fraction of Inspired Oxygen 05/07/25 08:12 05/07/25 08:40 05/07/25 09:43 Temperature Pulse Rate 72 75 Respiratory Rate Blood Pressure Pulse Oximetry 92 Oxygen Delivery Nasal Cannula Oxygen Flow Rate 2 Fraction of Inspired Oxygen 05/07/25 13:58 Temperature 98.8 F Pulse Rate 67 Respiratory Rate 18 Blood Pressure 104/85 Pulse Oximetry 92 Oxygen Delivery Oxygen Flow Rate Fraction of Inspired Oxygen Intake/Output Intake/Output: Intake & Output 05/04/25 05/05/25 05/06/25 05/07/25 23:59 23:59 23:59 23:59 Intake Total 700 960 510.3 Output Total 100 900 700 Balance 600 60 -189.7 Meds/Results Medications: Active Medications Generic Name Dose Route Start Last Admin Trade Name Freq PRN Reason Stop Dose Admin Acetaminophen 650 mg 05/05/25 13:42 05/06/25 21:04 Acetaminophen 325 Mg Tablet PO 650 mg Q6H PRN Administration Mild Pain (1-3) or Fever Albuterol/Ipratropium 3 ml 05/05/25 14:00 05/06/25 05:39 Ipratropium 0.5 Mg/Albuterol Sulfate 2.5 Mg Ampul.Neb 3 Ml INHALATION 3 ml Q6HRT PRN Administration Shortness Of Breath Or Wheezing Alprazolam 0.5 mg 05/06/25 09:00 05/07/25 08:23 Alprazolam (*Crx) 0.5 Mg Tablet PO 0.5 mg BID ELLYN Administration Apixaban 5 mg 05/06/25 09:00 05/07/25 08:22 Apixaban 5 Mg Tablet PO 5 mg DAILY ELLYN Administration Atorvastatin Calcium 10 mg 05/06/25 21:00 05/06/25 21:01 Atorvastatin 10 Mg Tablet PO 10 mg HS ELLYN Administration Benzonatate 100 mg 05/05/25 13:41 05/05/25 20:27 Benzonatate 100 Mg Capsule PO 100 mg TID PRN Administration Cough Calamine 1 applic 05/05/25 22:34 Calamine Lotion 120 Ml Bottle TOPICAL BID PRN rash Dextrose 12.5 gm 05/05/25 22:25 Dextrose 50% 25 Gm/50 Ml Syringe IV PUSH PRN PRN Hypoglycemia Protocol Furosemide 40 mg 05/07/25 09:00 05/07/25 08:22 Furosemide Inj 40 Mg/4 Ml Vial IV PUSH 40 mg DAILY ELLYN Administration Glucagon 1 mg 05/05/25 22:25 Glucagon For Inj 1 Mg Vial IM PRN PRN Hypoglycemia Protocol Glucose 15 gm 05/05/25 22:25 Glucose Oral Gel 15 Gm Of Glucse In 37.5 Gm Tube PO PRN PRN Hypoglycemia Protocol Guaifenesin 600 mg 05/05/25 21:00 05/07/25 08:22 Guaifenesin 12 Hr 600 Mg Tabcr PO 600 mg Q12HR ELLYN Administration Dextrose 1,000 mls @ 100 mls/hr 05/05/25 22:25 Dextrose 5% 1,000 Ml IVPB PRN PRN Hypoglycemia Protocol Insulin Aspart 2 - 5 units 05/06/25 08:00 05/07/25 11:57 Insulin Aspart (*Bkc) 100 Units/Ml SUB-Q Not Given TIDWM ELLYN Protocol Levofloxacin 750 mg 05/05/25 22:35 05/06/25 21:02 Levofloxacin 750 Mg Tablet PO 05/09/25 21:01 750 mg HS ELLYN Administration Lidocaine 1 patch 05/07/25 10:25 05/07/25 11:46 Lidocaine 5% Patch TRANSDERM 1 patch DAILY ELLYN Administration Magnesium Hydroxide 30 ml 05/05/25 22:24 Magnesium Hydroxide Susp 30 Ml Udc PO BID PRN constipation Melatonin 5 mg 05/06/25 21:00 05/06/25 21:01 Melatonin 5 Mg Tablet PO 5 mg HS ELLYN Administration Metoclopramide HCl 10 mg 05/06/25 21:00 05/06/25 21:01 Metoclopramide Hcl 10 Mg Tablet PO 10 mg HS ELLYN Administration Metoclopramide HCl 10 mg 05/06/25 08:00 05/07/25 11:46 Metoclopramide Hcl 10 Mg Tablet PO 10 mg TIDWM ELLYN Administration Metoprolol Tartrate 25 mg 05/06/25 09:00 05/07/25 09:43 Metoprolol Tartrate 25 Mg Tablet PO 25 mg Q12HR ELLYN Administration Mirtazapine 15 mg 05/06/25 21:00 05/06/25 21:01 Mirtazapine 15 Mg Tablet PO 15 mg QHS ELLYN Administration Oxycodone HCl 5 mg 05/05/25 22:24 05/07/25 09:46 Oxycodone Hcl (*Crx) 5 Mg Tab Ir PO 5 mg Q6H PRN Administration pain 7-10 Polyethylene Glycol 17 gm 05/06/25 09:00 05/07/25 08:24 Polyethylene Glycol 3350 17 Gm Powd.Pack PO 17 gm DAILY ELLYN Administration Senna/Docusate Sodium 2 tab 05/05/25 22:33 Senna/Docusate Sodium Tablet PO BID PRN constipation Tizanidine HCl 2 mg 05/06/25 21:00 05/06/25 21:01 Tizanidine Hcl 2 Mg Tablet PO 2 mg QHS ELLYN Administration Vitamin D 25 mcg 05/06/25 09:00 05/07/25 08:23 Cholecalciferol (Vitamin D3) 25 Mcg (1,000 Units) Tablet PO 25 mcg DAILY ELLYN Administration Radiology Results: ITS Impressions Chest X-Ray 05/07/25 12:11 IMPRESSION: Moderate left-sided pleural effusion, as detailed above. Labs Labs: Laboratory Results - last 24 hr 05/06/25 05/06/25 05/07/25 16:45 19:35 05:34 WBC 10.1 H RBC 4.06 L Hgb 12.1 Hct 38.6 MCV 95.1 MCH 29.8 MCHC 31.3 L RDW 12.6 Plt Count 339 MPV 11.7 H Sodium 138 Potassium 3.1 L Chloride 93 L Carbon Dioxide 35 H Anion Gap 10 BUN 12 Creatinine 0.50 L Estim Creat Clear Calc 89 Estimated GFR > 60 Glucose 138 H POC Capillary Glucose 120 H 161 H Calcium 9.0 Total Bilirubin 0.4 AST 22 ALT 15 Alkaline Phosphatase 94 Troponin I Total Protein 7.4 Albumin 3.2 L 05/07/25 05/07/25 05/07/25 07:57 07:58 11:50 WBC RBC Hgb Hct MCV MCH MCHC RDW Plt Count MPV Sodium Potassium Chloride Carbon Dioxide Anion Gap BUN Creatinine Estim Creat Clear Calc Estimated GFR Glucose POC Capillary Glucose 139 H 114 H Calcium Total Bilirubin AST ALT Alkaline Phosphatase Troponin I < 0.012 Total Protein Albumin Quality VTE Prophylaxis VTE prophylaxis: pharmacologic ordered
--- NOTE | 2025-05-07 17:07 | PM.CNCAR ---
Assessment and Plan Assessment and plan (1) Atrial fibrillation: Code(s): I48.91 - Unspecified atrial fibrillation Status: Acute Plan 1. Atrial fibrillation 2. History of CVA 3. Hypertension -keep on low does Lasix at 20 mg once daily, can be transitioned to twice weekly as an outpatient -continue apixaban 5 mg twice daily -rest of the management as per primary team History of Present Illness History of Present Illness Consult date/time: 05/07/25 17:07 Reason For Visit: chf Narrative: 69 year old female with past medical history of CVA, atrial fibrillation on anticoagulation, and COPD on chronic 2L NC O2 supplementation was admitted with shortness of bread found to have a pneumonia and elevated BNP of around 700. She received IV diuretics prior to my evaluation Her echo shows preserved LV systolic function, normal diastolic function, no pulmonary hypertension Is lying comfortably on the bed and states her dyspnea is back to baseline She denies any chest pain, palpitation, presyncope or syncope Review of Systems Review of Systems: All systems reviewed & are unremarkable except as noted in HPI and below FORMERLY [facility], [facility]–1983 Past Medical History Medical History (Updated 05/06/25 @ 08:04 by Adilene Perry PA-C) Anxiety and depression Diabetes Anemia Renal disease Kidney stones Lung cancer Coronary artery disease HLD (hyperlipidemia) TIA (transient ischemic attack) Seizures COPD (chronic obstructive pulmonary disease) Atrial fibrillation CVA (cerebral vascular accident) Residual right-sided deficits Surgical History Surgical History (Updated 05/05/25 @ 22:21 by Sharda Quiles APRN) History of hysterectomy History of tonsillectomy History of partial nephrectomy Social History Social History Smoking status: Former smoker Tobacco type: cigarettes Smoking end date: 11/10/23 Alcohol intake: former Substance use: never Do You Feel Safe in your Home?: Yes Lack of Transportation: No Lack of Food: Never True Current Housing: I Have Housing Concerned About Future Housing: No Difficulty Paying Gas/Electric Bills: No Difficulty Paying for Meds: No Currently Unemployed: No Education: Decline to Answer Difficulty w/ Childcare or Family Care: No Spiritual care concerns: No Meds Home Medications and Allergies Home Medications ?Medication ?Instructions ?Recorded ?Confirmed ?Type acetaminophen 325 mg capsule 650 mg PO Q4H pain 05/05/25 05/05/25 History albuterol sulfate 1.25 mg/3 mL 1.25 mg inhalation Q6H PRN 05/05/25 05/05/25 History solution for nebulization shortness of breath or wheezing albuterol sulfate 90 mcg/actuation 1 puff inhalation QID PRN 05/05/25 05/05/25 History aerosol inhaler (Ventolin HFA) shortness of breath or wheezing alprazolam 0.5 mg tablet 0.5 mg PO BID 05/05/25 05/05/25 History apixaban 5 mg tablet (Eliquis) 5 mg PO DAILY 05/05/25 05/05/25 History atorvastatin 10 mg tablet 10 mg PO HS 05/05/25 05/05/25 History calamine 1 ea topical BID PRN rash 05/05/25 05/05/25 History cholecalciferol (vitamin D3) 25 1,000 unit PO DAILY 05/05/25 05/05/25 History mcg (1,000 unit) capsule dicyclomine 20 mg tablet 20 mg PO QID PRN diarrhea 05/05/25 05/05/25 History ipratropium 0.5 mg-albuterol 3 mg 3 ml inhalation BID 05/05/25 05/05/25 History (2.5 mg base)/3 mL nebulization soln levofloxacin 750 mg tablet 750 mg PO Q24H 05/05/25 05/05/25 History magnesium hydroxide 400 mg/5 mL 30 ml PO BID PRN constipation 05/05/25 05/05/25 History oral suspension (Milk of Magnesia) melatonin 5 mg capsule 5 mg PO HS 05/05/25 05/05/25 History metoclopramide HCl 10 mg tablet 10 mg PO TIDWM 05/05/25 05/05/25 History metoclopramide HCl 5 mg tablet 10 mg PO HS 05/05/25 05/05/25 History metoprolol tartrate 25 mg tablet 25 mg PO BID 05/05/25 05/05/25 History mirtazapine 15 mg tablet 15 mg PO QHS 05/05/25 05/05/25 History oxycodone 5 mg tablet 5 mg PO Q6H PRN pain 05/05/25 05/05/25 History polyethylene glycol 3350 17 17 g PO DAILY 05/05/25 05/05/25 History gram/dose oral powder (ClearLax) senna-docusate sodium capsule 2 cap PO BID PRN constipation 05/05/25 05/05/25 History tizanidine 2 mg tablet 2 mg PO QHS 05/05/25 05/05/25 History Allergies Allergy/AdvReac Type Severity Reaction Status Date / Time Penicillins Allergy Severe Anaphylaxis Verified 05/05/25 09:00 Vital Signs Vital Signs - 24 hr 05/06/25 20:00 05/06/25 20:00 05/06/25 21:13 Temperature 36.6 C Pulse Rate 81 71 Respiratory Rate 16 Blood Pressure 106/67 Pulse Oximetry 95 95 Oxygen Delivery Nasal Cannula Oxygen Flow Rate 2 Fraction of Inspired Oxygen 05/07/25 00:00 05/07/25 04:00 05/07/25 05:41 Temperature 36.4 C Pulse Rate 61 62 64 Respiratory Rate 16 Blood Pressure 112/42 L Pulse Oximetry 92 Oxygen Delivery Oxygen Flow Rate Fraction of Inspired Oxygen 05/07/25 08:00 05/07/25 08:11 05/07/25 08:12 Temperature Pulse Rate 72 72 Respiratory Rate Blood Pressure 114/69 Pulse Oximetry 92 93 Oxygen Delivery Nasal Cannula Oxygen Flow Rate 2 Fraction of Inspired Oxygen 05/07/25 08:40 05/07/25 09:43 05/07/25 13:58 Temperature 37.1 C Pulse Rate 75 67 Respiratory Rate 18 Blood Pressure 104/85 Pulse Oximetry 92 92 Oxygen Delivery Nasal Cannula Oxygen Flow Rate 2 Fraction of Inspired Oxygen 28 Exam Narrative: AF HR 67 RR 18 SpO2 92 2LNC baseline BP 107/76 General: female in no acute respiratory distress who is nontoxic appearing, lying semi recumbent in bed. HEENT: Normocephalic. Atraumatic. Extraocular movement intact. Sclera clear and anicteric. No facial asymmetry. Chest: Lungs are crackles to auscultation bilaterally. No wheezes. CV: Heart was regular rate and rhythm. Abd: Abdomen was soft. Nontender. Nondistended. Positive bowel sounds. Ext: No clubbing, cyanosis, or edema. DP pulses bilaterally. Neuro: Patient is alert. Speech is clear. Left-sided deficits from prior CVA. Const: General: healthy appearing, comfortable, no acute distress and well nourished Nutritional Appearance: well nourished Orientation/consciousness: patient oriented x3 Other: , female, chronically ill-appearing, nontoxic appearance HENMT: Face/Nose/Sinus: Normal nares present Mouth: Yes moist mucous membranes Eyes: General: appearance normal, both eyes and all related structures Sclera: sclerae normal Pupils: Equal, round and reactive pupils present EOM: EOMs intact bilaterally Neck: Neck: no meningeal signs Chest: Chest palpation & inspection: normal inspection of the chest Resp: Effort & Inspection: normal respiratory effort Auscultation: crackles Other: Bibasilar crackles, left worse than right. Nasal cannula place, tolerating well. No wheezing. Cardio: Rate: regular rate Rhythm: regular rhythm Other: S1-S2 present without murmur, rub, ectopy GI: Auscultation: normal bowel sounds Other: Abdomen soft, nondistended, nontender. Normoactive bowel sounds in all quadrants. Skin: General skin exam: normal color and no rashes or lesions noted Rashes: no rashes Wounds: no wounds Neuro: General: patient oriented x3, moves all extremities, no meningeal signs and no focal motor deficits Cranial nerves: Yes Equal, round and reactive pupils present Speech: normal speech Sensory Exam: normal sensation Other: A/Ox self, time, place, and situation. Residual right-sided deficits. Extrem: General: normal to inspection and no clubbing, cyanosis or edema Psych: Mental Status: mental status grossly normal Affect: normal affect Attitude: cooperative Other: Flat affect. Fair insight and judgment. Results Labs and Meds 05/07/25 05:34 05/07/25 05:34 Lab results: Cardiac Enzymes 05/07/25 05/07/25 Range/Units 05:34 07:58 AST 22 (14-36) U/L Troponin I < 0.012 (0.000-0.034) ng/mL CBC 05/07/25 Range/Units 05:34 WBC 10.1 H (4.5-10.0) K/mm3 RBC 4.06 L (4.2-5.4) M/mm3 Hgb 12.1 (12.0-15.0) g/dL Hct 38.6 (37.0-47.0) % Plt Count 339 (150-375) k/mm3 Comprehensive Metabolic Panel 05/07/25 Range/Units 05:34 Sodium 138 (137-145) mmol/L Potassium 3.1 L (3.4-5.0) mmol/L Chloride 93 L (98-107) mmol/L Carbon Dioxide 35 H (22-30) mmol/L BUN 12 (7-17) mg/dL Creatinine 0.50 L (0.7-1.0) mg/dL Glucose 138 H (65-110) mg/dL Calcium 9.0 (8.4-10.2) mg/dL AST 22 (14-36) U/L ALT 15 (6-35) U/L Alkaline Phosphatase 94 (38-126) U/L Total Protein 7.4 (6.3-8.2) g/dL Albumin 3.2 L (3.5-5.1) g/dL Intake and Output 05/07/25 05/07/25 05/07/25 07:59 15:59 23:59 Intake Total 0 510.3 Output Total 100 600 Balance -100 -89.7 Intake: IV 30.3 Potassium Chloride Inj 40 meq 30.3 In Sodium Chloride 0.9% IV 500 ml @ 130 mls/hr IVPB ONCE ONE Rx#:[id number] Oral 0 480 Output: Catheter Urine 100 600 External/Condom 100 600 Other: # Unmeasured Voids 1 # Incontinent Voids 1 Number of Bowel Movements Today 1 2 Patient Weight 05/07/25 23:59 Weight 74 kg
[2025-05-07] MEDS: TIZANIDINE HCL 2 MG TABLET PO (20:23)
[2025-05-07] MEDS: MIRTAZAPINE 15 MG TABLET PO (20:23)
[2025-05-07] MEDS: ATORVASTATIN 10 MG TABLET PO (20:23)
[2025-05-07] MEDS: MELATONIN 5 MG TABLET PO (20:23)
[2025-05-08] VITALS (12 sets, daily range): BP systolic 106–147; BP diastolic 57–74; PULSE 58–78; RESP 16–20; TEMP 36.4–36.6; O2SAT 92–95
[2025-05-08 06:07] LABS: Hematocrit 39.6 % (37.0-47.0); Hemoglobin 12.2 g/dL (12.0-15.0); Mean Corpuscular HGB Conc 30.8 g/dl (32-36); Mean Corpuscular Hemoglobin 29.5 pg (26-34); Mean Corpuscular Volume 95.7 fl (80-100); Platelet Count Result 344 k/mm3 (150-375); Red Blood Count 4.14 M/mm3 (4.2-5.4); White Blood Count 10.7 K/mm3 (4.5-10.0)
[2025-05-08 06:18] LABS: Alanine Aminotransferase 14 U/L (6-35); Albumin Level 3.5 g/dL (3.5-5.1); Alkaline Phosphatase 102 U/L (38-126); Anion Gap 7 mmol/L (4-12); Aspartate Amino Transferase 19 U/L (14-36); Bilirubin,Total 0.4 mg/dL (0.2-1.3); Blood Urea Nitrogen 13 mg/dL (7-17); Calcium 9.3 mg/dL (8.4-10.2); Carbon Dioxide 36 mmol/L (22-30); Chloride 95 mmol/L (98-107); Estimated CRCL calculation 68 ml/min; Estimated Glomerular Filt Rate > 60; Glucose 139 mg/dL (65-110); Potassium 3.5 mmol/L (3.4-5.0); Sodium 138 mmol/L (137-145); Total Protein 7.8 g/dL (6.3-8.2)
--- NOTE | 2025-05-08 08:32 | PM.PNCARD ---
Progress Note: A&P Assessment and Plan (1) Atrial fibrillation: Code(s): I48.91 - Unspecified atrial fibrillation Status: Acute Plan 1. Atrial fibrillation 2. History of CVA 3. Hypertension -keep on low does Lasix at 20 mg once daily, can be transitioned to twice weekly as an outpatient -continue apixaban 5 mg twice daily -rest of the management as per primary team -cardiology will sign off Subjective Date/time seen: 05/08/25 08:32 Interval history: No acute events overnight Review of Systems Review of Systems: All systems reviewed & are unremarkable except as noted in HPI and below Exam Narrative: AF HR 67 RR 18 SpO2 92 2LNC baseline BP 107/76 General: female in no acute respiratory distress who is nontoxic appearing, lying semi recumbent in bed. HEENT: Normocephalic. Atraumatic. Extraocular movement intact. Sclera clear and anicteric. No facial asymmetry. Chest: Lungs are crackles to auscultation bilaterally. No wheezes. CV: Heart was regular rate and rhythm. Abd: Abdomen was soft. Nontender. Nondistended. Positive bowel sounds. Ext: No clubbing, cyanosis, or edema. DP pulses bilaterally. Neuro: Patient is alert. Speech is clear. Left-sided deficits from prior CVA. Const: General: healthy appearing, comfortable, no acute distress and well nourished Nutritional Appearance: well nourished Orientation/consciousness: patient oriented x3 Other: , female, chronically ill-appearing, nontoxic appearance HENMT: Face/Nose/Sinus: Normal nares present Mouth: Yes moist mucous membranes Eyes: General: appearance normal, both eyes and all related structures Sclera: sclerae normal Pupils: Equal, round and reactive pupils present EOM: EOMs intact bilaterally Neck: Neck: no meningeal signs Chest: Chest palpation & inspection: normal inspection of the chest Resp: Effort & Inspection: normal respiratory effort Auscultation: crackles Other: Bibasilar crackles, left worse than right. Nasal cannula place, tolerating well. No wheezing. Cardio: Rate: regular rate Rhythm: regular rhythm Other: S1-S2 present without murmur, rub, ectopy GI: Auscultation: normal bowel sounds Other: Abdomen soft, nondistended, nontender. Normoactive bowel sounds in all quadrants. Skin: General skin exam: normal color and no rashes or lesions noted Rashes: no rashes Wounds: no wounds Neuro: General: patient oriented x3, moves all extremities, no meningeal signs and no focal motor deficits Cranial nerves: Yes Equal, round and reactive pupils present Speech: normal speech Sensory Exam: normal sensation Other: A/Ox self, time, place, and situation. Residual right-sided deficits. Extrem: General: normal to inspection and no clubbing, cyanosis or edema Psych: Mental Status: mental status grossly normal Affect: normal affect Attitude: cooperative Other: Flat affect. Fair insight and judgment. Objective Data Vital Signs Vital Signs: Vital Signs - 24 hr 05/07/25 08:40 05/07/25 09:43 05/07/25 12:00 Temperature Pulse Rate 75 64 Respiratory Rate Blood Pressure Pulse Oximetry 92 Oxygen Delivery Nasal Cannula Oxygen Flow Rate 2 Fraction of Inspired Oxygen 28 05/07/25 13:58 05/07/25 16:00 05/07/25 20:00 Temperature 37.1 C Pulse Rate 67 71 Respiratory Rate 18 Blood Pressure 104/85 Pulse Oximetry 92 94 Oxygen Delivery Nasal Cannula Oxygen Flow Rate 2 Fraction of Inspired Oxygen 05/07/25 20:00 05/07/25 22:00 05/08/25 00:00 Temperature 36.6 C Pulse Rate 73 55 L 60 Respiratory Rate 18 Blood Pressure 92/54 L Pulse Oximetry 92 Oxygen Delivery Oxygen Flow Rate Fraction of Inspired Oxygen 05/08/25 04:00 05/08/25 06:00 05/08/25 07:57 Temperature 36.6 C Pulse Rate 61 58 L Respiratory Rate 18 Blood Pressure 147/74 H Pulse Oximetry 94 94 Oxygen Delivery Nasal Cannula Oxygen Flow Rate 2 Fraction of Inspired Oxygen Intake/Output Intake/Output: Intake & Output 05/05/25 05/06/25 05/07/25 05/08/25 23:59 23:59 23:59 23:59 Intake Total 700 960 990.3 Output Total 265 042 2386 100 Balance 600 60 -9.7 -100 Meds/Results Medications: Active Medications Generic Name Dose Route Start Last Admin Trade Name Freq PRN Reason Stop Dose Admin Acetaminophen 650 mg 05/05/25 13:42 05/06/25 21:04 Acetaminophen 325 Mg Tablet PO 650 mg Q6H PRN Administration Mild Pain (1-3) or Fever Albuterol/Ipratropium 3 ml 05/05/25 14:00 05/06/25 05:39 Ipratropium 0.5 Mg/Albuterol Sulfate 2.5 Mg Ampul.Neb 3 Ml INHALATION 3 ml Q6HRT PRN Administration Shortness Of Breath Or Wheezing Alprazolam 0.5 mg 05/06/25 09:00 05/07/25 17:43 Alprazolam (*Crx) 0.5 Mg Tablet PO 0.5 mg BID ELLYN Administration Apixaban 5 mg 05/06/25 09:00 05/07/25 08:22 Apixaban 5 Mg Tablet PO 5 mg DAILY ELLYN Administration Atorvastatin Calcium 10 mg 05/06/25 21:00 05/07/25 20:23 Atorvastatin 10 Mg Tablet PO 10 mg HS ELLYN Administration Benzonatate 100 mg 05/05/25 13:41 05/05/25 20:27 Benzonatate 100 Mg Capsule PO 100 mg TID PRN Administration Cough Calamine 1 applic 05/05/25 22:34 Calamine Lotion 120 Ml Bottle TOPICAL BID PRN rash Dextrose 12.5 gm 05/05/25 22:25 Dextrose 50% 25 Gm/50 Ml Syringe IV PUSH PRN PRN Hypoglycemia Protocol Furosemide 20 mg 05/08/25 09:00 Furosemide 20 Mg Tablet PO DAILY ELLYN Glucagon 1 mg 05/05/25 22:25 Glucagon For Inj 1 Mg Vial IM PRN PRN Hypoglycemia Protocol Glucose 15 gm 05/05/25 22:25 Glucose Oral Gel 15 Gm Of Glucse In 37.5 Gm Tube PO PRN PRN Hypoglycemia Protocol Guaifenesin 600 mg 05/05/25 21:00 05/07/25 20:23 Guaifenesin 12 Hr 600 Mg Tabcr PO 600 mg Q12HR ELLYN Administration Dextrose 1,000 mls @ 100 mls/hr 05/05/25 22:25 Dextrose 5% 1,000 Ml IVPB PRN PRN Hypoglycemia Protocol Insulin Aspart 2 - 5 units 05/06/25 08:00 05/07/25 17:59 Insulin Aspart (*Bkc) 100 Units/Ml SUB-Q Not Given TIDWM ELLYN Protocol Levofloxacin 750 mg 05/05/25 22:35 05/07/25 20:23 Levofloxacin 750 Mg Tablet PO 05/09/25 21:01 750 mg HS ELLYN Administration Lidocaine 1 patch 05/07/25 10:25 05/07/25 11:46 Lidocaine 5% Patch TRANSDERM 1 patch DAILY ELLYN Administration Magnesium Hydroxide 30 ml 05/05/25 22:24 Magnesium Hydroxide Susp 30 Ml Udc PO BID PRN constipation Melatonin 5 mg 05/06/25 21:00 05/07/25 20:23 Melatonin 5 Mg Tablet PO 5 mg HS ELLYN Administration Metoclopramide HCl 10 mg 05/06/25 21:00 05/07/25 20:23 Metoclopramide Hcl 10 Mg Tablet PO 10 mg HS ELLYN Administration Metoclopramide HCl 10 mg 05/06/25 08:00 05/07/25 17:43 Metoclopramide Hcl 10 Mg Tablet PO 10 mg TIDWM ELLYN Administration Metoprolol Tartrate 25 mg 05/06/25 09:00 05/07/25 20:23 Metoprolol Tartrate 25 Mg Tablet PO 25 mg Q12HR ELLYN Administration Mirtazapine 15 mg 05/06/25 21:00 05/07/25 20:23 Mirtazapine 15 Mg Tablet PO 15 mg QHS ELLYN Administration Oxycodone HCl 5 mg 05/05/25 22:24 05/07/25 09:46 Oxycodone Hcl (*Crx) 5 Mg Tab Ir PO 5 mg Q6H PRN Administration pain 7-10 Polyethylene Glycol 17 gm 05/06/25 09:00 05/07/25 08:24 Polyethylene Glycol 3350 17 Gm Powd.Pack PO 17 gm DAILY ELLYN Administration Senna/Docusate Sodium 2 tab 05/05/25 22:33 Senna/Docusate Sodium Tablet PO BID PRN constipation Tizanidine HCl 2 mg 05/06/25 21:00 05/07/25 20:23 Tizanidine Hcl 2 Mg Tablet PO 2 mg QHS ELLYN Administration Vitamin D 25 mcg 05/06/25 09:00 05/07/25 08:23 Cholecalciferol (Vitamin D3) 25 Mcg (1,000 Units) Tablet PO 25 mcg DAILY ELLYN Administration Radiology Results: ITS Impressions Chest X-Ray 05/07/25 12:11 IMPRESSION: Moderate left-sided pleural effusion, as detailed above. Labs Labs: Laboratory Results - last 24 hr 05/07/25 05/07/25 05/07/25 11:50 16:57 20:21 WBC RBC Hgb Hct MCV MCH MCHC RDW Plt Count MPV Sodium Potassium Chloride Carbon Dioxide Anion Gap BUN Creatinine Estim Creat Clear Calc Estimated GFR Glucose POC Capillary Glucose 114 H 139 H 125 H Calcium Total Bilirubin AST ALT Alkaline Phosphatase Total Protein Albumin 05/08/25 05/08/25 05:37 08:06 WBC 10.7 H RBC 4.14 L Hgb 12.2 Hct 39.6 MCV 95.7 MCH 29.5 MCHC 30.8 L RDW 12.4 Plt Count 344 MPV 11.7 H Sodium 138 Potassium 3.5 Chloride 95 L Carbon Dioxide 36 H Anion Gap 7 BUN 13 Creatinine 0.67 L Estim Creat Clear Calc 68 Estimated GFR > 60 Glucose 139 H POC Capillary Glucose 139 H Calcium 9.3 Total Bilirubin 0.4 AST 19 ALT 14 Alkaline Phosphatase 102 Total Protein 7.8 Albumin 3.5
[2025-05-08] MEDS: APIXABAN 5 MG TABLET PO (09:02)
[2025-05-08] MEDS: ALPRAZolam (*CRX) 0.5 MG TABLET PO ×2 (09:02→17:22)
[2025-05-08] MEDS: FUROSEMIDE 20 MG TABLET PO (09:02)
[2025-05-08] MEDS: LIDOCAINE 5% PATCH 1 PATCH TRANSDERM (09:02)
[2025-05-08] MEDS: guaiFENesin 12 HR 600 MG TABCR PO ×2 (09:02→20:34)
[2025-05-08] MEDS: CHOLECALCIFEROL (VITAMIN D3) 25 MCG (1,000 UNITS) TABLET PO (09:02)
[2025-05-08] MEDS: METOCLOPRAMIDE HCL 10 MG TABLET PO ×4 (09:03→20:34)
[2025-05-08] MEDS: METOPROLOL TARTRATE 25 MG TABLET PO ×2 (09:03→20:34)
--- NOTE | 2025-05-08 12:19 | P.PNIM_ITS ---
Progress Note: A&P Assessment and Plan (1) Congestive heart failure: Qualifiers: Heart failure chronicity: acute Heart failure type: unspecified Qualified Code(s): I50.9 - Heart failure, unspecified <Stacey Eddy, [employer] - Last Filed: 05/08/25 15:41> Code(s): I50.9 - Heart failure, unspecified <Stacey Eddy [employer] - Last Filed: 05/08/25 15:41> Status: Acute <Stacey Eddy, [employer] - Last Filed: 05/08/25 15:41> Assessment and Plan: - Symptoms: shortness of breath - Current medications: Lasix 20 mg IV daily, not on diuretics at home - BNP: 716 - Chest XR: Bilateral basal pneumonia, left pleural effusion, and underlying pulmonary edema is highly suggestive - Echo ordered - Monitor vital signs, I&Os, BUN/creatinine, daily weights, neuro status and patient is a fall risk - Monitor serum electrolytes, Keep serum Potassium>4 and serum Magnesium>2 and CBC 7/2 - i/o reviewed. chets xray ordered to be repeated 7/3 - I/O reviewed. Continue to monitor. Chest xray notes redemonstration of moderate left-sided pleural effusion Cardiology consulted due to new onset of chest pain and possible Inferior OR on EKG. Trop <0.012. - cardiology EKG read notes no significant changes compared to 05/05/25 EKG. Recommended continuing apixaban 5mg BID, 20mg Lasix QD and transitiong to Lasix BID as outpatient. <Stacey Eddy APRN - Last Filed: 05/08/25 15:41> - Symptoms: shortness of breath - Current medications: Lasix 20 mg IV daily, not on diuretics at home - BNP: 716 - Chest XR: Bilateral basal pneumonia, left pleural effusion, and underlying pulmonary edema is highly suggestive - Echo ordered - Monitor vital signs, I&Os, BUN/creatinine, daily weights, neuro status and patient is a fall risk - Monitor serum electrolytes, Keep serum Potassium>4 and serum Magnesium>2 and CBC 05/07 - i/o reviewed. chets xray ordered to be repeated 05/08 - I/O reviewed. Continue to monitor. Chest xray notes redemonstration of moderate left-sided pleural effusion Cardiology consulted due to new onset of chest pain and possible Inferior OR on EKG. Trop <0.012. - cardiology EKG read notes no significant changes compared to 05/05/25 EKG. Recommended continuing apixaban 5mg BID, 20mg Lasix QD and transitiong to Lasix BID as outpatient. Continue Lidocaine patch for pain control <Colten Akins, Student - Last Filed: 05/08/25 14:56> (2) Pneumonia: Qualifiers: Laterality: bilateral Lung location: lower lobe of lung Pneumonia type: due to unspecified organism Qualified Code(s): J18.9 - Pneumonia, unspecified organism <Stacey Eddy APRN - Last Filed: 05/08/25 15:41> Code(s): J18.9 - Pneumonia, unspecified organism <Stacey Eddy APRN - Last Filed: 05/08/25 15:41> Status: Acute <Stacey Eddy APRN - Last Filed: 05/08/25 15:41> Assessment and Plan: CXR: Bilateral basal pneumonia, left pleural effusion, and underlying pulmonary edema is highly suggestive - continue outpatient antibiotic Levaquin - Viral PCR: negative for Flu/COVID/RSV - Consider ordering legionella, mycoplasma and pneumococcal - Remains on baseline oxygen supplementation of 2L NC - Monitor vital signs, I&Os, neuro status and patient is a fall risk - Follow WBC, serum electrolytes, temperature curves and cultures - chest pain could be due to pnemonia will repeat chest xray continue antibiotics 05/08: Chest xray notes redemonstration of moderate left-sided pleural effusion Chest pain likely due to pneumonia. Continue Levaquin abx continue lidocaine patch for pain control prn. Remains on baseline oxygen supplementation of 2L NC Monitor vital signs, I&Os, neuro status and patient is a fall risk Follow WBC, serum electrolytes, temperature curves and cultures Start spirometry therapy. Will order PT/OT. Patient baseline is wheelchair with Balwinder lift use. Will order for upper extremity strengthening & condition. Can continue PROM stretching. Continue Lidocaine patch for pain control <Stacey Eddy APRN - Last Filed: 05/08/25 15:41> CXR: Bilateral basal pneumonia, left pleural effusion, and underlying pulmonary edema is highly suggestive - continue outpatient antibiotic Levaquin - Viral PCR: negative for Flu/COVID/RSV - Consider ordering legionella, mycoplasma and pneumococcal - Remains on baseline oxygen supplementation of 2L NC - Monitor vital signs, I&Os, neuro status and patient is a fall risk - Follow WBC, serum electrolytes, temperature curves and cultures - chest pain could be due to pnemonia will repeat chest xray continue antibiotics 05/08: Chest xray notes redemonstration of moderate left-sided pleural effusion Chest pain likely due to pneumonia. Continue Levaquin abx continue lidocaine patch for pain control prn. Remains on baseline oxygen supplementation of 2L NC Monitor vital signs, I&Os, neuro status and patient is a fall risk Follow WBC, serum electrolytes, temperature curves and cultures Start spirometry therapy. Will order PT/OT. Patient baseline is wheelchair with Balwinder lift use. Will order for upper extremity strengthening & condition. Can continue PROM stretching. <Colten Akins, Student - Last Filed: 05/08/25 14:56> (3) COPD (chronic obstructive pulmonary disease): Qualifiers: COPD type: COPD with acute lower respiratory infection Qualified Code(s): J44.0 - Chronic obstructive pulmonary disease with (acute) lower respiratory infection <Stacey Eddy APRN - Last Filed: 05/08/25 15:41> Code(s): J44.9 - Chronic obstructive pulmonary disease, unspecified <Stacey Eddy APRN - Last Filed: 05/08/25 15:41> Status: Chronic <Stacey Eddy APRN - Last Filed: 05/08/25 15:41> Assessment and Plan: Chronic, does not appear in acute exacerbation as no wheezing on exam. Hold steroid course at this time. DuoNebs p.r.n. <Stacey Eddy, [employer] - Last Filed: 05/08/25 15:41> Chronic, does not appear in acute exacerbation as no wheezing on exam. Hold steroid course at this time. DuoNebs p.r.n. 7/3: No wheezing on exam. shortness of breath at baseline per patient. Hold Steroid courses at this time DuoNebs prn. <Justina Isbell - Last Filed: 05/08/25 14:56> (4) Diabetes: Qualifiers: Diabetes mellitus complication status: without complication Diabetes mellitus alf insulin use: without alf use Diabetes mellitus type: type 2 Qualified Code(s): E11.9 - Type 2 diabetes mellitus without complications <Stacey Eddy [employer] - Last Filed: 05/08/25 15:41> Code(s): E11.9 - Type 2 diabetes mellitus without complications <Stacey Eddy, [employer] - Last Filed: 05/08/25 15:41> Status: Acute <Stacey Eddy, [employer] - Last Filed: 05/08/25 15:41> Assessment and Plan: - hypoglycemia protocol - POC blood glucose ACHS - no current home medications, arrived with a glucose of 139 - correct regimen ordered - low dose TIDWM - A1C 6 <Stacey Eddy [employer] - Last Filed: 05/08/25 15:41> - hypoglycemia protocol - POC blood glucose ACHS - no current home medications, arrived with a glucose of 139 - correct regimen ordered - low dose TIDWM - A1C 6 3: continue hypoglycemia protocol. <Justina Isbell - Last Filed: 05/08/25 14:56> (5) Atrial fibrillation: Code(s): I48.91 - Unspecified atrial fibrillation <Stacey Eddy [employer] - Last Filed: 05/08/25 15:41> Status: Acute <Stacey Eddy [employer] - Last Filed: 05/08/25 15:41> Assessment and Plan: - EKG: sinus rhythm - Not on a beta sofía, remains rate controlled - Anticoagulation: scott - Log Processor Operator: Dr. Gallegos 05/08: continue eliquis. Pt is fall and bleeding risk <Stacey Eddy, [employer] - Last Filed: 05/08/25 15:41> - EKG: sinus rhythm - Not on a beta sofía, remains rate controlled - Anticoagulation: scott - Log Processor Operator: Dr. Gallegos 05/08: continue eliquis. See CHF A&P for recent chest pain. <Colten Akins, Student - Last Filed: 05/08/25 14:56> Time Spent With Patient Time with patient: 25 - 35 minutes <Stacey Eddy [employer] - Last Filed: 05/08/25 15:41> Subjective Date/time seen: 05/08/25 12:19 <Stacey Eddy [employer] - Last Filed: 05/08/25 15:41> Interval history: 69 year old female with past medical history of CVA, atrial fibrillation on anticoagulation, and COPD on chronic 2L NC 02 supplementation presents to the hospital for shortness of breath. Patient is lying comfortably in bed. She states her shortness of breath is at baseline and denies cough. she does note increased chest discomfort with her hiccups she has no other complaints denying chest pain, palpitation, nausea/vomiting, and abdominal pain. Patient states that she is wheelchair-bound at the sling in the facility uses a Balwinder lift to transfer. 7/ - pt continues to have chest pain. EKG, trop ordered. card consulted. 3 - pt notes improvement in chest pain. No dizziness with movement but does not move much. Needs lots of encouragement with activity, her baseline is balwinder lift. shortness of breath at baseline. Denies N/V and abdominal pain. Cardiology was consulted due to new onset of chest pain with EKG indicating possible inferior myocardial infarction. Recommendation Lasix 20mg QD with transition to BID at discharge and continuing apixaban 5mg BID. Cardiology has now signed off as of 05/08/25. <Stacey Eddy APRN - Last Filed: 05/08/25 15:41> 69 year old female with past medical history of CVA, atrial fibrillation on anticoagulation, and COPD on chronic 2L NC 02 supplementation presents to the hospital for shortness of breath. Patient is lying comfortably in bed. She states her shortness of breath is at baseline and denies cough. she does note increased chest discomfort with her hiccups she has no other complaints denying chest pain, palpitation, nausea/vomiting, and abdominal pain. Patient states that she is wheelchair-bound at the sling in the facility uses a Balwinder lift to transfer. 7 - pt continues to have chest pain. EKG, trop ordered. card consulted. 05/08 - pt notes improvement in chest pain. shortness of breath at baseline. Denies N/V and abdominal pain. Cardiology was consulted due to new onset of ches t pain with EKG indicating possible inferior myocardial infarction. They reviewed EKG, evaulated the patient, and recommended Lasix 20mg QD with transition to BID at discharge and continuing apixaban 5mg BID. Cardiology has now signed off as of 05/08/25. <Colten Akins, Student - Last Filed: 05/08/25 14:56> Review of Systems Review of Systems: All systems reviewed & are unremarkable except as noted in HPI and below <Stacey Eddy, [employer] - Last Filed: 05/08/25 15:41> Exam Narrative: AF HR 67 RR 18 SpO2 92 2LNC baseline BP 107/76 General: female in no acute respiratory distress who is nontoxic appearing, lying semi recumbent in bed. HEENT: Normocephalic. Atraumatic. Extraocular movement intact. Sclera clear and anicteric. No facial asymmetry. Chest: Lungs are crackles to auscultation bilaterally. No wheezes. CV: Heart was regular rate and rhythm. Abd: Abdomen was soft. Nontender. Nondistended. Positive bowel sounds. Ext: No clubbing, cyanosis, or edema. DP pulses bilaterally. Neuro: Patient is alert. Speech is clear. Left-sided deficits from prior CVA. <Stacey Eddy [employer] - Last Filed: 05/08/25 15:41> Const: General: comfortable and no acute distress <Stacey Cardoso Surjit [employer] - Last Filed: 05/08/25 15:41> Other: , female, chronically ill-appearing, nontoxic appearance <Stacey Eddy [employer] - Last Filed: 05/08/25 15:41> HENMT: Face/Nose/Sinus: Normal nares present <Stacey Eddy [employer] - Last Filed: 05/08/25 15:41> Mouth: Yes moist mucous membranes <Stacey Eddy [employer] - Last Filed: 05/08/25 15:41> Eyes: General: appearance normal, both eyes and all related structures <Stacey Eddy [employer] - Last Filed: 05/08/25 15:41> Sclera: sclerae normal <Stacey Eddy [employer] - Last Filed: 05/08/25 15:41> Pupils: Equal, round and reactive pupils present <Stacey Eddy [employer] - Last Filed: 05/08/25 15:41> EOM: EOMs intact bilaterally <Stacey Eddy [employer] - Last Filed: 05/08/25 15:41> Resp: Effort & Inspection: normal respiratory effort <Stacey Eddy [employer] - Last Filed: 05/08/25 15:41> Other: Bibasilar crackles, left worse than right. Nasal cannula place, tolerating well. No wheezing. <Stacey Eddy [employer] - Last Filed: 05/08/25 15:41> Cardio: Rate: regular rate <Stacey Eddy [employer] - Last Filed: 05/08/25 15:41> Rhythm: regular rhythm <Stacey Eddy [employer] - Last Filed: 05/08/25 15:41> Other: S1-S2 present without murmur, rub, ectopy <Stacey Eddy [employer] - Last Filed: 05/08/25 15:41> GI: Other: Abdomen soft, nondistended, nontender. Normoactive bowel sounds in all quadrants. <Stacey Cardoso Surjit [employer] - Last Filed: 05/08/25 15:41> Skin: General skin exam: normal color and no rashes or lesions noted <Stacey Eddy [employer] - Last Filed: 05/08/25 15:41> Wounds: no wounds <Stacey Eddy [employer] - Last Filed: 05/08/25 15:41> Neuro: Cranial nerves: Yes Equal, round and reactive pupils present <Stacey Eddy [employer] - Last Filed: 05/08/25 15:41> Speech: normal speech <Stacey Eddy [employer] - Last Filed: 05/08/25 15:41> Sensory Exam: normal sensation <Stacey Eddy [employer] - Last Filed: 05/08/25 15:41> Other: A/Ox self, time, place, and situation. Residual right-sided deficits. <Stacey Eddy [employer] - Last Filed: 05/08/25 15:41> Extrem: General: normal to inspection <Staceypreet Eddy [employer] - Last Filed: 05/08/25 15:41> Psych: Mental Status: mental status grossly normal <Stacey Eddy [employer] - Last Filed: 05/08/25 15:41> Other: Flat affect. Fair insight and judgment. <Stacey Eddy [employer] - Last Filed: 05/08/25 15:41> Objective Data Vital Signs Vital Signs: Vital Signs - 24 hr 05/07/25 13:58 05/07/25 16:00 05/07/25 20:00 Temperature 98.8 F Pulse Rate 67 71 Respiratory Rate 18 Blood Pressure 104/85 Pulse Oximetry 92 94 Oxygen Delivery Nasal Cannula Oxygen Flow Rate 2 05/07/25 20:00 05/07/25 22:00 05/08/25 00:00 Temperature 97.8 F Pulse Rate 73 55 L 60 Respiratory Rate 18 Blood Pressure 92/54 L Pulse Oximetry 92 Oxygen Delivery Oxygen Flow Rate 05/08/25 04:00 05/08/25 06:00 05/08/25 07:57 Temperature 97.8 F Pulse Rate 61 58 L Respiratory Rate 18 Blood Pressure 147/74 H Pulse Oximetry 94 94 Oxygen Delivery Nasal Cannula Oxygen Flow Rate 2 05/08/25 09:03 05/08/25 09:03 05/08/25 09:03 Temperature Pulse Rate 74 74 Respiratory Rate Blood Pressure Pulse Oximetry 95 Oxygen Delivery Nasal Cannula Oxygen Flow Rate 2 <Stacey Eddy, [employer] - Last Filed: 05/08/25 15:41> Intake/Output Intake/Output: Intake & Output 05/05/25 05/06/25 05/07/25 05/08/25 23:59 23:59 23:59 23:59 Intake Total 700 960 990.3 480 Output Total 574 663 3626 100 Balance 600 60 -9.7 380 <Stacey Eddy, [employer] - Last Filed: 05/08/25 15:41> Meds/Results Medications: Active Medications Generic Name Dose Route Start Last Admin Trade Name Freq PRN Reason Stop Dose Admin Acetaminophen 650 mg 05/05/25 13:42 05/06/25 21:04 Acetaminophen 325 Mg Tablet PO 650 mg Q6H PRN Administration Mild Pain (1-3) or Fever Albuterol/Ipratropium 3 ml 05/05/25 14:00 05/06/25 05:39 Ipratropium 0.5 Mg/Albuterol Sulfate 2.5 Mg Ampul.Neb 3 Ml INHALATION 3 ml Q6HRT PRN Administration Shortness Of Breath Or Wheezing Alprazolam 0.5 mg 05/06/25 09:00 05/08/25 09:02 Alprazolam (*Crx) 0.5 Mg Tablet PO 0.5 mg BID ELLYN Administration Apixaban 5 mg 05/06/25 09:00 05/08/25 09:02 Apixaban 5 Mg Tablet PO 5 mg DAILY ELLYN Administration Atorvastatin Calcium 10 mg 05/06/25 21:00 05/07/25 20:23 Atorvastatin 10 Mg Tablet PO 10 mg HS ELLYN Administration Benzonatate 100 mg 05/05/25 13:41 05/05/25 20:27 Benzonatate 100 Mg Capsule PO 100 mg TID PRN Administration Cough Calamine 1 applic 05/05/25 22:34 Calamine Lotion 120 Ml Bottle TOPICAL BID PRN rash Dextrose 12.5 gm 05/05/25 22:25 Dextrose 50% 25 Gm/50 Ml Syringe IV PUSH PRN PRN Hypoglycemia Protocol Furosemide 20 mg 07/03/25 09:00 05/08/25 09:02 Furosemide 20 Mg Tablet PO 20 mg DAILY ELLYN Administration Glucagon 1 mg 05/05/25 22:25 Glucagon For Inj 1 Mg Vial IM PRN PRN Hypoglycemia Protocol Glucose 15 gm 05/05/25 22:25 Glucose Oral Gel 15 Gm Of Glucse In 37.5 Gm Tube PO PRN PRN Hypoglycemia Protocol Guaifenesin 600 mg 05/05/25 21:00 05/08/25 09:02 Guaifenesin 12 Hr 600 Mg Tabcr PO 600 mg Q12HR ELLYN Administration Dextrose 1,000 mls @ 100 mls/hr 05/05/25 22:25 Dextrose 5% 1,000 Ml IVPB PRN PRN Hypoglycemia Protocol Insulin Aspart 2 - 5 units 05/06/25 08:00 05/08/25 12:10 Insulin Aspart (*Bkc) 100 Units/Ml SUB-Q Not Given TIDWM ELLYN Protocol Levofloxacin 750 mg 05/05/25 22:35 05/07/25 20:23 Levofloxacin 750 Mg Tablet PO 05/09/25 21:01 750 mg HS ELLYN Administration Lidocaine 1 patch 05/07/25 10:25 05/08/25 09:02 Lidocaine 5% Patch TRANSDERM 1 patch DAILY ELLYN Administration Magnesium Hydroxide 30 ml 05/05/25 22:24 Magnesium Hydroxide Susp 30 Ml Udc PO BID PRN constipation Melatonin 5 mg 05/06/25 21:00 05/07/25 20:23 Melatonin 5 Mg Tablet PO 5 mg HS ELLYN Administration Metoclopramide HCl 10 mg 05/06/25 21:00 05/07/25 20:23 Metoclopramide Hcl 10 Mg Tablet PO 10 mg HS ELLYN Administration Metoclopramide HCl 10 mg 05/06/25 08:00 05/08/25 09:03 Metoclopramide Hcl 10 Mg Tablet PO 10 mg TIDWM ELLYN Administration Metoprolol Tartrate 25 mg 05/06/25 09:00 05/08/25 09:03 Metoprolol Tartrate 25 Mg Tablet PO 25 mg Q12HR ELLYN Administration Mirtazapine 15 mg 05/06/25 21:00 05/07/25 20:23 Mirtazapine 15 Mg Tablet PO 15 mg QHS ELLYN Administration Oxycodone HCl 5 mg 05/05/25 22:24 05/07/25 09:46 Oxycodone Hcl (*Crx) 5 Mg Tab Ir PO 5 mg Q6H PRN Administration pain 7-10 Polyethylene Glycol 17 gm 05/06/25 09:00 05/08/25 09:02 Polyethylene Glycol 3350 17 Gm Powd.Pack PO 17 gm DAILY ELLYN Administration Senna/Docusate Sodium 2 tab 05/05/25 22:33 Senna/Docusate Sodium Tablet PO BID PRN constipation Tizanidine HCl 2 mg 05/06/25 21:00 05/07/25 20:23 Tizanidine Hcl 2 Mg Tablet PO 2 mg QHS ELLYN Administration Vitamin D 25 mcg 05/06/25 09:00 05/08/25 09:02 Cholecalciferol (Vitamin D3) 25 Mcg (1,000 Units) Tablet PO 25 mcg DAILY ELLYN Administration <Stacey Eddy [employer] - Last Filed: 05/08/25 15:41> Radiology Results: ITS Impressions Chest X-Ray 05/07/25 12:11 IMPRESSION: Moderate left-sided pleural effusion, as detailed above. <Stacey Eddy [employer] - Last Filed: 05/08/25 15:41> Labs Labs: Laboratory Results - last 24 hr 05/07/25 05/07/25 05/08/25 16:57 20:21 05:37 WBC 10.7 H RBC 4.14 L Hgb 12.2 Hct 39.6 MCV 95.7 MCH 29.5 MCHC 30.8 L RDW 12.4 Plt Count 344 MPV 11.7 H Sodium 138 Potassium 3.5 Chloride 95 L Carbon Dioxide 36 H Anion Gap 7 BUN 13 Creatinine 0.67 L Estim Creat Clear Calc 68 Estimated GFR > 60 Glucose 139 H POC Capillary Glucose 139 H 125 H Calcium 9.3 Total Bilirubin 0.4 AST 19 ALT 14 Alkaline Phosphatase 102 Total Protein 7.8 Albumin 3.5 05/08/25 05/08/25 08:06 11:54 WBC RBC Hgb Hct MCV MCH MCHC RDW Plt Count MPV Sodium Potassium Chloride Carbon Dioxide Anion Gap BUN Creatinine Estim Creat Clear Calc Estimated GFR Glucose POC Capillary Glucose 139 H 129 H Calcium Total Bilirubin AST ALT Alkaline Phosphatase Total Protein Albumin <Stacey Eddy [employer] - Last Filed: 05/08/25 15:41> Quality VTE Prophylaxis VTE prophylaxis: pharmacologic ordered <Stacey Eddy, [employer] - Last Filed: 05/08/25 15:41>
--- NOTE | 2025-05-08 14:37 | PCPTNOTE ---
Pt dependent at baseline (francie lift/wheelchair). Spoke with current hospitalist who OK removal of therapy orders and to speak with nursing regarding transferring pt OOB. Nursing aware.
[2025-05-08] MEDS: oxyCODONE HCL (*CRX) 5 MG TAB IR PO (17:22)
[2025-05-08] MEDS: ACETAMINOPHEN 325 MG TABLET 650 MG PO (20:31)
[2025-05-08] MEDS: MIRTAZAPINE 15 MG TABLET PO (20:33)
[2025-05-08] MEDS: MELATONIN 5 MG TABLET PO (20:34)
[2025-05-08] MEDS: TIZANIDINE HCL 2 MG TABLET PO (20:34)
[2025-05-08] MEDS: ATORVASTATIN 10 MG TABLET PO (20:34)
[2025-05-09] VITALS (7 sets, daily range): BP systolic 106–108; BP diastolic 52–54; PULSE 51–65; RESP 16; TEMP 37.1; O2SAT 91–98
[2025-05-09 05:43] LABS: Hematocrit 38.7 % (37.0-47.0); Hemoglobin 11.6 g/dL (12.0-15.0); Mean Corpuscular HGB Conc 30.0 g/dl (32-36); Mean Corpuscular Hemoglobin 29.2 pg (26-34); Mean Corpuscular Volume 97.5 fl (80-100); Platelet Count Result 332 k/mm3 (150-375); Red Blood Count 3.97 M/mm3 (4.2-5.4); White Blood Count 7.7 K/mm3 (4.5-10.0)
[2025-05-09 05:58] LABS: Alanine Aminotransferase 11 U/L (6-35); Albumin Level 3.3 g/dL (3.5-5.1); Alkaline Phosphatase 86 U/L (38-126); Anion Gap 6 mmol/L (4-12); Aspartate Amino Transferase 21 U/L (14-36); Bilirubin,Total 0.4 mg/dL (0.2-1.3); Blood Urea Nitrogen 13 mg/dL (7-17); Calcium 8.9 mg/dL (8.4-10.2); Carbon Dioxide 34 mmol/L (22-30); Chloride 97 mmol/L (98-107); Estimated CRCL calculation 84 ml/min; Estimated Glomerular Filt Rate > 60; Glucose 134 mg/dL (65-110); Potassium 3.7 mmol/L (3.4-5.0); Sodium 137 mmol/L (137-145); Total Protein 7.4 g/dL (6.3-8.2)
[2025-05-09] MEDS: guaiFENesin 12 HR 600 MG TABCR PO (08:30)
[2025-05-09] MEDS: FUROSEMIDE 20 MG TABLET PO (08:30)
[2025-05-09] MEDS: CHOLECALCIFEROL (VITAMIN D3) 25 MCG (1,000 UNITS) TABLET PO (08:30)
[2025-05-09] MEDS: APIXABAN 5 MG TABLET PO (08:30)
[2025-05-09] MEDS: METOCLOPRAMIDE HCL 10 MG TABLET PO (08:30)
[2025-05-09] MEDS: LIDOCAINE 5% PATCH 1 PATCH TRANSDERM (08:30)
[2025-05-09] MEDS: ALPRAZolam (*CRX) 0.5 MG TABLET PO (08:30)
[2025-05-09] MEDS: METOPROLOL TARTRATE 25 MG TABLET PO (08:33)
--- NOTE | 2025-05-09 10:21 | P.DS_ITS ---
DS: Admitting Diagnosis Discharge Date 05/09 Admitting Diagnosis sob, pneumonia DS: Discharge Diagnosis Discharge Diagnosis (1) Congestive heart failure: Qualifiers: Heart failure chronicity: acute Heart failure type: unspecified Qualified Code(s): I50.9 - Heart failure, unspecified Code(s): I50.9 - Heart failure, unspecified Status: Acute Assessment and Plan: (2) Pneumonia: Qualifiers: Laterality: bilateral Lung location: lower lobe of lung Pneumonia type: due to unspecified organism Qualified Code(s): J18.9 - Pneumonia, unspecified organism Code(s): J18.9 - Pneumonia, unspecified organism Status: Acute (3) COPD (chronic obstructive pulmonary disease): Qualifiers: COPD type: COPD with acute lower respiratory infection Qualified Code(s): J44.0 - Chronic obstructive pulmonary disease with (acute) lower respiratory infection Code(s): J44.9 - Chronic obstructive pulmonary disease, unspecified Status: Chronic (4) Diabetes: Qualifiers: Diabetes mellitus complication status: without complication Diabetes mellitus long wall shear operator insulin use: without long wall shear operator use Diabetes mellitus type: type 2 Qualified Code(s): E11.9 - Type 2 diabetes mellitus without complications Code(s): E11.9 - Type 2 diabetes mellitus without complications Status: Acute (5) Atrial fibrillation: Code(s): I48.91 - Unspecified atrial fibrillation Status: Acute DS: Summary Hospital Course Hospital Course: 69 year old female with past medical history of CVA, atrial fibrillation on anticoagulation, and COPD on chronic 2L NC 02 supplementation presents to the hospital for shortness of breath. Patient is lying comfortably in bed. She states her shortness of breath is at baseline and denies cough. she does note increased chest discomfort with her hiccups she has no other complaints denying chest pain, palpitation, nausea/vomiting, and abdominal pain. Patient states that she is wheelchair-bound at the sling in the facility uses a Balwinder lift to transfer. # chf - Symptoms: shortness of breath - Current medications: Lasix 20 mg IV daily, not on diuretics at home - BNP: 716 - Chest XR: Bilateral basal pneumonia, left pleural effusion, and underlying pulmonary edema is highly suggestive Cardiology consulted due to new onset of chest pain and possible Inferior AR on EKG. Trop <0.012. - cardiology EKG read notes no significant changes compared to 05/05/25 EKG. Recommended continuing apixaban 5mg BID, 20mg Lasix QD and transiting to Lasix twice weekly as outpatient as an outpt. # pneumonia CXR: Bilateral basal pneumonia, left pleural effusion, and underlying pulmonary edema is highly suggestive - continue outpatient antibiotic Levaquin - Viral PCR: negative for Flu/COVID/RSV - chest pain could be due to pnemonia continue antibiotics- has one more dose of levaquin 05/08: Chest xray notes remonstration of moderate left-sided pleural effusion Chest pain likely due to pneumonia. Continue Levaquin abx continue lidocaine patch for pain control prn. Remains on baseline oxygen supplementation of 2L NC Monitor vital signs, I&Os, neuro status and patient is a fall risk Follow WBC, serum electrolytes, temperature curves and cultures Start spirometry therapy. Will order PT/OT. Patient baseline is wheelchair with Balwinder lift use. Will order for upper extremity strengthening & condition. Can continue PROM stretching. Continue Lidocaine patch for pain control 05/09 improving sob still present but better contineu to do IS and up tot he chair if able # t2dm - hypoglycemia protocol - POC blood glucose ACHS - no current home medications, arrived with a glucose of 139 - correct regimen ordered - low dose TIDWM - A1C 6 -supportive measures # afib - EKG: sinus rhythm - Not on a beta sofía, remains rate controlled - Anticoagulation: eliquis - Frame Stylist: Dr. Sapp Pt is fall and bleeding risk Status at Discharge Functional status at discharge: bed bound Overall status at discharge: patient is progressing back to baseline Time Spent with Patient Time attestation: Total time spent providing and/or coordinating discharge services: Time spent: Greater than 30 minutes Exam Narrative: General: female in no acute respiratory distress who is nontoxic appearing, lying semi recumbent in bed. HEENT: Normocephalic. Atraumatic. Extraocular movement intact. Sclera clear and anicteric. No facial asymmetry. Chest: Lungs are crackles to auscultation bilaterally. No wheezes. CV: Heart was regular rate and rhythm. Abd: Abdomen was soft. Nontender. Nondistended. Positive bowel sounds. Ext: No clubbing, cyanosis, or edema. DP pulses bilaterally. Neuro: Patient is alert. Speech is clear. Left-sided deficits from prior CVA. Const: General: comfortable and no acute distress Other: , female, chronically ill-appearing, nontoxic appearance HENMT: Face/Nose/Sinus: Normal nares present Mouth: Yes moist mucous membranes Eyes: General: appearance normal, both eyes and all related structures Sclera: sclerae normal Pupils: Equal, round and reactive pupils present EOM: EOMs intact bilaterally Resp: Effort & Inspection: normal respiratory effort Other: Bibasilar crackles, left worse than right. Nasal cannula place, tolerating well. No wheezing. Cardio: Rate: regular rate Rhythm: regular rhythm Other: S1-S2 present without murmur, rub, ectopy GI: Other: Abdomen soft, nondistended, nontender. Normoactive bowel sounds in all quadrants. Skin: General skin exam: normal color and no rashes or lesions noted Wounds: no wounds Neuro: Cranial nerves: Yes Equal, round and reactive pupils present Speech: normal speech Sensory Exam: normal sensation Other: A/Ox self, time, place, and situation. Residual right-sided deficits. Extrem: General: normal to inspection Psych: Mental Status: mental status grossly normal Other: Flat affect. Fair insight and judgment. DS: Data Data Completed and Pending Labs on day of discharge: Labs from last 24 hours 05/09/25 05/09/25 05/08/25 08:11 05:29 21:19 WBC 7.7 RBC 3.97 L Hgb 11.6 L Hct 38.7 MCV 97.5 MCH 29.2 MCHC 30.0 L RDW 12.6 Plt Count 332 MPV 11.9 H Sodium 137 Potassium 3.7 Chloride 97 L Carbon Dioxide 34 H Anion Gap 6 BUN 13 Creatinine 0.53 L Estim Creat Clear Calc 84 Estimated GFR > 60 Glucose 134 H POC Capillary Glucose 139 H 123 H Calcium 8.9 Total Bilirubin 0.4 AST 21 ALT 11 Alkaline Phosphatase 86 Total Protein 7.4 Albumin 3.3 L 05/08/25 05/08/25 16:51 11:54 WBC RBC Hgb Hct MCV MCH MCHC RDW Plt Count MPV Sodium Potassium Chloride Carbon Dioxide Anion Gap BUN Creatinine Estim Creat Clear Calc Estimated GFR Glucose POC Capillary Glucose 140 H 129 H Calcium Total Bilirubin AST ALT Alkaline Phosphatase Total Protein Albumin Discharge Plan Discharge Attending physician on discharge: Dionte Perez Consulting providers: Thi Key Discharging Clinician: Stacey Eddy Patient Disposition: [facility] Skilled Nursing/Asst Living Activity: march shower Diet: heart healthy Wound Care Instructions: follow printed instructions Discharge Instructions: you were admitted for pneumonia. Received antibiotics. There is one more dose left to take tonight, 05/09 at 9pm. Cardiology saw you and no acute interventions were needed. Patient Instructions: Antibiotic Form Patient Language: Romanian Stand Alone Forms: General Discharge Information Discharge Medications: New furosemide 20 mg Tablet 20 mg PO 2XW Qty: 60 0RF Continued alprazolam 0.5 mg tablet 0.5 mg PO BID Eliquis 5 mg tablet 5 mg PO DAILY metoclopramide HCl 10 mg tablet 10 mg PO TIDWM metoprolol tartrate 25 mg tablet 25 mg PO BID mirtazapine 15 mg tablet 15 mg PO QHS tizanidine 2 mg tablet 2 mg PO QHS acetaminophen 325 mg capsule 650 mg PO Q4H albuterol sulfate 1.25 mg/3 mL solution for nebulization 1.25 mg inhalation Q6H PRN (Reason: shortness of breath or wheezing) calamine Lotion 1 ea topical BID PRN (Reason: rash) cholecalciferol (vitamin D3) 25 mcg (1,000 unit) capsule 1,000 unit PO DAILY dicyclomine 20 mg tablet 20 mg PO QID PRN (Reason: diarrhea) polyethylene glycol 3350 [ClearLax] 17 gram/dose powder 17 g PO DAILY ipratropium-albuterol 0.5 mg-3 mg(2.5 mg base)/3 mL solution for nebulization 3 ml inhalation BID atorvastatin 10 mg tablet 10 mg PO HS melatonin 5 mg capsule 5 mg PO HS magnesium hydroxide [Milk of Magnesia] 400 mg/5 mL suspension 30 ml PO BID PRN (Reason: constipation) metoclopramide HCl 5 mg tablet 10 mg PO HS senna-docusate sodium Capsule 2 cap PO BID PRN (Reason: constipation) albuterol sulfate [Ventolin HFA] 90 mcg/actuation HFA aerosol inhaler 1 puff inhalation QID PRN (Reason: shortness of breath or wheezing) levofloxacin 750 mg tablet 750 mg PO Q24H Qty: 1 0RF Patient Comments: end date 05/09/25 oxycodone 5 mg tablet 5 mg PO Q6H PRN (Reason: pain) Qty: 10 0RF Date of admission: 05/06/25 10:13 Primary Care Provider: PHYSICIAN NOT ON STAFF,NONSTAFF Admitting Provider: Demetrio Ingram Attending physician on admission: Adilene Perry Condition: Stable Quality VTE Prophylaxis VTE prophylaxis: pharmacologic ordered Hospitalist MIPS Heart Failure (Exclusion) Patient has history of Heart Transplant or Left Ventricular Assistive Device?: No IF YES, STOP HERE Heart Failure (Qualifier) Patient has current or prior documentation of LVEF less than or equal to 40%, or mod/servere depressed LVSF?: No IF NO, STOP HERE
== END 2025-05-09 12:30 | DRG 194 ==
LOC: ANHED 12:58 → ANH3MED 13:18
PROVIDERS: Nurse Practitioner; Student in an Organized Health Care Education/Training Program; Admitting Provider Family Medicine; Emergency Provider Emergency Medicine; Visit Provider Internal Medicine
DX: J18.9 Pneumonia, unspecified organism (principal); J44.0 Chronic obstructive pulmonary disease with (acute) lower respiratory infection; I50.9 Heart failure, unspecified; I48.91 Unspecified atrial fibrillation; D64.9 Anemia, unspecified; F41.8 Other specified anxiety disorders; E11.22 Type 2 diabetes mellitus with diabetic chronic kidney disease; I25.10 Atherosclerotic heart disease of native coronary artery without angina pectoris; E87.6 Hypokalemia; E78.5 Hyperlipidemia, unspecified; Z99.81 Dependence on supplemental oxygen; Z86.73 Personal history of transient ischemic attack (TIA), and cerebral infarction without residual deficits; Z90.710 Acquired absence of both cervix and uterus; Z87.891 Personal history of nicotine dependence; Z79.01 Long term (current) use of anticoagulants; Z99.3 Dependence on wheelchair
CPT/HCPCS: 36415; 71045; 71046; 80048; 80053; 82948; 83036; 83880; 84484; 85025; 85027; 93005; 94640; 96374; 96375; 96376; 99285; A9270; C8929; G0378; J1938; J2270; J3480; J7040; Q9957

== ENCOUNTER 2025-07-22 11:14 | Outpatient (CLI) | payer MEDICARE, MEDICAID, SELFPAY ==
--- OUTSIDE RECORDS SUMMARY | 2001-09-06 10:15 | XMS_ITS | Continuity of Care Document ---
Author Organization Formerly [facility] Address [phone] Phone Care Team Providers Care Hadoop Engineer Name Role Phone Thompson OD, Ortiz Unavailable Unavailable Advance Directives Directive Yes / No Effective Date File Name No Information Encounters Encounter Description Practice Location Reason(s) For Visit Diagnoses Date Provider Providers Copied on Encounter [facility], [address], , [id number], [place] tel:[phone] [facility] No Information Nov-0 1-200 1 Thompson OD Ortiz. [address] , [address], [place], [address], [place]. tel:[phone] Family History Family Member Type Diagnosis Age At Onset No Information Payers Payer name Insurance type Covered green party ID Authoriza tion(s) Medicaid [facility] [id number] Social History Type Description Quantity Date Captured Comments Sex Female Smoking Status No Information Chief Complaint And Reason For Visit No Information Reason For Referral Reason For Referral No Information History Of Present Illness Encounter Date Complaint History Of Prese nt Illness No Information Functional Status Date Functional Assessmen t No Information Instructions Date Instruction Additional Infor mation No Information Assessments Type Assessment Date No Information Patient Care Teams Name Effective Dates (start - stop) Status Members No Information
--- NOTE | ~2025-07-22 | NM_ITS ---
EXAMINATION: NM bone scan whole body DATE: 07/22/2025 14:39 INDICATION: Left upper lobe malignant lung cancer TECHNIQUE: 25.4 mCi Tc-99m HDP was administered intravenously. Delayed whole- body scintigrams were obtained. COMPARISON: CT chest, abdomen and pelvis dated 07/22/25, CT chest dated 01/29/2025 and PET/CT dated 04/01/2025 FINDINGS: There is a small region of increased uptake in the upper thoracic spine projecting cephalad to the manubrium on the frontal projection. This appears to correspond to a recent mild T3 compression fracture with superior endplate Schmorl's node. This also at the same level as a previous noted FDG avid lytic bone lesion with erosion of the cortex at the left base of the T3 spinous process which is suspicious for metastatic disease. No other suspicious foci of abnormal bone uptake. There is prominent skin contamination projecting over the region of the left groin. IMPRESSION: 1. . Increased uptake in the region of T3 which could be due to a suspected metastatic lesion at the base of the spinous process with coarse benign lytic lesion on CT from earlier in the day and with increased FDG uptake at this location on prior PET study dated 04/01/2025. This could also be due to recent- appearing mild T3 compression fracture and superior endplate Schmorl's node. 2. No other bone lesions suspicious for metastatic disease. Reviewed, dictated and finalized at location A. IMPRESSION: 1. . Increased uptake in the region of T3 which could be due to a suspected met astatic lesion at the base of the spinous process with coarse benign lytic lesi on on CT from earlier in the day and with increased FDG uptake at this location on prior PET study dated 04/01/2025. This could also be due to recent-appearing mild T3 compression fracture and superior endplate Schmorl's node. 2. No other bone lesions suspicious for metastatic disease.
--- NOTE | ~2025-07-22 | CT_ITS ---
EXAMINATION: CT chest abdomen pelvis w con DATE: 07/22/2025 12:41 INDICATION: Malignant neoplasm of upper lobe of left lung. TECHNIQUE: Computed tomography (CT) of the chest, abdomen, and pelvis was performed with 100 mL Omnipaque 350 intravenous contrast. Automated exposure control and iterative reconstruction technique were employed. The dose-length product was 904.01 mGy-cm. COMPARISON: Chest CT 01/29/2025 FINDINGS: CHEST CT: There is moderate emphysema. There are changes of left upper lobectomy. There are approximately 6 nodules in right lung measuring up to 1.3 cm in right lower lobe that measured 1.4 cm on 01/29/2025. A 1.1 cm nodule in right upper lobe previously measured 0.8 cm. No pleural effusion. There is a 13 mm nodule in right thyroid lobe, likely not clinically significant. There is no pulmonary embolus. There is thoracic kyphosis and severe spondylosis. There is mild chronic anterior wedging of multiple vertebral bodies consistent with Schmorl's nodes. There is a lytic lesion in the T3 posterior elements. ABDOMEN/PELVIS CT: There are cysts in the liver measuring up to 13 mm. The gallbladder, spleen, pancreas, adrenal glands, and kidneys are normal. There is diverticulosis of the colon without evidence of diverticulitis. The appendix is normal. There are no dilated loops of bowel. There are no pathologically enlarged lymph nodes. There is no free intraperitoneal fluid. There is a gastrostomy tube in expected position. There is mild lumbar spondylosis. There are Schmorl's nodes at many levels. IMPRESSION: 1. Stable pulmonary nodules and T3 lytic lesion, consistent with metastatic disease. 2. Moderate emphysema. 3. Left upper lobectomy. Reviewed, dictated and finalized at location E. IMPRESSION: 1. Stable pulmonary nodules and T3 lytic lesion, consistent with metastatic dis ease. 2. Moderate emphysema. 3. Left upper lobectomy.
[2025-07-22 12:05] LABS: Estimated Glomerular Filt Rate > 60
--- OUTSIDE RECORDS SUMMARY | 2025-07-22 13:20 | XMS_ITS | Encounter Summary ---
Author Organization [facility] Health Address [address] [place] [address] [place] [address] Care Team Providers Care Assistant Commissioner Name Role Phone Daly Redmond DO Primary Care Provider [phone] Encounter Details Date Type Department Care Team (Late st Contact Info) Description 04/19/2019 Telephone [facility] [address] [place] [address] Sowmya Kellogg RN Social History Tobacco Use Types Packs/Day Years Used Date Smoking Tobacco: Every Day Cigarettes 1 45 Smokeless Tobacco: Never Alcohol Use Standard Drinks/Week Comments Yes 1 (1 standard drink = 0.6 oz pur e alcohol) Comments Unknown Sex and Gender Information Value Date Recorded Sex Assigned at Not on file Legal Sex Female 5:50 AM POST DOCTORAL FELLOW Gender Identity Not on file Sexual Orientation [...] Under Investigation 11/21/2023 11/21/2023 11/21/2023 12:30 PM POST DOCTORAL FELLOW documented as of this encounter Care Teams Assistant Commissioner Relationship Specialty Start Date End Date Daly Redmond DO [address] [place] [address] PCP - General 03/06/19 documented as of this encounter
--- OUTSIDE RECORDS SUMMARY | 2025-07-22 13:20 | XMS_ITS | Patient Health Record ---
Author Organization [facility] Address [address] [place] [address] Care Team Providers Care Senior Piping Designer Name Role Phone Cris Doris Primary Care Provider [phone] Allergies Allergen (clinical drug ingredient) Drug/Non Drug [...] do you smoke? 6-10 Section Notes: Family Bkdhqok-xknnvb-orphesgppn, brother had MS and depression and addiction Occupational History-accounting Eduation Giiutoj-qlxurua-Nzbjehth degree Family Itstele-vogevs-rbyrswkiyi, brother had MS and depression and addiction Occupational History-accounting Eduation Epiorxj-kyjunkn-Oahylkmi degree Family Nitubtw-jyzdtf-dtpzkemuiz, brother had MS and depression and addiction Occupational History-accounting Eduation Klwcztz-shvhshr-Lmincejw degree Family Qbyllpw-xhmcvp-pqilptudyl, brother had MS and depression and addiction Occupational History-accounting Eduation Amshzqo-lxshbyz-Rqehwsmz degree Family Uaqovhl-lyatwn-sugtudxxba, brother had MS and depression and addiction Occupational History-accounting Eduation Frwgqcr-dkaitwy-Kzismkjw degree Family Ojvlffw-lpoafe-glzrwvenle, brother had MS and depression and addiction Occupational History-accounting Eduation Kuycxxy-czmijkh-Wyrgcmbb degree Family Pjruuvt-rktlnc-tuelvoznrv, brother had MS and depression and addiction Occupational History-accounting Eduation Srurttm-ikjavui-Ecuvzknv degree Family Htarxyy-ueipsy-shmytzkpbk, brother had MS and depression and addiction Occupational History-accounting Eduation Nbpynwp-ntpziie-Cxelfggd degree Family Vdvmnxm-dgdktm-bgtlyxjdtp, brother had MS and depression and addiction Occupational History-accounting Eduation Pcnuaiv-zvzwhse-Rceeomkl degree Family Pfzqxdp-zqogsq-tvgisnfsun, brother had MS and depression and addiction Occupational History-accounting Eduation Glnkeij-safucwp-Fldtznkh degree Family Cljqkcd-cbaynh-gboiewemzl, brother had MS and depression and addiction Occupational History-accounting Eduation Guvejlw-lutiwgm-Nrmjgpto degree Family Wysfjkq-pvypnt-rznfhwetlr, brother had MS and depression and addiction Occupational History-accounting Eduation Sozgqly-vafpjdt-Ijzcdemm degree Family Clfxhng-mzdzds-wqldtxywnb, brother had MS and depression and addiction Occupational History-accounting Eduation Phzoosu-ldmnfjp-Hfedkrra degree Family Cqlpubr-azneow-ixdsajjnkq, brother had MS and depression and addiction Occupational History-accounting Eduation Xzvwjvi-dpntlxq-Iznldaqb degree Family Cijxegd-ogyumw-twpoqzvgne, brother had MS and depression and addiction Occupational History-accounting Eduation Gfzsmeh-qrcltqd-Ekfijihy degree Family Ynrupsa-etzakw-bhddoclkzf, brother had MS and depression and addiction Occupational History-accounting Eduation Vndkziw-djqqscg-Qaizhefg degree Family Uqlmgxc-trjskk-rkilfdxfav, brother had MS and depression and addiction Occupational History-accounting Eduation Fvpnpdk-dewfhla-Xvgglzcp degree Family Puauudj-ibigue-lzbdjzwdtw, brother had MS and depression and addiction Occupational History-accounting Eduation Gherjmn-mvuejig-Ilmskzay degree Family Tzproqd-ifjywj-hqnkyoqifj, brother had MS and depression and addiction Occupational History-accounting Eduation Gskirzt-ykumhxu-Cxuddgcm degree Family Jwnssis-ighgum-mwutuucgyn, brother had MS and depression and addiction Occupational History-accounting Eduation Dicsbgw-blqhcgz-Ucupphzo degree Family Snlnlzf-gelpzu-rfximbiiak, brother had MS and depression and addiction Occupational History-accounting Eduation Qxeklth-taunlzr-Upxhqlju degree Family Pzdwkdb-ldmcvy-ukprktztmv, brother had MS and depression and addiction Occupational History-accounting Eduation Kvuimpu-fahtvtq-Vipfghwt degree Family Fwjgreb-tgkptz-qfubjxknmb, brother had MS and depression and addiction Occupational History-accounting Eduation Bhehsyi-makqldb-Fblkdzaf degree Family Uknxnjg-jxlnjy-bpxsokuvzb, brother had MS and depression and addiction Occupational History-accounting Eduation Uiyhtfo-ktjodvr-Ntnfkbvo degree Family Fisbsnb-bzvydu-wubtxzbweg, brother had MS and depression and addiction Occupational History-accounting Eduation Xolcqnj-rioebut-Oeahxqqh degree Family Ktrerrd-xmwxww-bvpukefovc, brother had MS and depression and addiction Occupational History-accounting Eduation Wvtkwrp-dwuslav-Binyppeh degree Family Yfrufay-adnfbl-dfraiixoep, brother had MS and depression and addiction Occupational History-accounting Eduation Ceiukhv-zzqppfl-Xfcvescr degree Family Ukoobut-huaoem-yglexlhbpv, brother had MS and depression and addiction Occupational History-accounting Eduation Cofimgt-uyrixub-Rjdowdhd degree Family Aicsndm-abgfns-sathwydsab, brother had MS and depression and addiction Occupational History-accounting Eduation Avdvtve-ttnopzq-Mzdvoolk degree Family Rxaqajy-adpbrt-udmgthzmma, brother had MS and depression and addiction Occupational History-accounting Eduation Ubhazcr-czzqumw-Pkxdpljk degree Family Aslyizw-platbq-fdwfkjjvxo, brother had MS and depression and addiction Occupational History-accounting Eduation Desogbe-mhqyktv-Zxliqcut degree PRESCRIPTION # FILLED WRITTEN DRUG LABEL QTY DAYS STRENGTH MEDD PRESCRIBER PHARMACY REFILL NO. REFILLS STATE 01/10/2023 12/13/2022 ALPRAZolam 38.0 30 1 MG NA PacKaren soliman ([facility]) - [id number] [place] 1 [place] 1 [id number] 12/14/2022 12/13/2022 ALPRAZolam 38.0 30 1 MG NA PacKaren soliman ([facility]) - [id number] [place] NA 1 [place] 1 [id number] 11/18/2022 10/20/2022 ALPRAZolam 38.0 30 1 MG NA PacKaren soliman ([facility]) - [id number] Family Vgidgjt-mtnblf-xfybzkvzbp, brother had MS and depression and addiction Occupational History-accounting Eduation Hrihjei-fcpswfl-Tsdqfjuf degree PRESCRIPTION # FILLED WRITTEN DRUG LABEL QTY DAYS STRENGTH MEDD PRESCRIBER PHARMACY REFILL NO. REFILLS STATE 02/01/2023 01/19/2023 ALPRAZolam 34.0 30 1 MG NA Doris Lynch [facility] - [id number] [place] NA 1 [place] 1 [id number] 01/10/2023 12/13/2022 ALPRAZolam 38.0 30 1 MG NA PacKaren soliman ([facility]) - [id number] [place] PRESCRIPTION # FILLED WRITTEN DRUG LABEL QTY DAYS STRENGTH MME PRESCRIBER PHARMACY REFILL NO. REFILLS STATE 03/23/2023 02/23/2023 ALPRAZolam 34.0 30 1 MG NA Doris Lynch [employer] - [id number] [place] NA 1 [place] 1 [id number] 03/23/2023 03/23/2023 Zolpidem Tartrate 30.0 30 6.25 MG NA Cris Doris L Manometer Technician - [id number] [place] NA 0 [place] 1 [id number] 02/24/2023 02/23/2023 Zolpidem Tartrate 30.0 30 6.25 MG NA Cris Doris L Manometer Technician - [id number] [place] NA 0 [place] 1 [id number] 02/23/2023 02/23/2023 ALPRAZolam 34.0 30 1 MG NA Ck Lynchi L Manometer Technician - [id number] PRESCRIPTION # FILLED WRITTEN DRUG LABEL QTY DAYS STRENGTH MME PRESCRIBER PHARMACY REFILL NO. REFILLS STATE 05/18/2023 05/18/2023 ALPRAZolam 34.0 30 1 MG NA Cris Doris Billingsley Manometer Technician - [id number] [place] NA 0 [place] 1 [id number] 05/18/2023 05/18/2023 Zolpidem Tartrate 30.0 30 6.25 MG NA Cris Doris L Manometer Technician - [id number] [place] NA 0 [place] 1 [id number] 04/20/2023 04/20/2023 ALPRAZolam 34.0 30 1 MG NA CrisCkrocio Billingsley Manometer Technician - [id number] [place] NA 0 [place] 1 [id number] 04/20/2023 04/20/2023 Zolpidem Tartrate 30.0 30 6.25 MG NA CrisCki L Manometer Technician - [id number] PRESCRIPTION # FILLED WRITTEN DRUG LABEL QTY DAYS STRENGTH MME PRESCRIBER PHARMACY REFILL NO. REFILLS STATE 07/13/2023 07/13/2023 ALPRAZolam 34.0 30 1 MG NA Cris Doris Billingsley Manometer Technician - [id number] [place] NA 0 [place] 1 [id number] 07/13/2023 07/13/2023 Zolpidem Tartrate 30.0 30 6.25 MG NA Doris Lynch Manometer Technician - [id number] [place] NA 0 [place] 1 [id number] 06/15/2023 06/15/2023 ALPRAZolam 34.0 30 1 MG NA Doris Lynch Manometer Technician - [id number] [email or web address] PRESCRIPTION # FILLED WRITTEN DRUG LABEL QTY DAYS STRENGTH MME PRESCRIBER PHARMACY REFILL NO. REFILLS STATE 09/07/2023 09/07/2023 Zolpidem Tartrate 30.0 30 6.25 MG NA Doris Lynch Manometer Technician - [id number] [place] NA 0 [place] 1 [id number] 09/07/2023 09/07/2023 ALPRAZolam 34.0 30 1 MG NA Doris Lynch Manometer Technician - [id number] [place], [place] NA 0 [place] 1 [id number] 08/10/2023 08/10/2023 ALPRAZolam 34.0 30 1 MG NA Doris Lynch [facility] - [id number] [email or web address] Family Jdmjked-pyarja-jbszulecmj, brother had MS and depression and addiction Occupational History-accounting Eduation Xxtcnzx-iiwjsbu-Sqqpchjl degree Problems Problem Type SNOMED Code ICD Code Onset Dates Problem Status W/U Status Risk Notes Problem Tobacco user (213541014) Nicotine dependence, unspecified, uncomplicated (F17.200) Active confirmed Problem Chronic pain (80017196) Other chronic pain (G89.29) Active confirmed Problem Chronic bronchitis (24567560) Unspecified chronic bronchitis (J42) Active confirmed Problem Irritable bowel syndrome with diarrhea (267470816) Irritable bowel syndrome with diarrhea (K58.0) Active confirmed Problem Tobacco dependence (63148771) Tobacco dependence (F17.200) Active confirmed Problem Anxiety (03802505) Anxiety (F41.9) Active confi rmed Problem Vitamin D deficiency (11776847) Vitamin D deficiency (E55.9) Active confirmed Problem Obese class I (finding) (261256167430809) Obesity (BMI 30.0-34.9) (E66.9) Active confirmed Problem Cancer (504609579) Cancer (C80.1) Active confir med Problem Insomnia (476910777) Insomnia, unspecified type (G47.00) Active confirmed Problem Hyperlipidaemia (03477547) Hyperlipidemia, unspecified hyperlipidemia type (E78.5) Active confirmed Problem COPD - Chronic obstructive pulmonary disease (37264079) Chronic obstructive pulmonary disease, unspecified COPD type (J44.9) Active confirmed Problem Allergic rhinitis caused by pollen (44777514) Seasonal allergic rhinitis due to pollen (J30.1) Active confirmed Problem Pulmonary emphysema (82189822) Pulmonary emphysema, unspecified emphysema type (J43.9) 03/06/20 19 Active confirmed Problem Exposure to streptococcal pharyngitis (event) (5666192995916) Strep throat exposure (Z20.818) Active confirmed Problem Acute exacerbation of chronic obstructive airways disease (336291909) Chronic obstructive pulmonary disease with acute exacerbation (J44.1) Active confirmed Problem Solitary pulmonary nodule (498612927) Pulmonary nodule seen on imaging study (R91.1) Active confirmed Plan Of Treatment Future Test Test Name Order Date Vitamin D, 25-Hydroxy* 12/18/2018 Lipid Panel w/ Chol/HDL Ratio 12/18/2018 Insurance Providers Payer Name Payer Address Payer Phone Subscriber Number Group Number Insured Name Patient Relationship to Insured Coverage Start Date Coverage End Date [employer] [address] [place] [address] [id number] Linda Gray Self - patient is the insured 4 2 MEDICARE PART A [address] [place] [address] [id number] Linda Gray Self - patient is the insured 2 MEDICAID [address] [place] [address] [id number] Linda Gray Self - patient is the insured 3 [employer] [address] [place] [address] [id number] Linda Gray Self - patient is the [...]
--- OUTSIDE RECORDS SUMMARY | 2025-07-22 13:20 | XMS_ITS | Clinical Summary ---
Author Organization [facility] Fernanda Zarate Address [address] [place] [address] Care Team Providers Care Pi/Senior Research Associate Name Role Phone Unavailable Primary Care Provider [...] Encounters Date Type Department Care Team Description 07/18/2025 Telephone [facility] Oncology and Hematology - [address] [place] [address] Alli Pena MD Labs for appt 07/15/2025 External Device Data STL ABSTRACTION Provider, Abstract 06/11/2025 External Device Data ST[facility] ABSTRACTION Provider, Abstract 05/21/2025 External Device Data STL ABSTRACTION Provider, Abstract 05/07/2025 Orders Only [facility] Oncology and Hematology [facility] [address] [place] [address] Alli Pena MD 05/06/2025 Abstract [facility] Oncology and Hematology [address] [place] [address] Alli Pena MD from Last 3 Months Family History Medical [...] 02/17/2025 2:53 PM CDT Plan of Treatment Health Maintenance Due Date [...] 6 MONTHS 05/17/2024 11/17/2023 INFLUENZA VACCINE (#1) 2025 Procedures Procedure Name Priority Date/Time Associated Diagnosis Comments COMPREHENSIVE METABOLIC PANEL Routine 05/05/2025 8:00 AM CDT from Last 3 Months Results * COMPREHENSIVE METABOLIC PANEL (05/05/2025 8:00 AM CDT) Blood us Alli M Becky MD CHEMISTRY ORDERABLES Final Resu lt from Last 3 Months Insurance MEDICARE PART A AND B [facility]
--- OUTSIDE RECORDS SUMMARY | 2025-07-22 13:20 | XMS_ITS | Clinical Summary ---
Author Organization [facility] Address [address] [place] [address] Care Team Providers Care Log Chipper Name Role Phone Daly Redmond DO Primary Care Provider [phone] Source Comments [facility],non-owned Affiliates and Associated Physician Practices is amultiple site organization consisting of ambulatory clinics and hospital sitesin [place], [place], [place] and [place]. This disclosure is being madepursuant to the Care Everywhere program and may not contain all information available regarding this patient. Last updated 18.[facility] Allergies Active Allergy Reactions Criticality Noted Date [...] on file Legal Sex Female 5:50 AM [employer] Gender Identity Not on file Sexual Orientation [...] Oxygen Concentration 32% 12/14/2023 5 :48 PM [employer] Weight 78.5 kg (173 lb) 02/29/2024 10:06 AM CDT Height 167.6 cm (5' 6) 11/17/2023 8:00 AM [employer] Body Mass Index 27.92 11/17/2023 8:00 AM [employer] Plan of Treatment Health Maintenance Due Date [...] - Risk 60-74 years 1-dose series) 2017 DEPRESSION SCREENING 11/06/2024 11/16/2023 COVID-19 VACCINE (1 - 2023-2 5 season) 2025 INFLUENZA VACCINE (#1) 2025 8, 09/11/2014 HEPATITIS B VACCINE Aged Out No [...] this topic Medical Devices Implanted Type Area Garage Mechanic Device Identifier Shelf Expiration Date Model / Serial / Lot 9 Holes 153mm Right Extra Long Implanted:Qty: 1 on 12/01/2023 by Alex Merchant MD at [facility] Right: [employer] [id number] S / / Screw 3.5mm 6mm 24mm 2.5mm Ft Slf-Tap Implanted:Qty: 2 on 12/01/2023 by Alex Merchant MD at [facility] Right: Humerus [employer] [id number] / / Plate 1/3 Tblr [id number] Ss 2.7/3.5mm Implanted:Qty: 1 on 12/01/2023 by Alex Merchant MD at [facility] Right: Humerus [employer] [id number] / / Screw 2.7mm 24mm T8 Slf-Tap Lck Va Strdr Implanted:Qty: 1 on 12/01/2023 by Alex Merchant MD at [facility] Right: Humerus [employer] [id number] / / Screw 2.7mm 26mm T8 Slf-Tap Lck Va Strdr Implanted:Qty: 1 on 12/01/2023 by Alex Merchant MD at [facility] Right: Humerus [employer] [id number] / / Screw 2.7mm 30mm T8 Slf-Tap Lck Va Strdr Implanted:Qty: 1 on 12/01/2023 by Alex Merchant MD at [facility] Right: Humer[employer] [id number] / / Screw 3.5mm 2.9mm 16mm T15 Ft Slf-Tap Implanted:Qty: 1 on 12/01/2023 by Alex Merchant MD at [facility] Right: Humerus [employer] 212.104 / / Screw 3.5mm 2.9mm 20mm T15 Ft Slf-Tap Implanted:Qty: 3 on 12/01/2023 by Alex Merchant MD at [facility] Right: Humer[employer] 212.106 / / Screw 3.5mm 2.9mm 22mm T15 Ft Slf-Tap Implanted:Qty: 1 on 12/01/2023 by Alex Merchant MD at [facility] Right: Humerus [employer] 212.107 / / Screw 3.5mm 6mm 14mm Ft Hank Slf-Tap Sm Implanted:Qty: 1 on 12/01/2023 by Alex Merchant MD at [facility] Right: Humerus [employer] [id number] / / Explanted Type Area Garage Mechanic Device Identifier Shelf Expiration Date Model / Serial / Lot Screw 3.5mm 6mm 22mm 2.5mm Ft Slf-Tap Explanted:Qty: 2 on 12/01/2023 at [facility] Right: Humerus [employer] [facility] [id number] / / Insurance MEDICARE COMMERCIAL GENERIC Advance Directives * Full Code (Latest Code Status on File) Date Activated Date Inactivated Comments 11/16/2023 2:44 PM 12/25/2023 5:14 PM Care Teams Log Chipper Relationship Specialty Start Date End Date Daly Redmond DO [address] [place] [id number] PCP - General 03/06/19
== END 2025-07-22 11:15 | disposition home or self-care (01) ==
PROVIDERS: Visit Provider Internal Medicine Hematology & Oncology
DX: C34.12 Malignant neoplasm of upper lobe, left bronchus or lung (principal); J43.9 Emphysema, unspecified; R91.8 Other nonspecific abnormal finding of lung field
CPT/HCPCS: 71260; 74177; 78306; A9503; Q9967